=== PATIENT | female | born 1960 | race African-American/Black ===

== ENCOUNTER 2022-01-21 10:05 | Emergency (ER) | payer OTHER ==
[~2022-01-21] VITALS: Ht 167.6 cm; Wt 126.6 kg
[2022-01-21 10:23] VITALS: BP 102/49
--- NOTE | 2022-01-21 11:06 | NUR ---
MEDICAL STUDENT AT BEDSIDE.
--- NOTE | 2022-01-21 11:06 | NUR ---
61 Y/O FEMALE C/O R NECK/CYST/PIMPLE REDNESS PAIN 10/ X2WEEK. DENIES FEVER/CHILLS. DENIES N/V. PMH: DM, HTN, HLD, KIDNEY MASS ALLERGIES: NAPROXEN
--- NOTE | 2022-01-21 13:07 | NUR ---
61/F PRESENTS TO ED WITH C/O RIGHT NECK PAIN X2 WEEKS. PATIENT STATES SHE HAS HAD REDNESS AND TENDERNESS TO SITE, STATING SHE BELIEVES SHE HAS A CYST. DENIES N/V/D, FEVERS OR CHILLS.
[2022-01-21] MEDS ORDERED: LIDOCAINE MPF 1% 10 MG/ML VIAL INJ ONE (13:35)
[2022-01-21] MEDS ORDERED: CEPH500C16 PO (13:48)
--- NOTE | 2022-01-21 14:04 | NUR ---
MD LAUREANO AT BEDSIDE.
[2022-01-21] MEDS ORDERED: BACITRACIN OINT 500 UNITS/GM PKT TP ONE (14:05)
--- NOTE | 2022-01-21 14:53 | NUR ---
Patient discharged with v/s stable. Written and verbal after care instructions given and explained. Patient alert, oriented and verbalized understanding of instructions. Ambulatory with steady gait. All questions addressed prior to discharge. ID band removed. Patient advised to follow up with PMD. Rx of CEPHALEXIN given. Opportunity to ask questions provided and answered.
== END 2022-01-21 14:50 | disposition home or self-care (01) ==
LOC: MED 10:05
DX: S11.91XA Laceration without foreign body of unspecified part of neck, initial encounter (principal); I10 Essential (primary) hypertension; E11.9 Type 2 diabetes mellitus without complications; E78.5 Hyperlipidemia, unspecified; Z79.4 Long term (current) use of insulin; Z79.899 Other long term (current) drug therapy; Z79.1 Long term (current) use of non-steroidal anti-inflammatories (NSAID); X58.XXXA Exposure to other specified factors, initial encounter; Y93.89 Activity, other specified; Y92.89 Other specified places as the place of occurrence of the external cause; Y99.8 Other external cause status
CPT/HCPCS: 10060; 99284; J2001

== ENCOUNTER 2022-01-23 10:20 | Emergency (ER) | payer OTHER ==
[~2022-01-23] VITALS: Ht 167.6 cm; Wt 131.1 kg
[~2022-01-23 10:20] MED LIST: CEPH500C16 PO
[2022-01-23 10:36] VITALS: BP 115/74
--- NOTE | 2022-01-23 10:46 | NUR ---
PT W/C ASSISTED TO BED 4.
--- NOTE | 2022-01-23 11:20 | NUR ---
61 Y.O. F BIB FAMILY FOR WOUND CHECK. SEEN HERE 2 DAYS AGO FOR ACUTE INFECTED RIGHT LATERAL NECK CYST S/P I&D. PT SAYS THAT AFTER BATHING THIS MORNING THE SITE WAS BURNING AND PAINFUL. 9/10 PAIN RIGHT NOW. PT WAS GIVEN ANTIBIOTIC ON THURSDAY AND TAKES NORCOS AT HOME FOR ARTHRITIS. TOOK LAST DOSE OF NORCO AT 0730 THIS MORNING. A&OX4, WALKS WITH A WALKER, VITALS WNL FOR PT AND SKIN IS INTACT EXCEPT FOR NECK WOUND. PMH: DM, HLD, HTN
[2022-01-23 12:32] VITALS: BP 115/74
--- NOTE | 2022-01-23 12:33 | NUR ---
Patient discharged with v/s stable. Written and verbal after care instructions given and explained. Patient verbalized understanding. Ambulatory with steady gait. All questions addressed prior to discharge. Advised to follow up with PMD.
== END 2022-01-23 12:33 | disposition home or self-care (01) ==
LOC: MED 10:20
DX: L02.413 Cutaneous abscess of right upper limb (principal); E11.9 Type 2 diabetes mellitus without complications; I10 Essential (primary) hypertension; Z79.899 Other long term (current) drug therapy; Z88.8 Allergy status to other drugs, medicaments and biological substances
CPT/HCPCS: 99281

== ENCOUNTER 2022-08-12 13:20 | Inpatient (IN) | payer MEDICARE, OTHER ==
[~2022-08-12] VITALS: Ht 170.2 cm; Wt 124.9 kg
[2022-08-12] MEDS: DEXTROSE 5% 1,000 ML IV SCH (01:00)
[2022-08-12 13:26] VITALS: BP 86/47
--- NOTE | 2022-08-12 13:26 | NUR ---
BIBA TAKEN TO BED 6
[2022-08-12] MEDS ORDERED: NALOXONE 0.4 MG/ML VIAL ONE (13:38)
[2022-08-12] MEDS ORDERED: NALOXONE 0.4 MG/ML VIAL IVP ONE (13:40)
--- NOTE | 2022-08-12 14:08 | NUR ---
LAB AT BEDSIDE
--- NOTE | 2022-08-12 14:08 | NUR ---
pt swabbed for covid(ellie) and flu. handed to lab
[2022-08-12 14:37] LABS: BASOPHILS # (AUTO) 0.1 K/uL (0.00-0.22); EOSINOPHILS # (AUTO) 0.2 K/uL (0-0.4); EOSINOPHILS % (AUTO) 1.8 % (0.0-4.0); HEMATOCRIT 44.5 % (36-48); HEMOGLOBIN 13.5 g/dL (12.0-16.0); LYMPHOCYTES # (AUTO) 2.6 K/uL (2.5-16.5); LYMPHOCYTES % (AUTO) 27.3 % (20.5-51.1); MEAN CORPUSCULAR HEMOGLOBIN 28 pg (27-31); MEAN CORPUSCULAR HGB CONC 30 g/dL (33-37); MEAN CORPUSCULAR VOLUME 91.6 fL (80-94); MONOCYTES % (AUTO) 10.7 % (1.7-9.3); NEUTROPHILS # (AUTO) 5.6 K/uL (1.8-7.7); NEUTROPHILS % (AUTO) 59.2 % (42.2-75.2); PLATELET COUNT (AUTO) 272 K/uL (140-450); RED BLOOD CELL COUNT(AUTO) 4.86 MIL/uL (4.20-5.40); RED CELL DISTRIBUTION WIDTH 16.3 % (11.6-13.7); WHITE BLOOD COUNT (AUTO) 9.4 K/uL (4.8-10.8)
[2022-08-12 14:56] LABS: PROTHROMBIN TIME 14.6 secs (10.8-13.4)
[2022-08-12 15:02] LABS: ALBUMIN 2.7 g/dL (3.4-5.0); ANION GAP 10.6 (8-16); CARBON DIOXIDE 21.5 mmol/L (21-32); POTASSIUM 4.1 mmol/L (3.5-5.1); TOTAL BILIRUBIN 0.5 mg/dL (0.0-1.0)
[2022-08-12] MEDS ORDERED: SODIUM BICARBONATE 8.4% PFS 50 MEQ/50 ML SYR IVP ONE ×2 (15:40)
[2022-08-12] MEDS ORDERED: NACL 3% 100 ML IV ONE (15:40)
--- NOTE | 2022-08-12 16:10 | NUR ---
ABG RESULTS GIVEN TO , BIPAP SETTINGS ADJUSTED TO 16/6, R18 FIO2 REMAINS 100%. ALARMS ON AND FUNCTIONING.
--- NOTE | 2022-08-12 16:16 | NUR ---
pt went to ct
--- NOTE | 2022-08-12 16:50 | NUR ---
Dr Hogan at bedside, discussing intubation with patient. pt refused intubation at this time. dr Hogan explained risk of not intubating. pt on bipap at this time.
[2022-08-12] MEDS ORDERED: METF-713 PO (16:53)
[2022-08-12] MEDS ORDERED: SITA50TA3 PO (16:53)
[2022-08-12] MEDS ORDERED: AMLO-3 PO (16:53)
[2022-08-12] MEDS ORDERED: HYDR-4924 PO (16:53)
[2022-08-12] MEDS ORDERED: LISI20TA29 PO (16:53)
--- NOTE | 2022-08-12 17:00 | NUR ---
Pt arrived to ED from home. DNR in chart dated. Pt wishes DNR. Dr. Crocker confirmed with patient at bedside. per dr. crocker, pt is alert to make decision.
--- NOTE | 2022-08-12 17:24 | NUR ---
after careful discussion, pt wishes to be full code and verbally agreed for intubation.
[2022-08-12] MEDS ORDERED: NACL 0.9% 1,000 ML IV ONE (17:40)
[2022-08-12] MEDS ORDERED: MORPHINE SULFATE 2 MG/ML SYR IVP PRN (17:40)
[2022-08-12] MEDS ORDERED: ACETAMINOPHEN 325 MG TAB PO PRN (17:40)
[2022-08-12] MEDS ORDERED: POTASSIUM CHLORIDE 10 MEQ TABER PO PRN (17:40)
[2022-08-12] MEDS ORDERED: guaiFENesin DM 200/20 MG-10 ML 10 ML UDC PO PRN (17:40)
[2022-08-12] MEDS ORDERED: HYDROcodone/APAP 7.5/325 MG 1 TAB PO PRN (17:40)
[2022-08-12] MEDS ORDERED: ZOLPIDEM 5 MG TAB PO PRN (17:40)
[2022-08-12] MEDS ORDERED: DOCUSATE SODIUM 100 MG GELCAP PO PRN (17:40)
[2022-08-12] MEDS ORDERED: ONDANSETRON 4 MG/2 ML VIAL IM/IVP PRN (17:40)
[2022-08-12] MEDS ORDERED: INTUBATION KIT MC ONE (17:56)
[2022-08-12] MEDS ORDERED: EPINEPHrine PFS 0.1 MG/ML SYR IVP ONE (18:09)
[2022-08-12] MEDS ORDERED: EPINEPHrine 1 MG/ML AMP IV ONE (18:14)
--- NOTE | 2022-08-12 18:14 | NUR ---
PER DR JAMESON VERBAL ORDER, ADMINISTERED 0.1MG EPI IN 9ML NS IV PUSH. Addendum: 08/12/22 at [email or web address] JAMESON VERBAL ORDER, ADMINISTERED 0.01MG EPI IN 9ML NS IV PUSH.
--- NOTE | 2022-08-12 18:18 | NUR ---
intubation note: 1814: etomidate 30, frank 100 infused 1815: intubation initiated with 7.5 ettube 1817: intubation completed, 23 cm@ teeth
--- NOTE | 2022-08-12 18:25 | NUR ---
DATABASE ADMINISTRATION PROJECT MANAGER BEDSIDE FOR POST INTUBATION X RAY
[2022-08-12 18:28] LABS: MAGNESIUM 1.8 mg/dL (1.8-2.4); PHOSPHORUS 4.8 mg/dL (2.5-4.9)
[2022-08-12] MEDS ORDERED: MIDAZOLAM MDV 50 MG in NACL 0.9% 40 ML IV PRN (18:30)
--- NOTE | 2022-08-12 18:35 | NUR ---
Patient will be admitted to care of DR OSEGUERA. Admited to ICU. Will go to room1. Belongings list completed. Report to ANASTASIA SKAGGS.
--- NOTE | 2022-08-12 18:50 | NUR ---
RECEIVED PT FROM ER, INTUBATED, F/C INSERTED USING STERILE TECHNIQUE, OG INSERTED. IV VERSED STARTED PER PROTOCOL. STACH ON MONITOR. BILATERAL 20G TO ACS INTACT AND PATENT.
[2022-08-12] MEDS ORDERED: ETOMIDATE 20 MG/10 ML VIAL IVP ONE (18:55)
[2022-08-12] MEDS ORDERED: SUCCINYLCHOLINE CHLORIDE 200 MG/10 ML VIAL IVP ONE (18:55)
[2022-08-12] MEDS ORDERED: ROCURONIUM 50 MG/5 ML VIAL IV ONE (19:05)
[2022-08-12] MEDS: EPINEPHrine 1 MG/ML AMP IV ONE ×2 (19:08→19:21)
--- NOTE | 2022-08-12 19:08 | NUR ---
REPORT GIVEN TO JAMIE SKAGGS FOR CONTINUATION OF CARE
--- NOTE | 2022-08-12 19:15 | NUR ---
TRANSFER OF CARE FROM DAY SHIFT, REPORT RECEIVED FROM GILES OCONNOR. PATIENT RECEIVED INTUBATED, SEDATED, AND ON VENT. CURRENT VENT SETTINGS ARE FOLLOWS: AC/VC, FIO2 = 100%, VT = 500, R = 24, PEEP = OFF. PATIENT HAS 20G IN THE RIGHT AC AND HAS THE FOLLOWING MEDICATIONS RUNNING: VERSED 50MG AT 1MG/HR. NORMAL SALINE AT 30ML/HR, CURRENT VITALS AT START OF SHIFT: BP = 139/82, HR= 101, O2 SAT = 96%, R = 24, TEMP = 97.0F
[2022-08-12 20:00] VITALS: BP 132/69
[2022-08-12 20:26] LABS: ANION GAP 12.7 (8-16); CARBON DIOXIDE 29.2 mmol/L (21-32); CREATININE 1.4 mg/dL (0.6-1.3); POTASSIUM 5.9 mmol/L (3.5-5.1)
[2022-08-12] MEDS ORDERED: fentaNYL citrate 0.05 MG/ML VIAL ONE (20:49)
[2022-08-12 21:00] VITALS: BP 122/62
[2022-08-12] MEDS: fentaNYL citrate 1 MG in NACL 0.9% 80 ML IV PRN (21:10)
[2022-08-12] MEDS ORDERED: AZITHROMYCIN 500 MG INJ VIAL IV ONE (21:18)
[2022-08-12] MEDS ORDERED: cefTRIAXone 1,000 MG VIAL ONE (21:19)
[2022-08-12] MEDS: PROPOFOL 1000 MG/100 ML PREMIX 100 ML IV PRN (21:42)
[2022-08-12] MEDS ORDERED: PROPOFOL 1000 MG/100 ML PREMIX 100 ML IV ONE (21:42)
[2022-08-12 22:00] VITALS: BP 125/76
[2022-08-12] MEDS ORDERED: SODIUM ZIRCONIUM CYCLOSILICATE 10 GM POWD.PACK PO SCH (22:10)
[2022-08-12 23:00] VITALS: BP 124/61
[2022-08-13] VITALS (21 sets, daily range): BP systolic 78–131; BP diastolic 45–77
[2022-08-13] MEDS: AZITHROMYCIN 500 MG in DEXTROSE 5% 250 ML IV SCH ×2 (00:23→21:08)
[2022-08-13] MEDS: BLOOD GLUCOSE MONITORING 1 DEV DEV FS SCH ×4 (00:37→18:20)
[2022-08-13 00:42] LABS: ANION GAP 15.3 (8-16); CARBON DIOXIDE 26.8 mmol/L (21-32); CREATININE 1.2 mg/dL (0.6-1.3); POTASSIUM 5.1 mmol/L (3.5-5.1)
[2022-08-13] MEDS: DEXTROSE 5% 1,000 ML IV SCH ×4 (01:00→20:22)
[2022-08-13] MEDS: PROPOFOL 1000 MG/100 ML PREMIX 100 ML IV PRN ×4 (01:18→20:20)
[2022-08-13] MEDS ORDERED: NOREPINEPHRINE 4 MG/4 ML VIAL IV ONE (02:37)
[2022-08-13] MEDS: NOREPINEPHRINE 4 MG in DEXTROSE 5% 250 ML IV PRN ×2 (02:38→14:49)
[2022-08-13 05:11] LABS: BASOPHILS # (AUTO) 0.1 K/uL (0.00-0.22); BASOPHILS % (AUTO) 0.5 % (0.0-2.0); EOSINOPHILS # (AUTO) 0.2 K/uL (0-0.4); EOSINOPHILS % (AUTO) 1.8 % (0.0-4.0); HEMATOCRIT 41.3 % (36-48); HEMOGLOBIN 12.8 g/dL (12.0-16.0); LYMPHOCYTES # (AUTO) 2.1 K/uL (2.5-16.5); LYMPHOCYTES % (AUTO) 17.7 % (20.5-51.1); MEAN CORPUSCULAR HEMOGLOBIN 27 pg (27-31); MEAN CORPUSCULAR HGB CONC 31 g/dL (33-37); MEAN CORPUSCULAR VOLUME 88.4 fL (80-94); MONOCYTES # (AUTO) 1.5 K/uL (0.8-1.0); MONOCYTES % (AUTO) 12.3 % (1.7-9.3); NEUTROPHILS # (AUTO) 8.2 K/uL (1.8-7.7); NEUTROPHILS % (AUTO) 67.7 % (42.2-75.2); PLATELET COUNT (AUTO) 249 K/uL (140-450); RED BLOOD CELL COUNT(AUTO) 4.67 MIL/uL (4.20-5.40); RED CELL DISTRIBUTION WIDTH 16.3 % (11.6-13.7); WHITE BLOOD COUNT (AUTO) 12.1 K/uL (4.8-10.8)
[2022-08-13 05:19] LABS: ANION GAP 13.3 (8-16); CARBON DIOXIDE 27.7 mmol/L (21-32); CREATININE 1.1 mg/dL (0.6-1.3)
[2022-08-13] MEDS ORDERED: fentaNYL citrate 0.05 MG/ML VIAL ONE ×2 (05:52→05:53)
[2022-08-13] MEDS: fentaNYL citrate 1 MG in NACL 0.9% 80 ML IV PRN (06:04)
[2022-08-13 06:34] LABS: BARBITURATE, URINE NEGATIVE ng/ml (NEG <=200); BENZODIAZEPINE, URINE NEGATIVE ng/mL (NEG <=200); CANNABINOID, URINE NEGATIVE ng/mL (NEG <=50); COCAINE, URINE NEGATIVE ng/mL (NEG <=300); OPIATE, URINE POSITIVE ng/mL (NEG <=2000); PHENCYCLIDINE SCREEN,URINE NEGATIVE ng/mL (NEG <=25)
[2022-08-13] MEDS: INSULIN LISPRO SLIDING SCALE 100 UNITS/ML VIAL SUBQ PRN ×2 (06:40→18:22)
--- NOTE | 2022-08-13 07:30 | NUR ---
TRANSFER OF CARE ENDORSED TO [place] RN
[2022-08-13] MEDS ORDERED: PANTOPRAZOLE 40 MG INJ VIAL IVP SCH (09:00)
[2022-08-13] MEDS ORDERED: PANTOPRAZOLE 40 MG TABEC PO SCH (09:00)
--- NOTE | 2022-08-13 09:32 | NUR ---
PATIENT HAS BEEN SCREENED AND CATEGORIZED HIGH NUTRITION RISK. PATIENT WILL BE SEEN WITHIN 1-[address] RECEIVED FNS NUTRITION CONSULT FOR TUBE FEEDING ON 08/13/[address] KANU BEATTY RD
[2022-08-13 09:55] LABS: ANION GAP 12.1 (8-16); CREATININE 1.2 mg/dL (0.6-1.3); POTASSIUM 5.1 mmol/L (3.5-5.1)
--- NOTE | 2022-08-13 10:51 | NUR ---
PICC LINE NURSE AT BEDSIDE.
[2022-08-13] MEDS: PANTOPRAZOLE 40 MG INJ VIAL IVP SCH (13:23)
--- NOTE | 2022-08-13 13:40 | NUR ---
DC PLANNIN YRS OLD FEMALE PATIENT WAS ADMITTED FROM HOME WITH A DX OF HYPONATREMIA. PT HAS A HX OF DM, HTN, HLD AND ARTHRITIS. PT INTUBATED SEDATED FIO2 65% ON PROPOFOL , FENTANYL , PRECEDEX DRIP IV ABX ZOSYN CONSULTED WITH PULMO, CARDIO, NEPHRO. DC PLAN PER PT RESPOND TO THE TREATMENT. CM TO FOLLOW Addendum: 08/20/22 at 1751 by Kayla Cramer RN DC PLANNING PT STILL INTUBATED SEDATED FIO2 40%, FAILED CPAP TRIAL ON PRECEDEX DRIP CONTINUED IV ABX ZOSYN. PULMO, CARDIO, AND NEPHRO FOLLOWING. ZACH SPOKE WITH PT'S SON (DECISION MAKER) FOR UPDATES. CM TO FOLLOW Addendum: 08/22/22 at 1128 by Kayla Cramer RN DC PLANNING: PATIENT CONTINUOUS TO FAIL CPAP TRIALS, STILL INTUBATED SEDATED ON PRECEDEX DRIP OFF PROPOFOL. CONTINUED IV ABX WITH ZOSYN. PER CRITICAL CARE DR HASKINS MAY NEED TRACHEOSTOMY NEXT WEEK IF UNABLE TO BE EXTUBATED BY THIS WEEKEND. CM CONTACT [facility] [phone] STATED MEDICARE A& B WILL BE RESPONSIBLE FOR HOSPITAL STAY HOWEVER TO CONTACT THEM FOR ANY DC NEEDS. CM TO FOLLOW Addendum: 08/26/22 at 1104 by Kayla Cramer RN DC PLANNING: PATIENT STILL INTUBATED SEDATED ON DOPAMINE DRIP AND CONTINUED IV ABX ZOSYN. PROGNOSIS IS POOR . FAMILY STATED NO PLAN FOR TRACH WEAN TOLERATED. RECOMMENDED INPT HOSPICE. CM TO FOLLOW Addendum: 08/28/22 at 1227 by Kayla Cramer RN DC PLANNING: PATIENT STILL INTUBATED SEDATED FIO2 30%. CONTINUED IV ABX ZOSYN. ON DOPAMINE AND PRECEDEX DRIPS. PER PULMO PATIENT IS NOT TOLERATED CPAP DISCUSSED WITH FAMILY AND SON WILL DISCUSS WITH FAMILY IF NO BETTER BY THURSDAY NEEDS TO DECIDE. CM TO FOLLOW
--- NOTE | 2022-08-13 13:59 | NUR ---
Seen and examined by Dr. Mallory. New order received for echo.
[2022-08-13 14:29] LABS: ANION GAP 12.4 (8-16); CARBON DIOXIDE 27.1 mmol/L (21-32); CREATININE 1.2 mg/dL (0.6-1.3); POTASSIUM 4.5 mmol/L (3.5-5.1)
--- NOTE | 2022-08-13 15:17 | NUR ---
Seen and examined by Dr. Rdz. Reported BMP results. Pt to continue D5W IVF and BMP Q6hr.
--- NOTE | 2022-08-13 15:21 | NUR ---
08/13/22 INITIAL ASSESSMENT COMPLETED PLEASE REFER TO NUTRITION ASSESSMENT UNDER CARE ACTIVITY FOR ESTIMATED NUTRITIONAL NEEDS. 1. CONTINUE NPO, PER MD 2. WHEN MEDICALLY APPROPRIATE, AND IF PT STARTS TUBE FEEDING, RECOMMEND GLUCERNA 1.2 @65 ML/HR, FWF 100 ML Q6H - WITH PROPOFOL @15.296 ML/HR (PROVIDES (403 KCAL/DAY), WILL PROVIDE 1560 ML TOTAL VOLUME, 2275 KCAL, 93.6 G PROTEIN, 1655 ML FREE WATER, MEETING 100% ESTIMATED CALORIE NEEDS AND 80% ESTIMATED PROTEIN NEEDS 3. RD TO FOLLOW-UP 2-3 DAYS, HIGH RISK REVIEWED BY KANU BEATTY RD
--- NOTE | 2022-08-13 17:20 | NUR ---
Dr. Justin at bedside examining patient. No new orders.
--- NOTE | 2022-08-13 19:10 | NUR ---
RECEIVED REPORT FROM KODY SKAGGS FOR CONTINUITY OF CARE. PT IS LYING SUPINE WITH HER EYES CLOSED. SHE IS AT A RASS -2 ON THE VENTILATOR ETT. HER SETTINGS ARE AC/VC FIO2 75%, TV 500, RATE24 AND PEEP 5. SHE IS RECEIVING SEDATION FENTANYL 1.5MG AND PROPOFOL 20MCG/KG/MIN PT HAS AN OGT WITH GLUCERNA 1.2 AT 20CC/HR AND FREE WATER AT 100CC Q6HOUR. SHE IS TOLERATING THE TREATMENTS WELL. HER RESIDUAL IS 0. SHE HAS A ROBLES ATH IN PLACE DRAINING A SMALL AMT OF KIDD YELLOW URINE.. HER IV ACCESS IS THE EMELY PICC LINE.
--- NOTE | 2022-08-13 19:23 | NUR ---
Endorsed to mine shifter nurse Lazaro for continuation of care.
--- NOTE | 2022-08-13 19:55 | NUR ---
SUPERVISOR AIRCRAFT CLEANING AT THEBEDSIDE DRAWING A BMP FROM THE LEFT BRACHIAL SITE.
[2022-08-13 20:20] LABS: ANION GAP 11.4 (8-16); CARBON DIOXIDE 27.1 mmol/L (21-32); CREATININE 1.1 mg/dL (0.6-1.3); POTASSIUM 4.5 mmol/L (3.5-5.1)
--- NOTE | 2022-08-13 20:55 | NUR ---
SODIUM RESULT FROM DRAW IS 138
--- NOTE | 2022-08-13 23:15 | NUR ---
CALLED PLACE TO THE NEPHROLOGY GROUP TO OBTAIN THE COUPON AND BOND COLLECTION CLERK MD. THE SERVICE SAID DR ESPAÑA WAS COUPON AND BOND COLLECTION CLERK; SHE PLACED A CALL TO HIM,I'M WAITING FOR A CALL BACK.
--- NOTE | 2022-08-13 23:30 | NUR ---
DR. ESPAÑA CALLED BACK AND ORDERED THE D5W TO BE CONTINUED.
[2022-08-14] VITALS (30 sets, daily range): BP systolic 86–142; BP diastolic 51–94
[2022-08-14] MEDS: BLOOD GLUCOSE MONITORING 1 DEV DEV FS SCH ×4 (00:20→17:19)
[2022-08-14] MEDS: INSULIN LISPRO SLIDING SCALE 100 UNITS/ML VIAL SUBQ PRN ×4 (00:22→17:19)
[2022-08-14] MEDS: PROPOFOL 1000 MG/100 ML PREMIX 100 ML IV PRN ×6 (00:54→21:58)
[2022-08-14 02:14] LABS: ANION GAP 12.4 (8-16); CARBON DIOXIDE 24.9 mmol/L (21-32); POTASSIUM 4.3 mmol/L (3.5-5.1)
[2022-08-14] MEDS ORDERED: NOREPINEPHRINE 4 MG/4 ML VIAL IV ONE ×2 (03:13→09:39)
[2022-08-14] MEDS: fentaNYL citrate 1 MG in NACL 0.9% 80 ML IV PRN ×4 (06:21→22:15)
--- NOTE | 2022-08-14 07:10 | NUR ---
RPORT GIVEN TO ANA SKAGGS FOR CONTINUITY OF CARE.
[2022-08-14 08:18] LABS: BASOPHILS # (AUTO) 0.1 K/uL (0.00-0.22); BASOPHILS % (AUTO) 0.5 % (0.0-2.0); EOSINOPHILS # (AUTO) 0.2 K/uL (0-0.4); EOSINOPHILS % (AUTO) 1.3 % (0.0-4.0); HEMATOCRIT 40.2 % (36-48); HEMOGLOBIN 12.6 g/dL (12.0-16.0); LYMPHOCYTES # (AUTO) 2.2 K/uL (2.5-16.5); LYMPHOCYTES % (AUTO) 13.1 % (20.5-51.1); MEAN CORPUSCULAR HEMOGLOBIN 27 pg (27-31); MEAN CORPUSCULAR HGB CONC 31 g/dL (33-37); MONOCYTES % (AUTO) 11.9 % (1.7-9.3); NEUTROPHILS # (AUTO) 12.1 K/uL (1.8-7.7); NEUTROPHILS % (AUTO) 73.2 % (42.2-75.2); PLATELET COUNT (AUTO) 231 K/uL (140-450); RED BLOOD CELL COUNT(AUTO) 4.62 MIL/uL (4.20-5.40); WHITE BLOOD COUNT (AUTO) 16.6 K/uL (4.8-10.8)
[2022-08-14] MEDS: PANTOPRAZOLE 40 MG INJ VIAL IVP SCH (09:03)
[2022-08-14] MEDS: NOREPINEPHRINE 4 MG in DEXTROSE 5% 250 ML IV PRN ×2 (10:12→17:55)
[2022-08-14] MEDS: DEXTROSE 5% 1,000 ML IV SCH ×3 (10:15→21:40)
[2022-08-14 11:13] LABS: MAGNESIUM 1.2 mg/dL (1.8-2.4); PHOSPHORUS 2.1 mg/dL (2.5-4.9)
[2022-08-14] MEDS: PIPERACILLIN/TAZOBACTAM 3.375 GM in DEXTROSE 5% 50 ML IV SCH ×3 (11:48→23:31)
[2022-08-14] MEDS ORDERED: MAG SULF 2000 MG/WATER PREMIX 50 ML IV SCH (12:00)
[2022-08-14] MEDS ORDERED: FUROSEMIDE 20 MG/2 ML VIAL IVP SCH (13:35)
[2022-08-14 13:36] LABS: ANION GAP 13.9 (8-16); CHLORIDE 98 mmol/L (98-107); CREATININE 1.2 mg/dL (0.6-1.3); GFR ARICAN-AMERICAN 59 mL/min (>90); GLUCOSE 206 mg/dL (74-106); POTASSIUM 3.9 mmol/L (3.5-5.1); SODIUM SERUM 134 mmol/L (136-145); UREA NITROGEN, BLOOD 18 mg/dL (7-18)
--- NOTE | 2022-08-14 15:36 | NUR ---
NURSE RECEIVED ORDER TO TURN OFF SEDATION AND HAVE RT PLACE PT ON CPAP - PATIENT WOKE VERY COMBATIVE - TRYING TO SIT UP - PATIENT HAD A GOOD RESPIRATORY DRIVE ON CPAP - WEANING PARAMETERS WERE DOCUMENTED ON FLOW SHEET - PATIENT WOULD NOT HOLD STILL AND NURSE HAD TO PLACE PATIENTS SEDATION BACK ON BOARD - NURSE TOOK NOTE THAT PATIENT WAS ABLE TO BREATHE ON HER OWN AND STATED SHE WILL BE INFORMING MD OF RESULTS OF SEDATION VACATION AND CPAP.
--- NOTE | 2022-08-14 16:29 | NUR ---
DC PLANNING ASSESSMENT COMPLETE PLEASE REFER TO ASSESSMENT FOR DETAILS TENTATIVE DC PLAN IS FOR PT TO RETURN HOME, PENDING PHYSICIAN RECOMMENDATIONS. . Addendum: 08/14/22 at 1630 by Ken Zepeda SS Amended: Links added. Addendum: 08/21/22 at 1434 by Ken Zepeda SS SPOKE WITH PTS SON ANA, WHO REPORTS HE IS CURRENTLY IN TOWN FROM [place]. ANA REPORTS HE FLEW IN THURSDAY AND WILL BE IN TOWN FOR FOR THE NEXT FEW WEEKS. ANA REPORTS HES BEEN IN TO VISIT PT AND HAS BEEN PROVIDED WITH UPDATES NEEDED.
--- NOTE | 2022-08-14 18:40 | NUR ---
RECEIVED REPORT FROM AM SHIFT. PATIENT WAS SEEN AND ASSESSED. PATIENT IS INTUBATED WITH ETT SIZE 7.5 AND SECURED WITH A BITING BLOCK ANCHOR-FAST 24cm @ TEETH. PATIENT IS ON VENTILATOR SUPPORT. VENTILATOR PLUGGED IN RED OUTLET. VENTILATOR ALARMS SET APPROPRIATELY AND AUDIBLE TO ENVIRONMENT. AMBU BAG AT BEDSIDE. HEAD OF BED GREATER THAN 30 DEGREES. NOTICED ADEQUATE BILATERAL CHEST RISE AND FALL. PATIENT IS IN NO RESPIRATORY DISTRESS AT THIS TIME. VENT SETTINGS: AC/PRVC RR 24, TARGETED Vt 500, PEEP 5, FiO2 65% WITH SPO2 OF 92%. BILATERAL BREATH SOUNDS ON AUSCULTATION; UPPER LOBES: COARSE LOWER LOBES: COARSE. SUCTION: SCANT TO SMALL AMOUNT OF WHITE THICK SECRETIONS FROM ETT AND SMALL WHITE THIN ORALLY.
--- NOTE | 2022-08-14 19:30 | NUR ---
ASSUMED CARE OF THIS PATIENT AND ASSESSMENT DONE AND.COMPLETED.SEDATED ON FROPOFOL AT 30MCG AND FENTANYL AT 1.5MCG.RESTRAINTS IN PLACE .ON VENT SETTINGS AC/PRVC 16 FIO2 65% TV 500 PEEP 5,WITH NOTED MINIMUM SECRETIONS.GLUCERNA TUBE FEEDING INFUSING WELL AT 65ML/HOUR WITH WATER FLUSHES OF 100 ML EVERY 6 HOURS.PICC LINE PATENT ,BENIGN AND INTACT ON RIGHT UPPER ARM WITH D5W AT 125ML/HR.ROBLES DRAINING INCREASE URINE OUTPUT SECONDARY TO LASX.WILL CONTINUE TO MONITOR
[2022-08-15] VITALS (31 sets, daily range): BP systolic 86–131; BP diastolic 47–73
[2022-08-15] MEDS: BLOOD GLUCOSE MONITORING 1 DEV DEV FS SCH ×5 (00:14→23:19)
[2022-08-15] MEDS: INSULIN LISPRO SLIDING SCALE 100 UNITS/ML VIAL SUBQ PRN ×5 (00:17→23:18)
[2022-08-15] MEDS: PROPOFOL 1000 MG/100 ML PREMIX 100 ML IV PRN ×5 (01:50→23:28)
[2022-08-15] MEDS: fentaNYL citrate 1 MG in NACL 0.9% 80 ML IV PRN (03:08)
--- NOTE | 2022-08-15 04:38 | NUR ---
AT BEDSIDE, SPO2 95%. TITRATED FiO2 FROM 65% TO 60%. SPO2 93%. PT TOLERATING WELL AT THIS TIME. RN NOTIFIED. WILL CONTINUE TO MONITOR PT.
[2022-08-15 05:31] LABS: BASOPHILS # (AUTO) 0.1 K/uL (0.00-0.22); BASOPHILS % (AUTO) 0.4 % (0.0-2.0); EOSINOPHILS # (AUTO) 0.3 K/uL (0-0.4); EOSINOPHILS % (AUTO) 2.1 % (0.0-4.0); HEMATOCRIT 37.3 % (36-48); HEMOGLOBIN 12.1 g/dL (12.0-16.0); LYMPHOCYTES # (AUTO) 2.4 K/uL (2.5-16.5); LYMPHOCYTES % (AUTO) 14.4 % (20.5-51.1); MEAN CORPUSCULAR HEMOGLOBIN 28 pg (27-31); MEAN CORPUSCULAR HGB CONC 33 g/dL (33-37); MEAN CORPUSCULAR VOLUME 86.5 fL (80-94); MONOCYTES # (AUTO) 2.1 K/uL (0.8-1.0); MONOCYTES % (AUTO) 12.4 % (1.7-9.3); NEUTROPHILS # (AUTO) 11.8 K/uL (1.8-7.7); NEUTROPHILS % (AUTO) 70.7 % (42.2-75.2); PLATELET COUNT (AUTO) 195 K/uL (140-450); RED BLOOD CELL COUNT(AUTO) 4.31 MIL/uL (4.20-5.40); RED CELL DISTRIBUTION WIDTH 15.9 % (11.6-13.7); WHITE BLOOD COUNT (AUTO) 16.7 K/uL (4.8-10.8)
[2022-08-15] MEDS: DEXTROSE 5% 1,000 ML IV SCH (06:17)
[2022-08-15] MEDS: PIPERACILLIN/TAZOBACTAM 3.375 GM in DEXTROSE 5% 50 ML IV SCH ×4 (06:27→23:21)
--- NOTE | 2022-08-15 07:00 | NUR ---
ENDORSED [facility] DAY SHIFT RN TO CONTINUE CARE PLAN.
--- NOTE | 2022-08-15 07:32 | NUR ---
SBAR REPORT REPORT RECEIVED FROM ODILIA RN, ALL CARES ASSUMED. PT INTUBATED AND SEDATED. VENT SETTINGS AC/PRVC 24, 500, 60%, 5. LEVOPHED, PROPOFOL, FENTANYL AND IVF INFUSING TO EMELY PICC. ROBLES CATHETER DRAINING CLEAR YELLOW URINE. BED IN LOW AND LOCKED POSITION.
--- NOTE | 2022-08-15 07:50 | NUR ---
CPAP TRIAL 05/27. PT ANXIETY AND SATURATION DROPPED TO BELOW 86%. RETURNED TO CURRENT VENT SETTING ACVC 500,24, +6,60%. WILL TRY AGAIN.
--- NOTE | 2022-08-15 08:15 | NUR ---
DAILY SEDATION VACATION FOR CPAP TRIAL AT 0750. PROPOFOL TITRATED DOWN TO 15 MCG/MIN. PT STARTED TO ROUSE AND BECAME VERY AGITATED AND RESTLESS. CPAP LASTED APPROXIMATELY 5 MINUTES. RT AI AT BEDSIDE WELL. PROPOFOL INCREASED. VSS. PT CALM AND RELAXED AFTER PROPOFOL DRIP INCREASED.
[2022-08-15] MEDS: PANTOPRAZOLE 40 MG INJ VIAL IVP SCH (08:51)
[2022-08-15] MEDS ORDERED: LORazepam 2 MG/ML VIAL IVP PRN (09:05)
[2022-08-15 09:50] LABS: ANION GAP 12.9 (8-16); CARBON DIOXIDE 23.8 mmol/L (21-32); CREATININE 1.1 mg/dL (0.6-1.3); POTASSIUM 3.7 mmol/L (3.5-5.1)
--- NOTE | 2022-08-15 10:30 | NUR ---
DR YENIFER RAMÍREZ AT BEDSIDE, DISCUSSED PLAN OF CARE. NO NEW ORDERS AT THIS TIME. CONTINUE DAILY SEDATION VACATION FOR CPAP TRIAL .
[2022-08-15] MEDS: NACL 0.9% 1,000 ML IV SCH (15:12)
[2022-08-15] MEDS: fentaNYL citrate - 50mL vial 2.5 MG in NACL 0.9% 200 ML IV PRN (15:16)
--- NOTE | 2022-08-15 15:28 | NUR ---
08/15/22 RD FOLLOW UP COMPLETED PLEASE REFER TO NUTRITION ASSESSMENT UNDER CARE ACTIVITY FOR ESTIMATED NUTRITIONAL NEEDS. 1. GLUCERNA 1.2 @65 ML/HR, FWF 100 ML Q6H - WITH D5 @125 ML/HR (PROVIDES 510 KCAL/DAY), WILL PROVIDE 1560 ML TOTAL VOLUME, 2382 KCAL, 94 G PROTEIN, 1656 ML FREE WATER, MEETING 100% ESTIMATED CALORIE NEEDS AND 82% ESTIMATED PROTEIN NEEDS 2. MONITOR GI SYMPTOMS, GASTRIC RESIDUALS, AND NUTRITION RELATED LAB VALUES 3. CONSULT RD PRN 4. RD TO FOLLOW-UP 2-3 DAYS, HIGH RISK REVIEWED BY KANU BEATTY RD
[2022-08-15] MEDS ORDERED: MAG SULF 2000 MG/WATER PREMIX 100 ML IV SCH (19:00)
--- NOTE | 2022-08-15 19:32 | NUR ---
SBAR REPORT GIVEN TO ODILIA RN, ALL CARES ENDORSED.
--- NOTE | 2022-08-15 20:00 | NUR ---
RECEIVED PATIENT SEDATED ON PROPOFOL 30MCG AND FENTANYL 1.5MCG,OPEN EYES.AFEBRILE.ASYMPTOMATIC OF PAIN AND DISCOMFORT.RESTRAINTS STILL MAINTAINED TO PREVENT FROM PULLING OUT VITAL LINES.STILL ON VENTILATOR WITH SETTINGS AC/PRVC 24 TV 500 FIO2 60% PEEP 5 WITH MINIMUM SECRETIONS.ORAL CARE RENDERED .ABDOMEN OBESE WITH + BS X4 QUADS .GLUCERNA AT 65ML /HR INFUSING WELL AND WATER FLUSH OF 100 EVERY 6 /HR ONGOING.ROBLES CATHETER DRAINING ADEQUATE AMOUNT OF URINE.SKIN STILL INTACT .POSITIONING DONE EVERY 2 HOURS.WILL CONTINUE TO PROCEED WITH CARE PLAN.
[2022-08-16] VITALS (29 sets, daily range): BP systolic 94–144; BP diastolic 52–81
[2022-08-16] MEDS ORDERED: fentaNYL citrate 0.05 MG/ML VIAL ONE ×2 (01:11→01:14)
[2022-08-16] MEDS: NOREPINEPHRINE 16 MG in DEXTROSE 5% 250 ML IV PRN (01:37)
[2022-08-16] MEDS: NACL 0.9% 1,000 ML IV SCH ×2 (01:50→15:43)
[2022-08-16] MEDS: fentaNYL citrate - 50mL vial 2.5 MG in NACL 0.9% 200 ML IV PRN ×3 (02:05→19:10)
[2022-08-16] MEDS: PROPOFOL 1000 MG/100 ML PREMIX 100 ML IV PRN ×4 (03:25→23:36)
[2022-08-16] MEDS: INSULIN LISPRO SLIDING SCALE 100 UNITS/ML VIAL SUBQ PRN ×3 (05:50→23:25)
[2022-08-16] MEDS: BLOOD GLUCOSE MONITORING 1 DEV DEV FS SCH ×4 (05:53→23:22)
[2022-08-16] MEDS: PIPERACILLIN/TAZOBACTAM 3.375 GM in DEXTROSE 5% 50 ML IV SCH ×4 (05:54→23:23)
[2022-08-16 06:11] LABS: BASOPHILS # (AUTO) 0.1 K/uL (0.00-0.22); BASOPHILS % (AUTO) 0.6 % (0.0-2.0); EOSINOPHILS # (AUTO) 0.5 K/uL (0-0.4); EOSINOPHILS % (AUTO) 3.4 % (0.0-4.0); HEMATOCRIT 37.5 % (36-48); HEMOGLOBIN 12.5 g/dL (12.0-16.0); LYMPHOCYTES % (AUTO) 12.4 % (20.5-51.1); MEAN CORPUSCULAR HEMOGLOBIN 29 pg (27-31); MEAN CORPUSCULAR HGB CONC 33 g/dL (33-37); MEAN CORPUSCULAR VOLUME 86.3 fL (80-94); MONOCYTES # (AUTO) 2.1 K/uL (0.8-1.0); MONOCYTES % (AUTO) 13.1 % (1.7-9.3); NEUTROPHILS # (AUTO) 11.2 K/uL (1.8-7.7); NEUTROPHILS % (AUTO) 70.5 % (42.2-75.2); PLATELET COUNT (AUTO) 216 K/uL (140-450); RED BLOOD CELL COUNT(AUTO) 4.34 MIL/uL (4.20-5.40); RED CELL DISTRIBUTION WIDTH 15.9 % (11.6-13.7); WHITE BLOOD COUNT (AUTO) 15.9 K/uL (4.8-10.8)
--- NOTE | 2022-08-16 07:00 | NUR ---
ENDORSED TO [facility] SHIFT RN TO CONTINUE CARE.
--- NOTE | 2022-08-16 07:36 | NUR ---
RECEIVED REPORT FROM ODILIA SKAGGS. PT CURRENTLY RESTING IN BED. OPENS EYES WHEN SPOKEN TO. GCS 13. PERRLA 3MM. ABLE TO MOVE EXTREMITIES. ATTEMPTING TO SIT UP IN BED WHEN ASSESSED BY RESPIRATORY. A/C VC 60%, 500vt, RR24, PEEP 6, ETT SECURED IN PLACE. LUNG SOUNDS CLEAR TO BILATERAL UPPER LOBES, DIMINISHED TO BILAT LOWER LOBES. CARDIAC WITHIN BASELINE. NO INJURY R/T RESTRAINTS OBSERVED. BOWEL SOUNDS ACTIVE UPPER QUADRANTS, HYPOACTIVE IN LOWER QUADRANTS. OG TUBE SECURED IN PLACE, 0 ML RESIDUAL. 20G TO THE RIGHT LOWER FOREARM FLUSHES WELL WITH NO S/S OF INFILTRATION OR PHLEBITIS. PICC TO RIGHT UPPER ARM INFUSING MEDICATIONS WITHOUT ISSUE. DRESSING IS CDI WITH NO SIGNS OF INFECTION OR SWELLING AT SITE/ARM. PULSES +2 BUE, +1 bLE. CAP REFILL <2. CLEAR YELLOW YELLOW URINE DRAINING FROM F/C. ORAL CARE PERFORMED PER PPX VAP PROTOCOL. BED IN LOWEST POSITION. WILL CONTINUE TO MONITOR.
[2022-08-16] MEDS: PANTOPRAZOLE 40 MG INJ VIAL IVP SCH (08:59)
[2022-08-16 09:35] LABS: CARBON DIOXIDE 23.1 mmol/L (21-32); CREATININE 0.9 mg/dL (0.6-1.3); POTASSIUM 4.1 mmol/L (3.5-5.1)
--- NOTE | 2022-08-16 10:40 | NUR ---
DR. CLEANING HERE TO SEE PT. NO NEW ORDERS AT THIS TIME.
--- NOTE | 2022-08-16 11:00 | NUR ---
Dr. Sarkar at bedside examining patient. No new orders.
--- NOTE | 2022-08-16 13:20 | NUR ---
PT DAUGHTER HERE AT BEDSIDE. ALL QUESTIONS ANSWERED.
[2022-08-16] MEDS ORDERED: DOCUSATE 100 MG/10 ML UDC GT PRN (13:40)
--- NOTE | 2022-08-16 13:41 | NUR ---
Seen and examined by Dr. Justin. No new orders.
[2022-08-16] MEDS ORDERED: bisacodyL 10 MG SUPP RC SCH (14:50)
--- NOTE | 2022-08-16 14:50 | NUR ---
HERE TO SEE PATIENT, PER OKAY TO CONTINUE NS @75ML/HR. NO NEW ORDERS GIVEN.
--- NOTE | 2022-08-16 19:20 | NUR ---
Endorsed to shift supervisor rn nurse Berenice for continuity of care.
--- NOTE | 2022-08-16 19:30 | NUR ---
ASSUMED CARE OF THIS PATIENT AND ASSESSMENT DONE AND COMPLETED .AFEBRILE.ASYMPTOMATIC OF PAIN AND DISCOMFORT.ON VENTILATOR WITH SETTINGS AC/PRVC 24 TV500 FIO2 65% peep 6.suctioning of secretions noted every 2 hours and prn.abdomen obese with =bs [id number].glucerna infusing at 65 ml/hour and tolerating fairly well.no vomiting and diarrhea noted.pulses present and palpable.with edema noted on extremities.starkey intact and in place draining adequate amount of urine.will continue to proceed with care..
[2022-08-17] VITALS (31 sets, daily range): BP systolic 95–129; BP diastolic 59–78
[2022-08-17] MEDS: PROPOFOL 1000 MG/100 ML PREMIX 100 ML IV PRN ×5 (03:32→20:11)
[2022-08-17] MEDS: BLOOD GLUCOSE MONITORING 1 DEV DEV FS SCH ×3 (05:48→18:18)
[2022-08-17] MEDS: INSULIN LISPRO SLIDING SCALE 100 UNITS/ML VIAL SUBQ PRN ×3 (05:49→18:14)
[2022-08-17 06:24] LABS: HEMATOCRIT 35.7 % (36-48); HEMOGLOBIN 11.9 g/dL (12.0-16.0); MEAN CORPUSCULAR HEMOGLOBIN 29 pg (27-31); MEAN CORPUSCULAR HGB CONC 33 g/dL (33-37); MEAN CORPUSCULAR VOLUME 86.8 fL (80-94); PLATELET COUNT (AUTO) 203 K/uL (140-450); RED BLOOD CELL COUNT(AUTO) 4.11 MIL/uL (4.20-5.40); RED CELL DISTRIBUTION WIDTH 15.9 % (11.6-13.7); WHITE BLOOD COUNT (AUTO) 13.7 K/uL (4.8-10.8)
[2022-08-17] MEDS: PIPERACILLIN/TAZOBACTAM 3.375 GM in DEXTROSE 5% 50 ML IV SCH ×3 (06:26→17:47)
[2022-08-17 06:32] LABS: ANION GAP 9.9 (8-16); CARBON DIOXIDE 27.1 mmol/L (21-32)
[2022-08-17 06:33] LABS: MAGNESIUM 1.7 mg/dL (1.8-2.4); PHOSPHORUS 3.2 mg/dL (2.5-4.9)
--- NOTE | 2022-08-17 07:00 | NUR ---
ENDORSED TO DAY SHIFT GILES GATES FOR CONTINUITY OF CARE.
[2022-08-17 07:34] LABS: BASOPHILS % (MANUAL) 0 % (0-2); EOSINOPHILS % (MANUAL) 4 % (0-4); LYMPHOCYTES % (MANUAL) 11 % (20-46); MONOCYTES % (MANUAL) 5 % (5-12)
--- NOTE | 2022-08-17 07:37 | NUR ---
Received pt sedated. ETT to vent settings AC VC TV 500 rate 24 PEEP 6 FiO2@65%. Sinus rhythm on monitor. OG-tube intact and tolerating well. Bowel sounds active. Renee catheter intact and draining to gravity. PICC line on right upper arm intact and patent infusing Propofol@ 30mcg/kg/min, Levophed @6mcg/min, Fentanyl @1mcg/kg/hr, and NS@TKO. Bilat soft wrist restraints in place with no signs of injury or poor circulation. Safety precautions in place.
--- NOTE | 2022-08-17 07:56 | NUR ---
CXR at bedside.
[2022-08-17] MEDS: PANTOPRAZOLE 40 MG INJ VIAL IVP SCH (08:09)
[2022-08-17] MEDS ORDERED: MAG SULF 2000 MG/WATER PREMIX 50 ML IV ONE (08:40)
--- NOTE | 2022-08-17 10:43 | NUR ---
HERE TO SEE PT. NO NEW ORDERS GIVEN AT THIS TIME.
--- NOTE | 2022-08-17 11:15 | NUR ---
HERE TO SEE PT. NO NEW ORDERS AT THIS TIME.
--- NOTE | 2022-08-17 14:50 | NUR ---
Family drivability technician came by to say prayer for pt.
--- NOTE | 2022-08-17 15:22 | NUR ---
08/17/22 RD FOLLOW UP COMPLETED. PLEASE REFER TO NUTRITION ASSESSMENT UNDER CARE ACTIVITY FOR ESTIMATED NUTRITIONAL NEEDS. 1. CONTINUE WITH GLUCERNA 1.2 @65 ML/HR, FWF 100 ML Q6H -WITH PROPOFOL @ 12.388 ML/HR (PROVIDES 327 KCAL/DAY), WILL PROVIDE 1560 ML VOLUME, 2199 KCAL, AND 94 GRAMS OF PROTEIN, MEETING 100% OF ESTIMATED KCAL AND 78% OF ESTIMATED PROTEIN NEEDS; ADEQUATE. -IF GLUCERNA NO LONGER AVAILABLE DUE TO BACKORDERED GLUCERNA, RECOMMEND VITAL AF 1.2 SCOTT WITH A GOAL RATE OF 55 ML/HR, STARTING AT 20 ML/HR AND INCREASING BY 20 ML Q4H UNTIL GOAL RATE IS REACHED; FWF 200 ML Q6H OR PER MD. WITH PROPOFOL @ 12.388ML/HR, THIS WILL PROVIDE 1910 KCAL AND 99 GRAMS PROTEIN, MEETING 96% OF ESTIMATED KCAL AND 82% OF PROTEIN NEEDS; ADEQUATE. 2. MONITOR GI SYMPTOMS, GASTRIC RESIDUALS, AND NUTRITION RELATED LAB VALUES 3. CONSULT RD PRN 4. RD TO FOLLOW-UP IN 2-3 DAYS PATIENT IS HIGH RISK. ANN DELGADO RD
[2022-08-17] MEDS: fentaNYL citrate - 50mL vial 2.5 MG in NACL 0.9% 200 ML IV PRN (16:28)
--- NOTE | 2022-08-17 17:00 | NUR ---
Patient had large loose brown BM. Pericare rendered. Renee catheter care provided. Suctioned as needed. Pt tolerated well.
[2022-08-17] MEDS ORDERED: BUMETANIDE 1 MG/4 ML VIAL IV ONE ×2 (17:05→18:25)
--- NOTE | 2022-08-17 17:15 | NUR ---
Dr. Justin at bedside examining patient. No new orders.
--- NOTE | 2022-08-17 19:06 | NUR ---
RECEIVED REPORT FROM KODY SKAGGS FOR CONTINUITY OF CARE FROM . PT IS LYING SUPINE WITH HER EYES CLOSE; PUPIL CHECK REVEALS PIN POINT PUPILS, SLUGGISH TO LIGHT PERRL. PT IS INTUBATED WITH A TUBE SIZED 7.5;24AT THE LIP LINE.. HER LUNGS SOUNDS ARE CLEAR AND DIMINISHED THROUGH OUT. HER VENT SETTINGS ARE AC/VC NOW 70% INCREASED FROM 65%. TV 500, RATE 24 AND PEEP 6 . SHE IS SUCTIONED FOR A SM AMT OF WHITE SECRETION . ORAL SUCTIONING CAUSED HER TO SQUIRM AND MOVE A LITTLE. SHE HAS AN OGT TUBE IN PLACE RECEIVING GLUCERNA AT 65CC/HOUR AND FREE WATER 100CC [id number]. SHE'S TOLERATING THE FEEDING WELL. HER RESIDUAL IS 0. HER PROPOFOL AND LEVOPHED IS RUNNING DRY. HAD TO MIX THE LEVOPHED AND THE TUBING WAS CHANGED ON THE PROPOFOL. THE SEDATION IS SUFFICIENT TO MAINTAIN THE PT AT A RASS-2. HER IV ACCESS IS A RFA 20GUAGE AND A EMELY PICC LINE ALL LUMENS AE PATENT AND FLUSH WELL. HER RIGHT HAND IS SWOLLEN COMPARED TO THE LEFT. ABD IS VERY DISTENDED AND BOWEL SOUNDS ARE HYPOACTIVE. SHE HAS A ROBLES CATH IN PLACE DRAINING A SMALL AMT OF KIDD YELLOW URINE. PT WAS REPORTED TO HAVE A BM TODAY; IT WAS LIQUID. PT IS WARM TO TOUCH ND HER SKIN IS DRY.
[2022-08-17] MEDS ORDERED: NOREPINEPHRINE 4 MG/4 ML VIAL IV ONE ×2 (19:40→19:42)
[2022-08-17] MEDS: NOREPINEPHRINE 16 MG in DEXTROSE 5% 250 ML IV PRN (20:16)
[2022-08-18] VITALS (25 sets, daily range): BP systolic 83–135; BP diastolic 56–85
[2022-08-18] MEDS: INSULIN LISPRO SLIDING SCALE 100 UNITS/ML VIAL SUBQ PRN ×5 (01:53→23:39)
[2022-08-18] MEDS: PIPERACILLIN/TAZOBACTAM 3.375 GM in DEXTROSE 5% 50 ML IV SCH ×6 (05:39→23:37)
[2022-08-18] MEDS: BLOOD GLUCOSE MONITORING 1 DEV DEV FS SCH ×5 (05:40→23:36)
[2022-08-18 05:54] LABS: BASOPHILS # (AUTO) 0.1 K/uL (0.00-0.22); BASOPHILS % (AUTO) 0.6 % (0.0-2.0); EOSINOPHILS # (AUTO) 0.5 K/uL (0-0.4); EOSINOPHILS % (AUTO) 3.7 % (0.0-4.0); HEMATOCRIT 36.9 % (36-48); HEMOGLOBIN 11.7 g/dL (12.0-16.0); LYMPHOCYTES # (AUTO) 2.4 K/uL (2.5-16.5); LYMPHOCYTES % (AUTO) 16.6 % (20.5-51.1); MEAN CORPUSCULAR HEMOGLOBIN 27 pg (27-31); MEAN CORPUSCULAR HGB CONC 32 g/dL (33-37); MEAN CORPUSCULAR VOLUME 86.7 fL (80-94); MONOCYTES # (AUTO) 2.4 K/uL (0.8-1.0); MONOCYTES % (AUTO) 16.7 % (1.7-9.3); NEUTROPHILS # (AUTO) 9.1 K/uL (1.8-7.7); NEUTROPHILS % (AUTO) 62.4 % (42.2-75.2); PLATELET COUNT (AUTO) 229 K/uL (140-450); RED BLOOD CELL COUNT(AUTO) 4.25 MIL/uL (4.20-5.40); RED CELL DISTRIBUTION WIDTH 15.6 % (11.6-13.7); WHITE BLOOD COUNT (AUTO) 14.6 K/uL (4.8-10.8)
[2022-08-18] MEDS: PROPOFOL 1000 MG/100 ML PREMIX 100 ML IV PRN ×3 (07:56→17:32)
[2022-08-18] MEDS: PANTOPRAZOLE 40 MG INJ VIAL IVP SCH (08:10)
--- NOTE | 2022-08-18 08:22 | NUR ---
DR. RONQUILLO HERE TO SEE PATIENT. NEW ORDERS GIVEN. SEE ORDERS FOR DETAIL. ORDERS NOTED AND CARRIED OUT.
--- NOTE | 2022-08-18 09:15 | NUR ---
LAB HERE FOR BLOOD DRAW. BLOOD DRAWN FROM CENTRAL LINE USING ASEPTIC TECHNIQUE. AND GIVEN TO LAB FOR PROCESSING.
[2022-08-18 09:30] LABS: ANION GAP 10.9 (8-16); CARBON DIOXIDE 28.1 mmol/L (21-32); CREATININE 1.1 mg/dL (0.6-1.3)
--- NOTE | 2022-08-18 09:47 | NUR ---
HERE TO SEE PATIENT. ORDERS GIVEN SEE ORDERS FOR DETAIL. ORDERS NOTED AND CARRIED OUT.
--- NOTE | 2022-08-18 10:32 | NUR ---
WOUND CARE NURSE HERE TO SEE BLISTERS TO RFA. NEW TX ORDERS TO BE INPUT BY WOUND CARE NURSE. INITAL DRESSING APPLIED BY WOUND CARE NURSE.
--- NOTE | 2022-08-18 10:33 | NUR ---
UNABLE TO DECLOG OG TUBE. [facility] OG TUBE INSERTED PER PROTOCOL. RADIOLOGY CONTACTED TO CONFIRM PLACEMENT.
--- NOTE | 2022-08-18 10:42 | NUR ---
SKIN ASSESSMENT DONE WITH PRIMARY NURSE TATE. PT. ADMITTED WITH MULTIPLE INTACT CLEAR FLUID BLISTERING SKIN. PT. WITH LOW FIDENCIO SCALE AT MODERATE TO HIGH RISK, CONTINUE TO FOLLOW PRESSURE INJURY PREVENTION INTERVENTIONS. POC DISCUSSED WITH PRIMARY NURSE. -APPLY VERSATEL DRESSING TO RIGHT FOREARM MULTIPLE BLISTERING SKIN Q5 DAYS AND PRN IF SOILING. -PRESSURE REDISTRIBUTION SURFACE THERAPY HILL ROM TOTAL CARE BARIATRIC BED/MATTRESS -POSITIONING: TURN AND REPOSITION PATIENT Q 2H OR SOONER USE PILLOWS TO KEEP BONY PROMINENCES FROM DIRECT CONTACT WITH SURFACES USE REPOSITIONING WEDGES TO PROVIDE 30-DEGREE ANGLE FOR SIDE LYING POSITIONS OFFLOADING OR FOAM DRESSING TO ALL TUBING TO PREVENT MEDICAL DEVICES RELATED PRESSURE INJURY -RE-EVALUATING AND MANAGING INCONTINENCE MONITOR SKIN CONDITION DURING POSITION CHANGE DO NOT MASSAGE REDNESS, BONY PROMINENCES FREQUENT AYAD-CARE AND PROVIDE BARRIER CREAMS PRN IF SOILING MOISTURE CONTROL BY OFFER BED GAMEZ/URINAL /ABSORBENT PAD TO WICK AND HOLD MOISTURE KEEP SKIN DRY AND PROTECT FROM FRICTION -MANAGE FRICTION/SHEAR/MOBILITY KEEP HOB AT THE LOWEST LEVEL OF ELEVATION NO MORE THAN 30 DEGREE UNLESS OTHERWISE CONTRAINDICATED USE LIFT SHEET OR TRANSFER DEVICE TO MOVE PATIENT AND PREVENT LATERAL SHEER. PROTECT HEELS, ELBOWS BONY PROMINENCES WITH SKIN BERRIES OR FOAM DRESSING IF EXPOSED TO FRICTION OFFLOAD BILATERAL HEELS BY PLACING PILLOWS UNDER CALVES AT ALL TIMES, UNLESS OTHERWISE CONTRAINDICATED -NUTRITION: PLEASE FOLLOW RD RECOMMENDATIONS AND OFFER NUTRITION SUPPLEMENTS IF ORDERED. PLEASE CONTACT WOUND CARE NURSE FOR ANY QUESTION AND CHANGE OF WOUND CONDITION.
[2022-08-18] MEDS: FUROSEMIDE 40 MG/4 ML VIAL IVP SCH ×2 (11:15→18:11)
--- NOTE | 2022-08-18 11:16 | NUR ---
ABG RESULTS GIVEN TO NO NEW VENT CHANGES AT THIS TIME. WILL CONTINUE TO MONITOR.
--- NOTE | 2022-08-18 11:44 | NUR ---
RADIOLOGY HERE FOR CXR.
--- NOTE | 2022-08-18 11:50 | NUR ---
Placement of OG tube verified via CXR and air bolus. Feeding resumed at prescribed rate. will continue to monitor.
--- NOTE | 2022-08-18 12:04 | NUR ---
NOTIFIED OF MAGNESIUM LVL OF 1.7. NEW ORDERS GIVEN. SEE ORDERS FOR DETAIL. ORDERS NOTED AND CARRIED OUT.
[2022-08-18] MEDS ORDERED: MAG SULF 2000 MG/WATER PREMIX 50 ML IV SCH (13:37)
--- NOTE | 2022-08-18 14:57 | NUR ---
here to see pt. No new orders at this time.
--- NOTE | 2022-08-18 15:05 | NUR ---
Pt moved to bariatric bed with assistance of x5 nurses and x2 RT. Currently resting in bed. Vital signs stable.
[2022-08-18] MEDS: fentaNYL citrate - 50mL vial 2.5 MG in NACL 0.9% 200 ML IV PRN (17:35)
--- NOTE | 2022-08-18 20:34 | NUR ---
RECEIVED REPORT FROM DAY SHIFT RN. PATIENT IS YAMILETH WITH VENT AND VASOPROSSORS. HIS PRIOPFOR RATE AT 30MCG, fENTANYL 1,5MCG, PRECEDEX 0.2MCG, LEVOPHED 10MCG/MIN, OG TUBE FEEDING AT 60ML/HR, FWF 150 Q 6 HOURS. PATIENT APEARS CONFORTABAL WITH CURRENT SETTING, VENT SETTING PER RT. Addendum: 08/18/22 at 2046 by [facility] RN CHAT ON WRONG PATIENT
--- NOTE | 2022-08-18 20:48 | NUR ---
RECEIVED REPORT. THE PATIENT ON VENT AND SEDATION SETING : PROP: 15MCG, LEVOPHED, 4 MCG, FENTANYL 0.5, RABIA FAILL CPAP TODAY. OG TUBE FEEDING. GLUCERNA AT 65ML/HR, DIARRHEA,BLAISE SAMPLE SENT FOR R/O C-DIFF; FLEXL IN PLACE, CONTINUE ANTIBIOTIC, VENT, AND VASOPRESORS TREATMENT., BIATRIC BED IN PLACE TO PREVENT PRESURE ULCERS.
[2022-08-19] VITALS (27 sets, daily range): BP systolic 86–149; BP diastolic 60–105
[2022-08-19] MEDS: PROPOFOL 1000 MG/100 ML PREMIX 100 ML IV PRN ×4 (02:04→21:45)
[2022-08-19 05:32] LABS: BASOPHILS # (AUTO) 0.2 K/uL (0.00-0.22); EOSINOPHILS # (AUTO) 0.4 K/uL (0-0.4); EOSINOPHILS % (AUTO) 2.7 % (0.0-4.0); HEMATOCRIT 39.2 % (36-48); HEMOGLOBIN 12.6 g/dL (12.0-16.0); LYMPHOCYTES # (AUTO) 2.5 K/uL (2.5-16.5); LYMPHOCYTES % (AUTO) 15.7 % (20.5-51.1); MEAN CORPUSCULAR HEMOGLOBIN 28 pg (27-31); MEAN CORPUSCULAR HGB CONC 32 g/dL (33-37); MEAN CORPUSCULAR VOLUME 85.8 fL (80-94); MONOCYTES # (AUTO) 2.4 K/uL (0.8-1.0); MONOCYTES % (AUTO) 14.9 % (1.7-9.3); NEUTROPHILS # (AUTO) 10.6 K/uL (1.8-7.7); NEUTROPHILS % (AUTO) 65.7 % (42.2-75.2); PLATELET COUNT (AUTO) 230 K/uL (140-450); RED BLOOD CELL COUNT(AUTO) 4.57 MIL/uL (4.20-5.40); RED CELL DISTRIBUTION WIDTH 15.8 % (11.6-13.7); WHITE BLOOD COUNT (AUTO) 16.1 K/uL (4.8-10.8)
[2022-08-19] MEDS: BLOOD GLUCOSE MONITORING 1 DEV DEV FS SCH ×3 (05:47→18:00)
[2022-08-19] MEDS: PIPERACILLIN/TAZOBACTAM 3.375 GM in DEXTROSE 5% 50 ML IV SCH ×3 (05:49→17:59)
[2022-08-19] MEDS: INSULIN LISPRO SLIDING SCALE 100 UNITS/ML VIAL SUBQ PRN ×3 (05:50→18:01)
[2022-08-19 06:50] LABS: ALBUMIN 2.9 g/dL (3.4-5.0); ANION GAP 14.9 (8-16); CARBON DIOXIDE 27.9 mmol/L (21-32); CREATININE 1.1 mg/dL (0.6-1.3); MAGNESIUM 1.7 mg/dL (1.8-2.4); POTASSIUM 3.8 mmol/L (3.5-5.1); TOTAL BILIRUBIN 0.9 mg/dL (0.0-1.0)
--- NOTE | 2022-08-19 07:29 | NUR ---
VSS, PATIENT WAS AGITATED AT BEGINING OF THE SHIFT, INCREASED PROPOFOL TO 20MCG, SHE STARTS TO CALM DOWN AND QUIET SLEEPING AFTERWARDS.
--- NOTE | 2022-08-19 08:22 | NUR ---
Report received from night RN, patient laying in bed on ventilator. Patient vital signs stable. Fentanyl drip titrated from 0.5 mcg/kg/hr to 1 mcg/kg/hr (120mcg/hr) per order due to increased pain. Ok to titrate up to Max of 200 mcg/hr per Joe, Pharmacist.
[2022-08-19] MEDS: FUROSEMIDE 40 MG/4 ML VIAL IVP SCH ×2 (09:01→17:59)
[2022-08-19] MEDS: PANTOPRAZOLE 40 MG INJ VIAL IVP SCH (09:01)
[2022-08-19] MEDS ORDERED: KCL 20 MEQ IN 100 mL PREMIX 100 ML IV ONE (12:55)
[2022-08-19] MEDS ORDERED: MAG SULF 2000 MG/WATER PREMIX 50 ML IV SCH (13:30)
[2022-08-19] MEDS ORDERED: POTASSIUM CHLORIDE 20% 40 MEQ/15 ML UDC GT SCH (13:30)
--- NOTE | 2022-08-19 16:00 | NUR ---
08/19/22 RD FOLLOW UP COMPLETED PLEASE REFER TO NUTRITION ASSESSMENT UNDER CARE ACTIVITY FOR ESTIMATED NUTRITIONAL NEEDS. 1. CONTINUE WITH GLUCERNA 1.2 @65 ML/HR, FWF 100 ML Q6H -WITH PROPOFOL @ 15.2 ML/HR (PROVIDES 401 KCAL/DAY), WILL PROVIDE 1560 ML VOLUME, 2273 KCAL, AND 94 GRAMS OF PROTEIN, 1656 ML FREE WATER, MEETING 100% OF ESTIMATED KCAL AND 78% OF ESTIMATED PROTEIN NEEDS; ADEQUATE. 2. RECOMMEND BANATROL TID FOR DIARRHEA UNTIL SYMPTOMS RESOLVED 3. MONITOR GI SYMPTOMS, GASTRIC RESIDUALS, AND NUTRITION RELATED LAB VALUES 4. CONSULT RD PRN 5. RD TO FOLLOW-UP 2-3 DAYS, HIGH RISK REVIEWED BY KANU BEATTY RD
--- NOTE | 2022-08-19 16:53 | NUR ---
Per Case Management, patient information and status updates to be disclosed only to Son, Niki Martinez and his partner Cindy . Decision making and bedside visitors to be decided by patient's son, Niki Martinez. All other family members seeking information are to contact Niki Martinez.
[2022-08-19] MEDS: QUEtiapine FUMARATE 25 MG TAB NG SCH (21:34)
[2022-08-20] VITALS (27 sets, daily range): BP systolic 85–107; BP diastolic 52–72
--- NOTE | 2022-08-20 | NUR ---
REPORT RECEIVED FROM OFF-GOING RN FOR CONTINUITY OF CARE FOR THIS PATIENT. PT IS ORALLY INTUBATED ON THE VENTILATOR. HER VENT SETTINGS ARE AC/VC FIO2 40%, TV 500, RATE 24 AND PEEP 5SHE IS TOLERATING TH VENT WETTING WELL. SHE ALSO HAVE A ORAL GASTRIC TUBE IN PLACE WITH 120 CC OF RESIDUAL. FOOD WAS TURNED OFF FOR 2 HOURS AFTER RECHECKING THE RESIDUAL IF LOW TO NO RESIDUAL. PT HAS GLUCERNA 1.2 @ 65CC'S PER HOUR AND FREE H20 100 Q 6HOUR.HER IV ACCESS IS EMELY PICC LINE INFUSING FENTANYL, PROPOFOL, AND LEVOPHED. SHE HAS A TKO FOR IVPB INFUSION.. PT HAS A ROBLES CATH AND A RECTAL BAG IN PLACE BOTH HAVE A SMALL AMOUNT OF SECRETIONS SHE HAS UNBROKEN BLISRTERS ON THE RIGHT ARM WITH DRSG IN PLACE. PT AWAKEN AND BEGAN THRASHING ABOUT THE BED AND HER BLOOD PRESSURE IS MARGINAL.
[2022-08-20] MEDS: BLOOD GLUCOSE MONITORING 1 DEV DEV FS SCH ×4 (00:11→18:02)
[2022-08-20] MEDS: INSULIN LISPRO SLIDING SCALE 100 UNITS/ML VIAL SUBQ PRN ×4 (00:15→18:03)
[2022-08-20] MEDS: PIPERACILLIN/TAZOBACTAM 3.375 GM in DEXTROSE 5% 50 ML IV SCH ×4 (00:17→17:14)
[2022-08-20] MEDS: fentaNYL citrate - 50mL vial 2.5 MG in NACL 0.9% 200 ML IV PRN (00:22)
[2022-08-20] MEDS: PROPOFOL 1000 MG/100 ML PREMIX 100 ML IV PRN ×4 (01:33→21:06)
--- NOTE | 2022-08-20 07:00 | NUR ---
RECEIVED PT ON ACVC F24,500,+5,45%. VENT WHEELS ARE LOCKED, PLUGGED INTO RED OUTLET, AMBUBAG AT BEDSIDE, ALARMS ARE SET AND AUDIBLE. ETT 7.5@24. SATURATION 96%. CLEAR/DIMINISHED BREATH SOUNDS. DAILY CPAP SCHEDULED FOR THIS MORNING. WILL CONTINUE TO MONITOR.
--- NOTE | 2022-08-20 07:10 | NUR ---
RECEIVED BEDSIDE REPORT FORM SUPERVISOR ELECTRIC RN FOR CONTINUITY OF CARE. PT OPENS EYES TO VOICE, SEDATED ON PROPOFOL AND FENTANYL. ETT TO VENT AC/VC 45%/VT 500/RR 24/PEEP 5. SR ON MONITOR. PICC TO EMELY INFUSING FENTANYL AT 1 MCG/KG/HR, PROPOFOL AT 25 MCG/KG/MIN, LEVOPHED AT 4 MCG/MIN, AND NS TKO. OGT IN PLACE WITH GLUCERNA TUBE FEEDING AT 65 ML/HR FWF 100 Q6H. F/C TO GRAVITY PATENT INTACT. FLEXI-SEAL IN PLACE DRAINING LIQUID BROWN STOOL. BILATERAL WRIST RESTRAINTS IN PLACE FOR SAFETY, NO S/SX OF INJURY. BLEACH CONTACT PRECAUTIONS IN PLACE FOR POSSIBLE CDIFF INFECTION, CULTURE PENDING. BED LOCKED AND IN LOWEST POSITION.
[2022-08-20] MEDS: FUROSEMIDE 40 MG/4 ML VIAL IVP SCH ×2 (08:03→17:14)
[2022-08-20] MEDS: QUEtiapine FUMARATE 25 MG TAB NG SCH ×2 (08:03→17:13)
[2022-08-20] MEDS: PANTOPRAZOLE 40 MG INJ VIAL IVP SCH (08:03)
[2022-08-20 08:35] LABS: BASOPHILS # (AUTO) 0.1 K/uL (0.00-0.22); BASOPHILS % (AUTO) 0.6 % (0.0-2.0); EOSINOPHILS # (AUTO) 0.9 K/uL (0-0.4); EOSINOPHILS % (AUTO) 4.5 % (0.0-4.0); HEMATOCRIT 40.4 % (36-48); HEMOGLOBIN 12.6 g/dL (12.0-16.0); LYMPHOCYTES # (AUTO) 3.6 K/uL (2.5-16.5); LYMPHOCYTES % (AUTO) 18.1 % (20.5-51.1); MEAN CORPUSCULAR HEMOGLOBIN 27 pg (27-31); MEAN CORPUSCULAR HGB CONC 31 g/dL (33-37); MEAN CORPUSCULAR VOLUME 86.9 fL (80-94); MONOCYTES # (AUTO) 3.1 K/uL (0.8-1.0); MONOCYTES % (AUTO) 15.6 % (1.7-9.3); NEUTROPHILS # (AUTO) 12.1 K/uL (1.8-7.7); NEUTROPHILS % (AUTO) 61.2 % (42.2-75.2); PLATELET COUNT (AUTO) 245 K/uL (140-450); RED BLOOD CELL COUNT(AUTO) 4.65 MIL/uL (4.20-5.40)
[2022-08-20 08:56] LABS: WHITE BLOOD COUNT (AUTO) 19.8 K/uL (4.8-10.8)
[2022-08-20 08:57] LABS: ALBUMIN 2.7 g/dL (3.4-5.0); ANION GAP 16.2 (8-16); CREATININE 1.1 mg/dL (0.6-1.3); POTASSIUM 4.2 mmol/L (3.5-5.1); TOTAL BILIRUBIN 0.7 mg/dL (0.0-1.0)
--- NOTE | 2022-08-20 10:50 | NUR ---
STARTED CPAP TRAIL AT 12/5 BUT HER ANXIETY WAS ELEVATED. ADDED 3 TO THE PRESSURE SUPPORT (15/5) AT 1030. PT LASTED FOR 20MIN BEFORE RESPIRATORY RATE ELEVATED TO ABOVE 40BPM. FOR PT SAFETY, AND COMFORT, SHE WAS PUT BACK ON FULL VENT SUPPORT OF ACVC 24,TV500,+5, 45%. WILL CONTINUE TO MONITOR.
[2022-08-20] MEDS: DEXMEDETOMIDINE HCL 400 MCG in NACL 0.9% 96 ML IV PRN ×2 (13:48→20:56)
--- NOTE | 2022-08-20 17:00 | NUR ---
SON VISITING AT BEDSIDE. ALL QUESTIONS ANSWERED.
--- NOTE | 2022-08-20 18:58 | NUR ---
RECEIVED REPORT FROM AM SHIFT. PATIENT WAS SEEN AND ASSESSED. PATIENT IS INTUBATED WITH ETT SIZE 7.5 AND SECURED WITH A BITING BLOCK ANCHOR-FAST 24cm @ TEETH. PATIENT IS ON VENTILATOR SUPPORT. VENTILATOR PLUGGED IN RED OUTLET. VENTILATOR ALARMS SET APPROPRIATELY AND AUDIBLE TO ENVIRONMENT. AMBU BAG AT BEDSIDE. HEAD OF BED GREATER THAN 30 DEGREES. NOTICED ADEQUATE BILATERAL CHEST RISE AND FALL. PATIENT IS IN NO RESPIRATORY DISTRESS AT THIS TIME. VENT SETTINGS: AC/PRVC RR 24, TARGETED Vt 500, PEEP 5, FiO2 40% WITH SPO2 OF 88%. TITRATED FiO2 TO 45%. SPO2 IMPROVED TO 92%. BILATERAL BREATH SOUNDS ON AUSCULTATION; UPPER LOBES: COARSE LOWER LOBES: COARSE
--- NOTE | 2022-08-20 19:02 | NUR ---
ENDORSED BEDSIDE REPORT TO NANY MERCHANDISE COLLECTOR RIFFLER TENDER, FOR CONTINUITY OF CARE.
[2022-08-21] VITALS (30 sets, daily range): BP systolic 93–126; BP diastolic 53–94
[2022-08-21] MEDS: BLOOD GLUCOSE MONITORING 1 DEV DEV FS SCH ×4 (00:23→17:46)
[2022-08-21] MEDS: PIPERACILLIN/TAZOBACTAM 3.375 GM in DEXTROSE 5% 50 ML IV SCH ×2 (00:24→05:40)
[2022-08-21] MEDS: INSULIN LISPRO SLIDING SCALE 100 UNITS/ML VIAL SUBQ PRN ×4 (00:26→17:52)
[2022-08-21] MEDS: fentaNYL citrate - 50mL vial 2.5 MG in NACL 0.9% 200 ML IV PRN ×2 (01:02→07:28)
[2022-08-21] MEDS: DEXMEDETOMIDINE HCL 400 MCG in NACL 0.9% 96 ML IV PRN ×4 (02:05→20:44)
[2022-08-21] MEDS ORDERED: fentaNYL citrate 0.05 MG/ML VIAL ONE (04:47)
[2022-08-21] MEDS: PROPOFOL 1000 MG/100 ML PREMIX 100 ML IV PRN ×3 (04:57→23:16)
--- NOTE | 2022-08-21 07:15 | NUR ---
RECEIVED BEDSIDE REPORT FROM MAINTENANCE CRAFTSMAN NANY SKAGGS FOR CONTINUITY OF CARE. PT OPENS EYES TO VOICE, SEDATED ON PROPOFOL AND FENTANYL. ETT TO VENT AC/VC 45%/VT 500/RR 24/PEEP 5. SR ON MONITOR. PICC TO EMELY INFUSING FENTANYL AT 0.5 MCG/KG/HR, PROPOFOL AT 21 MCG/KG/MIN, LEVOPHED AT 2 MCG/MIN, PRECEDEX @0.5 MCG/KG/H, AND NS TKO. OGT IN PLACE WITH GLUCERNA TUBE FEEDING AT 65 ML/HR FWF 100 Q6H. F/C TO GRAVITY PATENT INTACT. FLEXI-SEAL IN PLACE DRAINING LIQUID BROWN STOOL. BILATERAL WRIST RESTRAINTS IN PLACE FOR SAFETY, NO S/SX OF INJURY. BLEACH CONTACT PRECAUTIONS IN PLACE FOR POSSIBLE CDIFF INFECTION, CULTURE PENDING. BED LOCKED AND IN LOWEST POSITION.
[2022-08-21] MEDS: QUEtiapine FUMARATE 25 MG TAB NG SCH ×2 (08:35→17:29)
[2022-08-21] MEDS: PANTOPRAZOLE 40 MG INJ VIAL IVP SCH (08:35)
[2022-08-21] MEDS: FUROSEMIDE 40 MG/4 ML VIAL IVP SCH ×2 (08:36→17:29)
[2022-08-21 08:51] LABS: BASOPHILS # (AUTO) 0.1 K/uL (0.00-0.22); BASOPHILS % (AUTO) 0.8 % (0.0-2.0); EOSINOPHILS # (AUTO) 0.8 K/uL (0-0.4); EOSINOPHILS % (AUTO) 5.9 % (0.0-4.0); HEMATOCRIT 39.3 % (36-48); HEMOGLOBIN 12.6 g/dL (12.0-16.0); LYMPHOCYTES % (AUTO) 15.1 % (20.5-51.1); MEAN CORPUSCULAR HEMOGLOBIN 28 pg (27-31); MEAN CORPUSCULAR HGB CONC 32 g/dL (33-37); MEAN CORPUSCULAR VOLUME 85.4 fL (80-94); MONOCYTES # (AUTO) 1.5 K/uL (0.8-1.0); MONOCYTES % (AUTO) 11.2 % (1.7-9.3); NEUTROPHILS # (AUTO) 8.7 K/uL (1.8-7.7); PLATELET COUNT (AUTO) 278 K/uL (140-450); RED CELL DISTRIBUTION WIDTH 15.5 % (11.6-13.7)
[2022-08-21 09:10] LABS: MAGNESIUM 1.6 mg/dL (1.8-2.4); PHOSPHORUS 3.9 mg/dL (2.5-4.9)
--- NOTE | 2022-08-21 09:10 | NUR ---
DR FIGUEROA ROUNDING AT BEDSIDE. UPDATED PT INFORMATION.
[2022-08-21 09:24] LABS: CARBON DIOXIDE 26.2 mmol/L (21-32); CREATININE 1.2 mg/dL (0.6-1.3); POTASSIUM 3.2 mmol/L (3.5-5.1)
[2022-08-21] MEDS: NOREPINEPHRINE 16 MG in DEXTROSE 5% 250 ML IV PRN (09:25)
--- NOTE | 2022-08-21 10:20 | NUR ---
DR TACO RAMÍREZ AT BEDSIDE. UPDATED PT INFORMATION.
--- NOTE | 2022-08-21 10:20 | NUR ---
REPORTED TO DR FIGUEROA REGARDING PT K 3.2, MAG 1.6. ORDERED MAGOX 400MG DAILY G TUBE.
[2022-08-21] MEDS ORDERED: MAG SULF 2000 MG/WATER PREMIX 50 ML IV SCH (10:30)
[2022-08-21] MEDS ORDERED: POTASSIUM CHLORIDE 20% 40 MEQ/15 ML UDC GT SCH (10:45)
[2022-08-21] MEDS ORDERED: NOREPINEPHRINE IV PRN (11:09)
[2022-08-21] MEDS ORDERED: NACL 0.9% IV PRN (11:09)
--- NOTE | 2022-08-21 11:33 | NUR ---
PT PLACED ON SBT TRIAL AT 1110, ALARMS SET AND AUDIBLE TO NURSE STATION. PT AIRWAY IS PATENT AND SECURE BY TUBE HERNDON. VENT WHEELS LOCKED AND IS PLUGGED INTO RED OUTLET WITH AMBU BAG AT BEDSIDE. WILL CONTINUE TO MONITOR AND CONTINUE WEANING TRIALS PER MD HASKINS.
--- NOTE | 2022-08-21 11:55 | NUR ---
PT BACK ON VENT SETTINGS AC24 500 +5 40%.
--- NOTE | 2022-08-21 12:09 | NUR ---
DR HASKINS ROUNDMASON AT BEDSIDE. UPDATED PT INFORMATION. ORDER TO CONTINUE THE CPAP DAILY.
[2022-08-21] MEDS: PIPERACILLIN/TAZOBACTAM 3.375 GM in NACL 0.9% 50 ML IV SCH ×2 (12:18→17:29)
--- NOTE | 2022-08-21 14:58 | NUR ---
08/21/22 RD FOLLOW UP COMPLETED PLEASE REFER TO NUTRITION ASSESSMENT UNDER CARE ACTIVITY FOR ESTIMATED NUTRITIONAL NEEDS. 1. CONTINUE WITH GLUCERNA 1.2 @65 ML/HR, FWF 100 ML Q6H, BANATROL TID FOR DIARRHEA UNTIL SYMPTOMS RESOLVED -WITH PROPOFOL @ 11.4 ML/HR (PROVIDES 300 KCAL/DAY), WILL PROVIDE 1560 ML VOLUME, 2172 KCAL, AND 94 GRAMS OF PROTEIN, 1656 ML FREE WATER, MEETING 100% OF ESTIMATED KCAL AND 80% OF ESTIMATED PROTEIN NEEDS; ADEQUATE. 2. CONSIDER SWITCHING TUBE FEEDING FORMULA TO VITAL AF 1.2 @ 65 ML/HR GOAL RATE IF DIARRHEA PERSISTS -START @ 20 ML, INCREASE BY 20 ML Q4H UNTIL GOAL IS REACHED TOLERATED 3. MONITOR GI SYMPTOMS, GASTRIC RESIDUALS, AND NUTRITION RELATED LAB VALUES 4. CONSULT RD PRN 5. RD TO FOLLOW-UP 2-3 DAYS, HIGH RISK REVIEWED BY KANU BEATTY RD
--- NOTE | 2022-08-21 19:13 | NUR ---
ENDORSED TO BARREL LOADER AND CLEANER ARIE RN FOR CONTINUITY OF CARE. ALL QUESTION ANSWERED.
[2022-08-22] VITALS (30 sets, daily range): BP systolic 82–142; BP diastolic 55–95
[2022-08-22] MEDS: PIPERACILLIN/TAZOBACTAM 3.375 GM in NACL 0.9% 50 ML IV SCH ×5 (00:26→23:03)
[2022-08-22] MEDS: INSULIN LISPRO SLIDING SCALE 100 UNITS/ML VIAL SUBQ PRN ×5 (00:35→23:17)
[2022-08-22] MEDS: BLOOD GLUCOSE MONITORING 1 DEV DEV FS SCH ×5 (00:42→23:14)
[2022-08-22] MEDS: DEXMEDETOMIDINE HCL 400 MCG in NACL 0.9% 96 ML IV PRN ×6 (02:38→21:59)
[2022-08-22] MEDS: PROPOFOL 1000 MG/100 ML PREMIX 100 ML IV PRN ×2 (06:40→20:10)
--- NOTE | 2022-08-22 07:00 | NUR ---
SBT TRAIL ON PT (03/11). SHE LASTED ABOUT 20 MIN BEFORE VENT TRIGGERED TO PREVIOUS VENT SETTING ON ACVC 500,F24, +5, 45%. VOLUMES AT THAT TIME WERE 450- 550. PT WAS AGITATED AND BECAME TACHYPNEIC. WILL TRY AGAIN LATER.
--- NOTE | 2022-08-22 07:00 | NUR ---
RECEIVED PT ON ACVC 500,F24,+5,45%. VENT WHEELS ARE LOCKED, PLUGGED INTO RED OUTLET, AMBUBAG AT BEDSIDE, ALARMS ARE SET AND AUDIBLE TO THE NURSES STATION. BREATH SOUNDS WERE CLEAR WITH CRACKLES AT THE BASES. SATURATION 92%. SBT TRAIL NOW. WILL CONTINUE TO MONITOR.
--- NOTE | 2022-08-22 07:15 | NUR ---
RECEIVED BEDSIDE REPORT FROM SPARERIBS TRIMMER ARIE RN FOR CONTINUITY OF CARE. PT OPENS EYES TO VOICE, SEDATED. ETT TO VENT AC/VC 30%/VT 500/RR 24/PEEP 5. SB ON MONITOR. PICC TO EMELY INFUSING PROPOFOL AT 8 MCG/KG/MIN, LEVOPHED AT 1 MCG/MIN, PRECEDEX @ 1 MCG/KG/H, AND NS TKO. OGT IN PLACE WITH GLUCERNA TUBE FEEDING AT 65 ML/HR FWF 100 Q6H. F/C TO GRAVITY PATENT INTACT. FLEXI-SEAL IN PLACE DRAINING LIQUID BROWN STOOL. BILATERAL WRIST RESTRAINTS IN PLACE FOR SAFETY, NO S/SX OF INJURY. BLEACH CONTACT PRECAUTIONS IN PLACE FOR POSSIBLE C DIFF INFECTION, CULTURE PENDING. BED LOCKED AND IN LOWEST POSITION.
[2022-08-22 07:42] LABS: BASOPHILS # (AUTO) 0.1 K/uL (0.00-0.22); EOSINOPHILS # (AUTO) 0.8 K/uL (0-0.4); EOSINOPHILS % (AUTO) 5.9 % (0.0-4.0); HEMOGLOBIN 12.8 g/dL (12.0-16.0); LYMPHOCYTES # (AUTO) 1.9 K/uL (2.5-16.5); LYMPHOCYTES % (AUTO) 14.1 % (20.5-51.1); MEAN CORPUSCULAR HEMOGLOBIN 27 pg (27-31); MEAN CORPUSCULAR HGB CONC 32 g/dL (33-37); MEAN CORPUSCULAR VOLUME 85.3 fL (80-94); MONOCYTES # (AUTO) 1.3 K/uL (0.8-1.0); MONOCYTES % (AUTO) 9.4 % (1.7-9.3); NEUTROPHILS # (AUTO) 9.3 K/uL (1.8-7.7); NEUTROPHILS % (AUTO) 69.6 % (42.2-75.2); PLATELET COUNT (AUTO) 269 K/uL (140-450); RED BLOOD CELL COUNT(AUTO) 4.68 MIL/uL (4.20-5.40); RED CELL DISTRIBUTION WIDTH 15.7 % (11.6-13.7); WHITE BLOOD COUNT (AUTO) 13.3 K/uL (4.8-10.8)
[2022-08-22 07:55] LABS: ANION GAP 14.3 (8-16); CARBON DIOXIDE 26.3 mmol/L (21-32); CREATININE 1.2 mg/dL (0.6-1.3); POTASSIUM 3.6 mmol/L (3.5-5.1)
[2022-08-22 08:00] LABS: MAGNESIUM 1.8 mg/dL (1.8-2.4); PHOSPHORUS 3.8 mg/dL (2.5-4.9)
[2022-08-22] MEDS: QUEtiapine FUMARATE 25 MG TAB NG SCH ×2 (08:26→16:36)
[2022-08-22] MEDS: PANTOPRAZOLE 40 MG INJ VIAL IVP SCH (08:26)
[2022-08-22] MEDS: FUROSEMIDE 40 MG/4 ML VIAL IVP SCH ×2 (08:27→16:36)
[2022-08-22] MEDS: MAGNESIUM OXIDE 400 MG TAB GT SCH (08:28)
[2022-08-22] MEDS: COMMUNICATION ORDER MC SCH (09:07)
--- NOTE | 2022-08-22 09:10 | NUR ---
DR FIGUEROA ROUNDING AT BEDSIDE. UPDATED PT INFORMATION.
--- NOTE | 2022-08-22 09:35 | NUR ---
DR HASKINS ROUNDMASON AT BEDSIDE. UPDATED PT INFORMATION.
--- NOTE | 2022-08-22 12:54 | NUR ---
MC/АЛЕКСАНДР AT BEDSIDE. UPDATED PT INFORMATION.
--- NOTE | 2022-08-22 13:00 | NUR ---
DR STRANGE ROUNDMASON AT BEDSIDE. UPDATED PT INFORMATION.
--- NOTE | 2022-08-22 13:56 | NUR ---
RECEIVED PT ON AC 24 500 +5 45%, 7.5 @ 24cm @TEETH. PT ROUTINE VENTILATOR CHECK PERFORMED. PT AIRWAY IS PATENT AND SECURE WITH TUBE HERNDON. VENTILATOR WHEELS ARE LOCKED AND VENTILATOR IS PLUGGED INTO RED OUTLET. ALARMS ARE SET AND AUDIBLE TO NURSE STATION. NO COMPLICATIONS NOTED AT THIS TIME. WILL CONTINUE TO MONITOR PT.
--- NOTE | 2022-08-22 14:10 | NUR ---
FAMILY/DAUGHTER IN LAW/RASHEL AT BEDSIDE. UPDATED PT INFORMATION.
--- NOTE | 2022-08-22 16:10 | NUR ---
WOUND CARE RE-EVALUATION NOTE: NO NEW SKIN BREAKS/BLISTERING SKIN NOTICE, MOIST SKIN MULTIPLE BRUISES. POC DISCUSSED WITH CHARGE NURSE AMARILIS PT. AT HI RISK FOR PRESSURE INJURY , CONTINUE TO FOLLOW PREVENTION INTERVENTIONS.
--- NOTE | 2022-08-22 19:22 | NUR ---
ENDORSED TO ALCOHOL AND DRUG COUNSELOR ODILIA RN FOR CONTIGUITY OF CARE, ALL QUESTIONS ANSWERED.
--- NOTE | 2022-08-22 20:00 | NUR ---
ASSUMED CARE OF THIS PATIENT AND ASSESSMENT DONE AND COMPLETED.AFEBRILE.SB ON THE MONITOR HR 53.SEDATED ON PROPOFOL 10MCG AND PRECEDEX AT 1MCG.ON VENTILATOR WITH SETTINGS AC/PRVC 18,TV 500,FIO2 35% PEEP 5.O2 SAT AT 93%.LUNG SOUNDS WITH RHONCHI THROUGHOUT.ABDOMEN OBESE WITH +BSX4 QUADS .GLUCERNA TUBE FEEDING INFUSING WELL VIA PUMP AND TOLERATING WELL .ROBLES DRAINING ADEQUATE AMOUNT OF URINE.PULSES PRESENT AND PALPABLE REMAINS ON RESTRAINTS TO PREVENT FROM ANY INJURY.STILL ASYMPTOMATIC OF PAIN AND DISCOMFORT.WILL CONTINUE WITH CARE.
[2022-08-23] VITALS (28 sets, daily range): BP systolic 84–162; BP diastolic 53–97
[2022-08-23 00:28] LABS: ANION GAP 14.1 (8-16); CARBON DIOXIDE 27.4 mmol/L (21-32); CREATININE 1.3 mg/dL (0.6-1.3); POTASSIUM 3.5 mmol/L (3.5-5.1)
[2022-08-23] MEDS: DEXMEDETOMIDINE HCL 400 MCG in NACL 0.9% 96 ML IV PRN ×8 (01:15→22:08)
[2022-08-23] MEDS: BLOOD GLUCOSE MONITORING 1 DEV DEV FS SCH ×4 (05:13→23:14)
[2022-08-23] MEDS: PIPERACILLIN/TAZOBACTAM 3.375 GM in NACL 0.9% 50 ML IV SCH ×4 (05:14→23:15)
[2022-08-23] MEDS: INSULIN LISPRO SLIDING SCALE 100 UNITS/ML VIAL SUBQ PRN ×4 (05:15→23:17)
[2022-08-23] MEDS: PROPOFOL 1000 MG/100 ML PREMIX 100 ML IV PRN (05:45)
--- NOTE | 2022-08-23 07:00 | NUR ---
RECEIVED PT ON ACVC 500, F18,+5,28%. VENT WHEELS ARE LOCKED, PLUGGED INTO RED OUTLET, ALARMS ARE SET AND AUDIBLE, AMBUBAG AT BEDSIDE. BREATHING TRIAL TO START SOON. WILL CONTINUE TO MONITOR.
--- NOTE | 2022-08-23 07:00 | NUR ---
ENDORSED TO DAY SHIFT RN,[place] FOR CONTINUITY OF CARE.
--- NOTE | 2022-08-23 07:25 | NUR ---
SBAR REPORT RECEIVED FROM ODILIA RN, ALL CARES ASSUMED. PT INTUBATED SEDATED, VENT SETTINGS: AC PRVC 18, 500, 28%, 5. ROBLES CATHETER DRAINING TO GRAVITY. TUBE FEEDING INFUSING TO OGT.
--- NOTE | 2022-08-23 08:36 | NUR ---
30 MINUTES SBT WENT WELL. VOLUMES WERE 500-700.SATURATION 94%. BLOOD PRESSURE WAS STABLE. HEART RATE IN THE 60S. CONTINUED SBT FOR ANOTHER 45 MINUTES. WILL CONTINUE TO MONITOR.
[2022-08-23] MEDS: QUEtiapine FUMARATE 25 MG TAB NG SCH ×2 (09:41→17:47)
[2022-08-23] MEDS: PANTOPRAZOLE 40 MG INJ VIAL IVP SCH (09:42)
[2022-08-23] MEDS: FUROSEMIDE 40 MG/4 ML VIAL IVP SCH ×2 (09:42→17:47)
[2022-08-23] MEDS: MAGNESIUM OXIDE 400 MG TAB GT SCH (09:42)
[2022-08-23 09:44] LABS: BASOPHILS # (AUTO) 0.2 K/uL (0.00-0.22); BASOPHILS % (AUTO) 1.2 % (0.0-2.0); EOSINOPHILS # (AUTO) 0.8 K/uL (0-0.4); EOSINOPHILS % (AUTO) 6.1 % (0.0-4.0); HEMOGLOBIN 13.8 g/dL (12.0-16.0); LYMPHOCYTES # (AUTO) 2.8 K/uL (2.5-16.5); LYMPHOCYTES % (AUTO) 20.6 % (20.5-51.1); MEAN CORPUSCULAR HEMOGLOBIN 27 pg (27-31); MEAN CORPUSCULAR HGB CONC 31 g/dL (33-37); MEAN CORPUSCULAR VOLUME 87.1 fL (80-94); MONOCYTES # (AUTO) 1.4 K/uL (0.8-1.0); MONOCYTES % (AUTO) 10.6 % (1.7-9.3); NEUTROPHILS # (AUTO) 8.2 K/uL (1.8-7.7); NEUTROPHILS % (AUTO) 61.5 % (42.2-75.2); PLATELET COUNT (AUTO) 277 K/uL (140-450); RED BLOOD CELL COUNT(AUTO) 5.05 MIL/uL (4.20-5.40); RED CELL DISTRIBUTION WIDTH 15.7 % (11.6-13.7); WHITE BLOOD COUNT (AUTO) 13.4 K/uL (4.8-10.8)
[2022-08-23] MEDS: COMMUNICATION ORDER MC SCH (09:48)
[2022-08-23 10:03] LABS: ANION GAP 12.9 (8-16); CREATININE 1.2 mg/dL (0.6-1.3); POTASSIUM 3.9 mmol/L (3.5-5.1)
[2022-08-23 10:07] LABS: MAGNESIUM 1.7 mg/dL (1.8-2.4); PHOSPHORUS 4.8 mg/dL (2.5-4.9)
--- NOTE | 2022-08-23 11:09 | NUR ---
SBT WENT WELL FOR PT. STARTED AT 15/5 THEN LOWERED TO 12/5. RSBI IN THE 60S. LASTED 90 TOTAL MINUTES. VOLUME RANGE 400-650. BLOOD PRESSURE WAS STABLE, HEART RATE IN THE 60S. SATURATION 92%. PER DR. HASKINS REPEAT SBT TOMORROW MORNING.
--- NOTE | 2022-08-23 13:05 | NUR ---
08/23/22 RD FOLLOW UP COMPLETED PLEASE REFER TO NUTRITION ASSESSMENT UNDER CARE ACTIVITY FOR ESTIMATED NUTRITIONAL NEEDS. 1. CONTINUE WITH GLUCERNA 1.2 @65 ML/HR, FWF 100 ML Q6H, BANATROL TID FOR DIARRHEA UNTIL SYMPTOMS RESOLVED -WILL PROVIDE 1560 ML VOLUME, 1872 KCAL, AND 94 GRAMS OF PROTEIN, 1656 ML FREE WATER, MEETING 90% OF ESTIMATED KCAL AND 80% OF ESTIMATED PROTEIN NEEDS; ADEQUATE. -MONITOR CALORIES IN PROPOFOL 2. MONITOR GI SYMPTOMS, GASTRIC RESIDUALS, AND NUTRITION RELATED LAB VALUES 3. CONSULT RD PRN 4. RD TO FOLLOW-UP 2-3 DAYS, HIGH RISK KANU BEATTY RD
--- NOTE | 2022-08-23 18:10 | NUR ---
PT CONTINUES TO HAVE LOW HEART RATE 40's-50's. TELEPHONE ORDERS FROM DR RIVERA TO SWITCH LEVOPHED TO DOPAMINE AND TITRATE TO HR> 60bpm.
[2022-08-23] MEDS: DOPamine 400 MG/D5W PREMIX 250 ML IV PRN (19:20)
--- NOTE | 2022-08-23 20:00 | NUR ---
RECEIVED PATIENT SEDATED ON PRECEDEX 1.1MCG.OPEN EYES BUT DOES NOT FOLLOW ANY COMMANDS.AFEBRILE.ASYMPTOMATIC OF ANY PAIN AND DISCOMFORT.SB AND SR ON THE MONITOR WITH DOPAMINE INFUSING ON 5MCG.ON VENT SETTINGS AC/VC 18 TV 500 FIO2 32% PEEP 5,WITH O2 SAT AT 91%.SUCTIONING RENDERED EVERY 2 HOURS AND PRN WITH MINIMUM SECRETIONS NOTED.ABDOMEN OBESE WITH + BSX4 QUADS.GLUCERNA INFUSINF AT 65ML/HOUR AND TOLERATING FAIRLY WELL NO VONMITING AND DIARRHEA OBSERVE AND NO INCREASE GASTRIC RESIDUAL.ROBLES DRAINING ADEQUATE AMOUNT OF URINE.RECTAL TUBE PATENT AND INTACT WITH STOOL DRINING.ALL PULSES PRESENT AND PALPABLE.WILL CONTINUE TO MONITOR.
[2022-08-23] MEDS: LORazepam 2 MG/ML VIAL IVP PRN (22:12)
[2022-08-24] VITALS (29 sets, daily range): BP systolic 86–157; BP diastolic 30–76
[2022-08-24] MEDS: DEXMEDETOMIDINE HCL 400 MCG in NACL 0.9% 96 ML IV PRN ×8 (00:34→23:00)
[2022-08-24] MEDS: PIPERACILLIN/TAZOBACTAM 3.375 GM in NACL 0.9% 50 ML IV SCH ×3 (05:57→17:22)
[2022-08-24] MEDS: BLOOD GLUCOSE MONITORING 1 DEV DEV FS SCH ×3 (06:41→17:53)
[2022-08-24] MEDS: INSULIN LISPRO SLIDING SCALE 100 UNITS/ML VIAL SUBQ PRN ×3 (06:44→17:55)
--- NOTE | 2022-08-24 07:00 | NUR ---
Received report from GILES Ng. Pt resting in bed with eyes closed. Pt responds to name, opens eyes spontaneously, able to move all extremities without issue. PERRLA 3mm. Pt on Precedex 1cg/kg/hr, RASS -2. Bilateral wrist restraints in place, neurovascular status of bilateral wrists intact, no injury noted. Patient is on dopamine 1 mcg/kg/min drip at this time, SR on monitor; S1&S2 auscultated. Pulses +2 BUE/BLE, cap refill < 3seconds. EMELY PICC line in place, running without issue, arm and site appear WNL, dressing is CDI. Blisters to R FA covered with dressing per order. Lung sounds clear bilaterally; ETT to vent saturating at 94%. Bowel sounds active, 100ml residual, tolerating tube feeding. Rectal tube in place draining brown liquid stool. F/c in place draining clear yellow urine to gravity. Patient stable at this time, will continue to monitor.
--- NOTE | 2022-08-24 07:00 | NUR ---
ENDORSED TO JV GRAFF SHIFT RN FOR CONTINUITY OF CARE.
[2022-08-24] MEDS: COMMUNICATION ORDER MC SCH (09:00)
[2022-08-24 09:25] LABS: BASOPHILS # (AUTO) 0.1 K/uL (0.00-0.22); BASOPHILS % (AUTO) 0.6 % (0.0-2.0); EOSINOPHILS # (AUTO) 0.1 K/uL (0-0.4); EOSINOPHILS % (AUTO) 0.9 % (0.0-4.0); HEMATOCRIT 42.2 % (36-48); HEMOGLOBIN 13.5 g/dL (12.0-16.0); LYMPHOCYTES # (AUTO) 3.4 K/uL (2.5-16.5); LYMPHOCYTES % (AUTO) 22.6 % (20.5-51.1); MEAN CORPUSCULAR HEMOGLOBIN 27 pg (27-31); MEAN CORPUSCULAR HGB CONC 32 g/dL (33-37); MEAN CORPUSCULAR VOLUME 85.4 fL (80-94); NEUTROPHILS # (AUTO) 10.3 K/uL (1.8-7.7); NEUTROPHILS % (AUTO) 68.9 % (42.2-75.2); PLATELET COUNT (AUTO) 271 K/uL (140-450); RED BLOOD CELL COUNT(AUTO) 4.95 MIL/uL (4.20-5.40); RED CELL DISTRIBUTION WIDTH 15.8 % (11.6-13.7)
[2022-08-24 09:28] LABS: ANION GAP 15.8 (8-16); CARBON DIOXIDE 26.3 mmol/L (21-32); CREATININE 1.4 mg/dL (0.6-1.3); POTASSIUM 4.1 mmol/L (3.5-5.1)
[2022-08-24 09:33] LABS: MAGNESIUM 1.7 mg/dL (1.8-2.4); PHOSPHORUS 4.5 mg/dL (2.5-4.9)
[2022-08-24] MEDS: PANTOPRAZOLE 40 MG INJ VIAL IVP SCH (09:55)
[2022-08-24] MEDS: FUROSEMIDE 40 MG/4 ML VIAL IVP SCH ×2 (09:56→17:21)
[2022-08-24] MEDS: QUEtiapine FUMARATE 25 MG TAB NG SCH ×2 (09:58→17:21)
[2022-08-24] MEDS: MAGNESIUM OXIDE 400 MG TAB GT SCH (09:59)
--- NOTE | 2022-08-24 11:38 | NUR ---
PT AWAKE AND IRRITABLE, NON- COOPERATIVE AND EASILY AGITATED, -25 NIF, SBT WEANING TRIAL WITH CPAP 10/31 35%, RSBI 131 RR 39-45, 8 MINUTES TOTAL. SBT REPEATED @ 1331 RR41, SBT ENDED DUE TO INCREASED RR. RN AWARE. WILL CONTINUE TO MONITOR.
[2022-08-24] MEDS: LORazepam 2 MG/ML VIAL IVP PRN ×2 (11:49→18:22)
--- NOTE | 2022-08-24 11:49 | NUR ---
Ativan administered to patient per MD order for increased agitation mb combativeness and attempting to extubate. Pt becomes combative with care and assessments, attempted to reorient and explain procedure; pt continued with combative behavior. Will continue to monitor.
[2022-08-24] MEDS: DOPamine 400 MG/D5W PREMIX 250 ML IV PRN (12:40)
--- NOTE | 2022-08-24 17:15 | NUR ---
Dr. Romero notified of expiring Zosyn order. Medication renewed with out changes per MD order.
--- NOTE | 2022-08-24 19:20 | NUR ---
Report endorsed to GILES Montano.
--- NOTE | 2022-08-24 19:30 | NUR ---
RECEIVED PT. FROM DAY SHIFT GILES CARIAS.PT. CONT. ON ETT TO VENT A/C VC RATE 18, FIO2 32%, TV 500, PEEP 5 AND O2 SAT 94%. PER JV PT. HR 52 SINUS BRADYCARDIA IN THE MONITOR. HAD A CPAP TRIAL AND DIDN'T TOLERATE ONLY <30 MINS. PICC LINE TO RIGHT UPPER ARM INFUSING PRECEDEX 1.2 MCG/KG/HR, DOPAMINE 1 MCG/KG/MIN AND NS TKO. PT. PICC LINE PATENT AND INTACT. NO S/S OF INFECTION. OGT IN PLACED RUNNING GLUCERNA AT 65 ML/HR AND WITH MINIMAL GASTRIC RESIDUAL 5 ML. SKIN INTACT.ROBLES CATHETER TO GRAVITY WITH CLEAR YELLOW COLOR URINE. RECTAL TUBE IN PLACED. ON BILATERAL SOFT WRIST RESTRAINT AND SITE NO S/S OF POOR CIRCULATION. NO S/S OF INJURY. CALL LIGHT WITHIN REACH. REPOSITIONED AND PLACED COMFORTABLY IN BED. PROVIDED SAFE AND QUIET ENVIRONMENT. NO S/S OF PAIN AND WILL CONTINUE TO MONITOR.
[2022-08-25] VITALS (31 sets, daily range): BP systolic 80–140; BP diastolic 36–74
[2022-08-25] MEDS: PIPERACILLIN/TAZOBACTAM 3.375 GM in NACL 0.9% 50 ML IV SCH ×4 (00:17→17:25)
[2022-08-25] MEDS: INSULIN LISPRO SLIDING SCALE 100 UNITS/ML VIAL SUBQ PRN ×4 (00:23→17:39)
[2022-08-25] MEDS: BLOOD GLUCOSE MONITORING 1 DEV DEV FS SCH ×4 (00:23→17:37)
[2022-08-25] MEDS: DEXMEDETOMIDINE HCL 400 MCG in NACL 0.9% 96 ML IV PRN ×7 (03:42→21:02)
--- NOTE | 2022-08-25 07:15 | NUR ---
RECEIVED PT. FROM ELECTRICAL DESIGNER, KINDRA SKAGGS. PT SEDATED. ETT TO VENT A/C VC RATE 18, FIO2 30%, TV 500, PEEP 5 AND O2 SAT 94%. SINUS BRADYCARDIA ON THE MONITOR. PICC LINE TO RIGHT UPPER ARM INFUSING PRECEDEX 1.2 MCG/KG/HR, DOPAMINE 1 MCG/KG/MIN AND NS TKO. OGT IN PLACED RUNNING GLUCERNA AT 65 ML/HR, FWF 100 MLS Q6H. SKIN INTACT, BLISTER ON RT ARM, COVERED WITH DRESSING, SEE WOUND ASSESSMENT. ROBLES CATHETER TO GRAVITY WITH CLEAR YELLOW COLOR URINE. RECTAL TUBE IN PLACED. ON BILATERAL SOFT WRIST RESTRAINT AND SITE NO S/S OF POOR CIRCULATION. NO S/S OF INJURY. CALL LIGHT WITHIN REACH. REPOSITIONED AND PLACED COMFORTABLY IN BED. PROVIDED SAFE AND QUIET ENVIRONMENT. NO S/S OF PAIN AND WILL CONTINUE TO MONITOR.
[2022-08-25 07:45] LABS: BASOPHILS # (AUTO) 0.2 K/uL (0.00-0.22); EOSINOPHILS # (AUTO) 0.7 K/uL (0-0.4); EOSINOPHILS % (AUTO) 3.8 % (0.0-4.0); HEMATOCRIT 41.7 % (36-48); HEMOGLOBIN 13.2 g/dL (12.0-16.0); LYMPHOCYTES # (AUTO) 2.4 K/uL (2.5-16.5); LYMPHOCYTES % (AUTO) 13.5 % (20.5-51.1); MEAN CORPUSCULAR HEMOGLOBIN 27 pg (27-31); MEAN CORPUSCULAR HGB CONC 32 g/dL (33-37); MEAN CORPUSCULAR VOLUME 86.2 fL (80-94); MONOCYTES # (AUTO) 1.6 K/uL (0.8-1.0); MONOCYTES % (AUTO) 8.9 % (1.7-9.3); NEUTROPHILS # (AUTO) 12.7 K/uL (1.8-7.7); NEUTROPHILS % (AUTO) 72.8 % (42.2-75.2); PLATELET COUNT (AUTO) 284 K/uL (140-450); RED BLOOD CELL COUNT(AUTO) 4.84 MIL/uL (4.20-5.40); RED CELL DISTRIBUTION WIDTH 15.5 % (11.6-13.7); WHITE BLOOD COUNT (AUTO) 17.4 K/uL (4.8-10.8)
--- NOTE | 2022-08-25 07:52 | NUR ---
REPORT GIVEN TO DAY SHIFT PHILL SKAGGS FOR CONTINUITY OF CARE.
[2022-08-25 07:59] LABS: ANION GAP 14.5 (8-16); CARBON DIOXIDE 24.3 mmol/L (21-32); CREATININE 1.5 mg/dL (0.6-1.3); POTASSIUM 3.8 mmol/L (3.5-5.1)
[2022-08-25 08:03] LABS: MAGNESIUM 1.5 mg/dL (1.8-2.4); PHOSPHORUS 4.4 mg/dL (2.5-4.9)
[2022-08-25] MEDS: FUROSEMIDE 40 MG/4 ML VIAL IVP SCH ×2 (08:09→17:25)
[2022-08-25] MEDS: PANTOPRAZOLE 40 MG INJ VIAL IVP SCH (08:10)
[2022-08-25] MEDS: QUEtiapine FUMARATE 25 MG TAB NG SCH ×2 (08:10→17:25)
[2022-08-25] MEDS: COMMUNICATION ORDER MC SCH (08:10)
[2022-08-25] MEDS: MAGNESIUM OXIDE 400 MG TAB GT SCH (08:11)
[2022-08-25] MEDS: LORazepam 2 MG/ML VIAL IVP PRN ×3 (09:52→22:08)
--- NOTE | 2022-08-25 09:55 | NUR ---
DR RIVERA ROUNDING AT BEDSIDE. UPDATED PT INFORMATION REGARDING SB OVER THE NIGHT PER WIRE COINER NURSE.
--- NOTE | 2022-08-25 10:00 | NUR ---
PT HAS BEEN AGITATED, NOT COOPERATED. ATIVAN 2 MG PRN GIVEN AT THIS TIME.
--- NOTE | 2022-08-25 10:35 | NUR ---
DR JENA RAMÍREZ AT BEDSIDE. UPDATED PT INFORMATION.
--- NOTE | 2022-08-25 11:36 | NUR ---
DR SILVER ROUNDMSAON AT BEDSIDE. UPDATED INFORMATION. ORDERED ATIVAN 2MG CAN BE Q2H PRN. MAG RIDER 2G, IV, ONCE.
[2022-08-25] MEDS ORDERED: MAG SULF 2000 MG/WATER PREMIX 50 ML IV SCH (12:15)
--- NOTE | 2022-08-25 19:27 | NUR ---
ENDORSED TO PLAYGROUND WORKER BRIANDA RN FOR CONTINUITY OF CARE. ALL QUESTIONS ANSWERED.
--- NOTE | 2022-08-25 19:30 | NUR ---
RECEIVED PATIENT ON BED WITH HOB ELEVATED TO 30 DEGREE; ORALLY INTUBATED AND VENTILATED AT 30% FIO2, S02 98%. CARDIACSCOPE SHOWS ON SINUS RHYTHM HR 68/MIN NO ARRHYTHMIAS SEEN.ON CONTINUOUS SEDATION OF PRECEDEX 1.2 MCG/KG/HR VIA PICC LINE TO RIGHT UPPER ARM; INTACT AND DOPAMINE DRIP FOR BP MAINTENANCE. ABDOMEN IS SOFT, ACTIVE BOWEL SOUNDS; ON CONTINUOUS TUBE FEEDING GLUCERNA 1.2 AT 65 ML/HR VIA OGT; TOLERATED. WITH RECTAL TUBE IN PLACE TO GRAVITY DRAINAGE BAG DRAINING TO LARGE AMOUNT OF WATERY BROWN STOOL; INTACT. WITH ROBLES CATH IN PLACE DRAINING TO CLEAR YELLOW URINE OUTPUT; PATENT AND INTACT.
--- NOTE | 2022-08-25 20:30 | NUR ---
ORAL CARE DONE, NOTICED OGT NOT IN PLACE; INSERTED A NEW ONE THEN TUBE FEEDING CONTINUED.
--- NOTE | 2022-08-25 20:45 | NUR ---
TRIED TO PUT OFF DOPAMINE DRIP BUT BP DROPPED; SO PUT IT BACK TO 2 MCG/KG/MIN ASP ER PROTOCOL.
[2022-08-26] VITALS (27 sets, daily range): BP systolic 94–149; BP diastolic 51–105
[2022-08-26] MEDS: DEXMEDETOMIDINE HCL 400 MCG in NACL 0.9% 96 ML IV PRN ×8 (00:24→22:43)
[2022-08-26] MEDS: BLOOD GLUCOSE MONITORING 1 DEV DEV FS SCH ×4 (00:30→18:10)
[2022-08-26] MEDS: INSULIN LISPRO SLIDING SCALE 100 UNITS/ML VIAL SUBQ PRN ×4 (00:32→18:15)
[2022-08-26] MEDS: PIPERACILLIN/TAZOBACTAM 3.375 GM in NACL 0.9% 50 ML IV SCH ×4 (00:33→18:10)
[2022-08-26] MEDS: DOPamine 400 MG/D5W PREMIX 250 ML IV PRN ×2 (00:44→22:57)
--- NOTE | 2022-08-26 04:00 | NUR ---
WOUND CARE DONE; MORNING BED BATH DONE, KEPT CLEAN DRY AND COMFORTABLE.
[2022-08-26 08:55] LABS: ANION GAP 12.9 (8-16); CARBON DIOXIDE 28.6 mmol/L (21-32); CREATININE 1.3 mg/dL (0.6-1.3); POTASSIUM 3.5 mmol/L (3.5-5.1)
[2022-08-26] MEDS: COMMUNICATION ORDER MC SCH (09:00)
[2022-08-26] MEDS: MAGNESIUM OXIDE 400 MG TAB GT SCH (09:49)
[2022-08-26] MEDS: FUROSEMIDE 40 MG/4 ML VIAL IVP SCH ×2 (09:49→17:45)
[2022-08-26] MEDS: QUEtiapine FUMARATE 25 MG TAB NG SCH ×2 (09:50→17:45)
[2022-08-26] MEDS: PANTOPRAZOLE 40 MG INJ VIAL IVP SCH (09:50)
[2022-08-26] MEDS: LORazepam 2 MG/ML VIAL IVP PRN ×2 (12:33→23:35)
--- NOTE | 2022-08-26 12:33 | NUR ---
PT COMPLETED 2 HOURS OF SBT. CPAP 5 PS 12 AND FIO2 30%. NURSE AWARE OF TRIAL.
--- NOTE | 2022-08-26 15:16 | NUR ---
08/26/22 RD FOLLOW UP COMPLETED PLEASE REFER TO NUTRITION ASSESSMENT UNDER CARE ACTIVITY FOR ESTIMATED NUTRITIONAL NEEDS. 1. CONTINUE WITH GLUCERNA 1.2 @65 ML/HR, FWF 100 ML Q6H, BANATROL TID FOR DIARRHEA UNTIL SYMPTOMS RESOLVED -WILL PROVIDE 1560 ML VOLUME, 1872 KCAL, AND 94 GRAMS OF PROTEIN, 1656 ML FREE WATER, MEETING 90% OF ESTIMATED KCAL AND 80% OF ESTIMATED PROTEIN NEEDS; ADEQUATE. 2. MONITOR GI SYMPTOMS, GASTRIC RESIDUALS, AND NUTRITION RELATED LAB VALUES 3. CONSULT RD PRN 4. RD TO FOLLOW-UP 2-3 DAYS, HIGH RISK REVIEWED BY KANU BEATTY RD
--- NOTE | 2022-08-26 19:10 | NUR ---
TRANSFER OF CARE FROM DAY SHIFT, REPORT RECEIVED FROM JOSE. PATIENT RECEIVED SEMI-AROUSABLE TO NAME AND TOUCH. PATIENT IS INTUBATED, (ETT TO VENT) WITH THE FOLLOWING SETTINGS: AC/VC, FIO2 = 30%, VT = 500, R = 18, PEEP = 5. PATIENT HAS OG TUBE AND IS RECEIVING GLUCERNA 1.2 @ 65ML/HR. PATIENT HAS EMELY PICC WITH THE FOLLOWING MEDICATIONS INFUSING: DOPAMINE 400MCG @2.994 MCG/KG/MIN, PRECEDEX 400MCG @1.2 MCG/KG/HR, NS @ 3ML/HR. PATIENT HAS ROBLES IN PLACE, FLEXI-SEAL IN PLACE. CURRENT VITALS AT START OF SHIFT: TEMP = 97.1F, HR = 73, O2 SAT = 95%, R = 19, BP = 98/61. WILL CONTINUE TO MONITOR PATIENT FOR ANY CHANGE OF CONDITION.
--- NOTE | 2022-08-26 23:27 | NUR ---
RT AT BEDSIDE
[2022-08-27] VITALS (30 sets, daily range): BP systolic 84–128; BP diastolic 41–79
[2022-08-27] MEDS: BLOOD GLUCOSE MONITORING 1 DEV DEV FS SCH ×5 (00:07→23:53)
[2022-08-27] MEDS: PIPERACILLIN/TAZOBACTAM 3.375 GM in NACL 0.9% 50 ML IV SCH ×5 (00:07→23:54)
[2022-08-27] MEDS: INSULIN LISPRO SLIDING SCALE 100 UNITS/ML VIAL SUBQ PRN ×5 (00:12→23:52)
[2022-08-27] MEDS: DEXMEDETOMIDINE HCL 400 MCG in NACL 0.9% 96 ML IV PRN ×7 (01:37→23:18)
[2022-08-27] MEDS: LORazepam 2 MG/ML VIAL IVP PRN ×2 (06:39→22:49)
--- NOTE | 2022-08-27 07:23 | NUR ---
TRANSFER OF CARE TO DAYSAZFT, REPORT ENDORSED TO ROSALBA
--- NOTE | 2022-08-27 07:30 | NUR ---
RECEIVED REPORT FROM [employer] INTERNSH[employer]. PT SEDATED. ETT TO VENT A/C VC RATE 18, FIO2 30%, TV 500, PEEP 5 AND O2 SAT 98%. SINUS RHYTHM ON THE MONITOR. PICC LINE TO RIGHT UPPER ARM INFUSING PRECEDEX 1.2 MCG/KG/HR, DOPAMINE 3 MCG/KG/MIN AND NS TKO. OGT IN PLACE RUNNING GLUCERNA AT 65 ML/HR, FWF 100 MLS Q6H. SKIN INTACT, BLISTER ON RT ARM, COVERED WITH DRESSING, SEE WOUND ASSESSMENT. ROBLES CATHETER TO GRAVITY WITH CLEAR YELLOW COLOR URINE. RECTAL TUBE IN PLACED. ON BILATERAL SOFT WRIST RESTRAINT AND SITE NO S/S OF POOR CIRCULATION. NO S/S OF INJURY. CALL LIGHT WITHIN REACH. NO S/S OF PAIN. WILL CONTINUE TO MONITOR.
[2022-08-27] MEDS: PANTOPRAZOLE 40 MG INJ VIAL IVP SCH (08:48)
[2022-08-27] MEDS: FUROSEMIDE 40 MG/4 ML VIAL IVP SCH (08:48)
[2022-08-27] MEDS: COMMUNICATION ORDER MC SCH (08:48)
[2022-08-27] MEDS: QUEtiapine FUMARATE 25 MG TAB NG SCH ×2 (08:48→17:00)
--- NOTE | 2022-08-27 08:50 | NUR ---
due meds given via OGT, tolerated well. Oral care done, turned and repositioned
[2022-08-27] MEDS: MAGNESIUM OXIDE 400 MG TAB GT SCH (09:15)
--- NOTE | 2022-08-27 13:45 | NUR ---
SON AT BEDSIDE, UPDATE GIVEN
--- NOTE | 2022-08-27 14:05 | NUR ---
SBT ENDED, TOLERATED 2HRS
--- NOTE | 2022-08-27 19:13 | NUR ---
RECEIVED REPORT FROM AM SHIFT. PATIENT WAS SEEN AND ASSESSED. PATIENT IS INTUBATED AND SEDATED WITH ETT SIZE 7.5 AND SECURED WITH A BITING BLOCK ANCHOR-FAST 24cm @ TEETH. PATIENT IS ON VENTILATOR SUPPORT. VENT SETTINGS: AC/VC RR 18, VT 500, PEEP 5, FiO2 30% WITH SPO2 OF 98%. VENTILATOR PLUGGED IN RED OUTLET. VENTILATOR ALARMS SET APPROPRIATELY AND AUDIBLE TO ENVIRONMENT. AMBU BAG AT BEDSIDE. HEAD OF BED GREATER THAN 30 DEGREES. NOTICED ADEQUATE BILATERAL CHEST RISE AND FALL. PATIENT IS IN NO RESPIRATORY DISTRESS AT THIS TIME. SUCTIONED SMALL CLEAR/WHITE THIN SECRETIONS FROM ETT AND SMALL WHITE THIN ORALLY. ORAL CARE WAS DONE AND PT TOLERATED WELL. BILATERAL BREATH SOUNDS ON AUSCULTATION; UPPER LOBES: COARSE CRACKLES LOWER LOBES: COARSE CRACKLES PEAK PRESSURE: 26 cmH20 PLATEAU PRESSURE: 18 cmH20 DRIVING PRESSURE: 13 cmH20 WILL CONTINUE TO MONITOR PATIENT.
--- NOTE | 2022-08-27 21:00 | NUR ---
INCREASED AGITATION AND RESTLESSNESS NOTED, PRECEDEX DRIP TITRATED UP. REPOSITIONED COMFORTABLY, SUPPORTED WITH PILLOWS. KEPT CLEAN AND DRY. HOB UP, TOLERATING OGT FEEDING, NO RESIDUAL AT THIS TIME. ASPIRATION PRECAUTION MAINTAINED. SR. CONT TO MONITOR.
[2022-08-28] VITALS (28 sets, daily range): BP systolic 90–129; BP diastolic 53–103
[2022-08-28] MEDS: DOPamine 400 MG/D5W PREMIX 250 ML IV PRN (00:45)
[2022-08-28] MEDS: DEXMEDETOMIDINE HCL 400 MCG in NACL 0.9% 96 ML IV PRN ×4 (04:09→14:32)
--- NOTE | 2022-08-28 05:00 | NUR ---
AM CARE RENDERED, ERAN PROCEDURE WELL. PRECEDEX DRIP STOPPED, HR LOW 50'S. nOT IN ANY FORM OF DISTRESS. CONT TO MONITOR.
[2022-08-28] MEDS: INSULIN LISPRO SLIDING SCALE 100 UNITS/ML VIAL SUBQ PRN ×2 (06:26→18:38)
[2022-08-28] MEDS: BLOOD GLUCOSE MONITORING 1 DEV DEV FS SCH ×3 (06:29→18:31)
[2022-08-28] MEDS: PIPERACILLIN/TAZOBACTAM 3.375 GM in NACL 0.9% 50 ML IV SCH ×3 (06:30→18:35)
--- NOTE | 2022-08-28 07:00 | NUR ---
Received report from GILES Klein NOC shift nurse. Pt resting in bed with eyes close. Pt appears more alert today and calm but refuses care and assessment at times; indicates refusal by shaking head and attempting to move away. Pupils 3mm PERRLA. Moves all extremities. Bilateral wrist restraints in place; no s/s of injury, neurovascular intact. Pulses +2 BUE, Pt refused pulse check to BLE. Feet appear WNL. Cap refill <3. S1 and S2 auscultated and SR on monitor. PICC line to right upper extremity running without issue; running Precedex at 0.9mcg/kg/hr and NS at TKO. Crackles noted to upper lobes, diminished lower lobes. Pt suctioned per standard. Following suction upper lobes clear with auscultation. Vent settings as follows, AC VC 30%, 500, 18, 5. saturating at 99%. Bowel sounds hypo active upper quadrants, active lower quadrants. OGtube in place, Residual 5ml. Receiving Glucerna at 65ml hr. Rectal tube in place draining liquid brown stool. F/c in place draining clear yellow urine to gravity. Will continue to monitor.
--- NOTE | 2022-08-28 07:18 | NUR ---
PT REMAINS SEDATED WITH PRECEDEX, TOLERATING CURRENT VENT AND OGT FEEDING. EDITH SOFT WRIST RESTRAINTS IN PLACE. rEPORT GIVEN TO INCOMING AM RN [place], GEN CONDITION CRIOTICAL.
--- NOTE | 2022-08-28 08:00 | NUR ---
Pt refused oral care. Educated pt regarding oral care. Pt continues to refuse.
[2022-08-28] MEDS: MAGNESIUM OXIDE 400 MG TAB GT SCH (08:09)
[2022-08-28] MEDS: PANTOPRAZOLE 40 MG INJ VIAL IVP SCH (08:12)
[2022-08-28] MEDS: FUROSEMIDE 40 MG/4 ML VIAL IVP SCH (08:12)
[2022-08-28] MEDS: QUEtiapine FUMARATE 25 MG TAB NG SCH ×2 (08:13→17:00)
[2022-08-28 09:00] LABS: BASOPHILS # (AUTO) 0.1 K/uL (0.00-0.22); BASOPHILS % (AUTO) 1.2 % (0.0-2.0); EOSINOPHILS # (AUTO) 0.7 K/uL (0-0.4); HEMATOCRIT 39.6 % (36-48); HEMOGLOBIN 12.5 g/dL (12.0-16.0); LYMPHOCYTES # (AUTO) 2.8 K/uL (2.5-16.5); LYMPHOCYTES % (AUTO) 22.8 % (20.5-51.1); MEAN CORPUSCULAR HEMOGLOBIN 27 pg (27-31); MEAN CORPUSCULAR HGB CONC 32 g/dL (33-37); MEAN CORPUSCULAR VOLUME 86.1 fL (80-94); MONOCYTES # (AUTO) 1.5 K/uL (0.8-1.0); MONOCYTES % (AUTO) 12.2 % (1.7-9.3); NEUTROPHILS % (AUTO) 57.8 % (42.2-75.2); PLATELET COUNT (AUTO) 271 K/uL (140-450); RED CELL DISTRIBUTION WIDTH 15.8 % (11.6-13.7); WHITE BLOOD COUNT (AUTO) 12.1 K/uL (4.8-10.8)
[2022-08-28] MEDS: COMMUNICATION ORDER MC SCH (09:00)
[2022-08-28 09:05] LABS: ANION GAP 15.3 (8-16); CARBON DIOXIDE 26.2 mmol/L (21-32); CREATININE 1.3 mg/dL (0.6-1.3); POTASSIUM 3.5 mmol/L (3.5-5.1)
--- NOTE | 2022-08-28 09:48 | NUR ---
Dr. Magana here to see pt. No new orders at this time.
--- NOTE | 2022-08-28 10:26 | NUR ---
PT PLACED ON SBT AT APPROXIMATELY 0935.PT IS ALERT AND FOLLOW PT IS AGITATED, RR 28-36. DR ST GAVE VERBAL ORDER FOR MORPHINE SULPHATE 4MG Q4HR PRN AND ABG AFTER 2 HOURS OF SBT.
--- NOTE | 2022-08-28 12:26 | NUR ---
PT EXTUBATED WITH RT AT BEDSIDE PLACED ON BIPAP AT 10/5, BACK UP RATE 16. SATURATING AT 100%. WILL CONTINUE TO MONITOR.
--- NOTE | 2022-08-28 19:04 | NUR ---
RECEIVED REPORT FROM AM SHIFT. PATIENT WAS SEEN AND ASSESSED. PATIENT IS ON PVC MODE ON BiPAP. PATIENT IS AWAKE AND ALERT AT THIS TIME. PATIENT IS ON BiPAP SETTINGS: IPAP 12, EPAP 5, BACK UP RR 16, FiO2 25%. SPO2 98%. NOTICED ADEQUATE BILATERAL CHEST RISE AND FALL. MACHINE PLUGGED IN RED OUTLET. BiPAP ALARMS SET APPROPRIATELY AND AUDIBLE TO ENVIRONMENT. AMBU BAG AT BEDSIDE. PATIENT IS IN NO RESPIRATORY DISTRESS AT THIS TIME. BILATERAL BREATH SOUNDS ON AUSCULTATION; UPPER LOBES: CLEAR/DIMINISHED LOWER LOBES: DIMINISHED WILL CONTINUE TO MONITOR PATIENT.
--- NOTE | 2022-08-28 19:23 | NUR ---
SBAR REPORT GIVEN TO CHATA RN, ALL CARES ENDORSED.
--- NOTE | 2022-08-28 20:00 | NUR ---
RECEIVED PT ON BED EXTUBATED, DROWSY, EASILY AROUSABLE, LUIS MIGUEL PAIN AT THIS TIME, ON BIPAP 12/5, BRB 16, FIO2 25%, SAT 98-100%. AFEBRILE. ASSESSMENT DONE. SLIGHLY RESTLESS BUT COOPERATIVE AND FOLLOWS COMMANDS. ON PRECEDEX DRIP AT 0.5 MCG/KG/HR VIA PICC RIGHT UPPER ARM. REPOSITIONED TO SIDE, SUPPORTED WITH PILLOWS. SAFETY MEASURES MAINTAINED. NEEDS ATTENDED. CALL LIGHT WITHIN REACG. NPO. SR. CONT TO MONITOR./
[2022-08-29] VITALS (30 sets, daily range): BP systolic 94–137; BP diastolic 48–92
--- NOTE | 2022-08-29 | NUR ---
ASLEEP, AWAKE AT INTERVALS. REMAINS ON BIPAP, RR REMAINS INCREASED,27-30. NOT IN ANY FORM OF DISTRESS. CONT TO MONITOR.
[2022-08-29] MEDS: PIPERACILLIN/TAZOBACTAM 3.375 GM in NACL 0.9% 50 ML IV SCH (00:21)
--- NOTE | 2022-08-29 01:08 | NUR ---
2300 LOWERED FIO2 TO 25% ON HIFLOW AND LOWERED LITER FLOW TO 20L. TEMPERATURE IS 33 ON HIFLOW. PT IS SATTING 97%. NO SOB NOTED
[2022-08-29] MEDS: BLOOD GLUCOSE MONITORING 1 DEV DEV FS SCH ×4 (05:43→17:17)
--- NOTE | 2022-08-29 06:00 | NUR ---
AM CARE RENDERED, ERAN WELL. KEPT CLEAN AND DRY. COOPERATIVE WITH CARE. NO SIGNIFICANT CHANGE NOTED DURING SHIFT.
[2022-08-29 06:03] LABS: BASOPHILS # (AUTO) 0.2 K/uL (0.00-0.22); BASOPHILS % (AUTO) 1.2 % (0.0-2.0); EOSINOPHILS # (AUTO) 0.6 K/uL (0-0.4); EOSINOPHILS % (AUTO) 4.8 % (0.0-4.0); HEMATOCRIT 41.2 % (36-48); HEMOGLOBIN 13.3 g/dL (12.0-16.0); LYMPHOCYTES # (AUTO) 3.2 K/uL (2.5-16.5); LYMPHOCYTES % (AUTO) 24.9 % (20.5-51.1); MEAN CORPUSCULAR HEMOGLOBIN 28 pg (27-31); MEAN CORPUSCULAR HGB CONC 32 g/dL (33-37); MEAN CORPUSCULAR VOLUME 84.9 fL (80-94); MONOCYTES # (AUTO) 1.3 K/uL (0.8-1.0); MONOCYTES % (AUTO) 10.3 % (1.7-9.3); NEUTROPHILS # (AUTO) 7.5 K/uL (1.8-7.7); NEUTROPHILS % (AUTO) 58.8 % (42.2-75.2); PLATELET COUNT (AUTO) 309 K/uL (140-450); RED BLOOD CELL COUNT(AUTO) 4.86 MIL/uL (4.20-5.40); RED CELL DISTRIBUTION WIDTH 15.5 % (11.6-13.7); WHITE BLOOD COUNT (AUTO) 12.8 K/uL (4.8-10.8)
[2022-08-29 06:47] LABS: ANION GAP 15.8 (8-16); CARBON DIOXIDE 27.4 mmol/L (21-32); CREATININE 1.2 mg/dL (0.6-1.3); POTASSIUM 4.2 mmol/L (3.5-5.1)
--- NOTE | 2022-08-29 07:10 | NUR ---
RECEIVED BEDSIDE REPORT FROM BEHAVIORAL HEALTH CONSULTANT RN FOR CONTINUITY OF CARE. PT AWAKE AND ALERT, ABLE TO MAKE NEEDS KNOWN AND FOLLOW COMMANDS. ABLE TO MOVE EXTREMITIES SLIGHTLY. BIPAP IN PLACE 12/5 FIO2 21% RATE 16. PICC TO EMELY INFUSING PRECDEX AT 0.6 MCG/KG/HR. RECTAL TUBE IN PLACE DRAINING LIQUID GREENISH BROWN STOOL. F/C TO GRAVITY. BED LOCKED AND IN LOWEST POSITION. HOB 30 DEGREES.
--- NOTE | 2022-08-29 07:29 | NUR ---
ENDORSED TO INCOMING AM RN. NPO. FOR SWALLOW EVAL TODAY. GEN CONDITION GUARDED.
[2022-08-29] MEDS: COMMUNICATION ORDER MC SCH (08:25)
[2022-08-29] MEDS: MAGNESIUM OXIDE 400 MG TAB GT SCH (08:28)
[2022-08-29] MEDS: FUROSEMIDE 40 MG/4 ML VIAL IVP SCH ×2 (08:29→21:14)
[2022-08-29] MEDS: PANTOPRAZOLE 40 MG INJ VIAL IVP SCH (08:29)
[2022-08-29] MEDS: QUEtiapine FUMARATE 25 MG TAB NG SCH ×3 (08:29→17:16)
--- NOTE | 2022-08-29 09:14 | NUR ---
SEEN AND EXAMINED BY DR. ST. ORDERS FOR ADDITIONAL 2G MAG RIDER AND TRY TO SWITCH FROM BIPAP TO HIFLOW TODAY. RT MADE AWARE.
[2022-08-29] MEDS: MORPHINE SULFATE 4 MG/ML SYR IVP PRN ×2 (09:21→15:01)
[2022-08-29] MEDS: MAG SULF 2000 MG/WATER PREMIX 50 ML IV PRN (09:22)
--- NOTE | 2022-08-29 10:10 | NUR ---
SWITCHED PT FROM BIPAP TO HIGH FLOW NASAL CANNULA. CURRENT SETTING ARE 30L, 28%, 37 DEGREES. BLOOD PRESSURE WAS STABLE, HEART RATE IN THE 80S, RESPIRATORY RATE 16-20BPM. NO DISTRESS NOTED. BIPAP ON STANDBY. WILL CONTINUE TO MONITOR.
[2022-08-29] MEDS: DEXMEDETOMIDINE HCL 400 MCG in NACL 0.9% 96 ML IV PRN ×2 (10:45→21:18)
[2022-08-29] MEDS ORDERED: MAG SULF 2000 MG/WATER PREMIX 50 ML IV SCH (11:00)
--- NOTE | 2022-08-29 11:25 | NUR ---
SEEN AND EXAMINED BY DR. RIVERA AT BEDSIDE.
[2022-08-29] MEDS: INSULIN LISPRO SLIDING SCALE 100 UNITS/ML VIAL SUBQ PRN ×2 (11:51→17:25)
[2022-08-29] MEDS: PIPERACILLIN/TAZOBACTAM 3.375 GM in DEXTROSE 5% 50 ML IV SCH ×2 (11:51→17:16)
--- NOTE | 2022-08-29 15:46 | NUR ---
NOTIFIED DR. ST OF PT TACHYCARDIA. ORDERS TO RESTART PRECEDEX AND STAT CXR.
--- NOTE | 2022-08-29 16:45 | NUR ---
08/29/22 RD FOLLOW UP COMPLETED PLEASE REFER TO NUTRITION ASSESSMENT UNDER CARE ACTIVITY FOR ESTIMATED NUTRITIONAL NEEDS. 1. CONTINUE MECHANICAL SOFT GROUND DIET, TOLERATED 2. CONTINUE BANATROL TID FOR DIARRHEA UNTIL SYMPTOMS RESOLVED 3. MONITOR GI SYMPTOMS AND NUTRITION RELATED LAB VALUES 4. RD TO FOLLOW-UP 2-3 DAYS, HIGH RISK REVIEWED BY KANU BEATTY RD
--- NOTE | 2022-08-29 17:30 | NUR ---
ATTEMPTED TO GIVE PT TYLENOL FOR ELEVATED TEMP AND SCHEDULED PO SEROQUEL BUT PT REFUSED.
--- NOTE | 2022-08-29 19:47 | NUR ---
ENDORSED BEDSIDE REPORT TO SEPTEMBER, SQUIRREL WORKER SANDING LINE OPERATOR, FOR CONTINUITY OF CARE.
[2022-08-30] VITALS (28 sets, daily range): BP systolic 86–161; BP diastolic 50–115
[2022-08-30] MEDS: PIPERACILLIN/TAZOBACTAM 3.375 GM in DEXTROSE 5% 50 ML IV SCH ×2 (00:33→06:43)
[2022-08-30] MEDS: BLOOD GLUCOSE MONITORING 1 DEV DEV FS SCH ×4 (00:37→17:36)
[2022-08-30] MEDS: INSULIN LISPRO SLIDING SCALE 100 UNITS/ML VIAL SUBQ PRN ×4 (00:40→17:37)
[2022-08-30] MEDS: LORazepam 2 MG/ML VIAL IVP PRN ×2 (02:18→08:48)
[2022-08-30] MEDS: DEXMEDETOMIDINE HCL 400 MCG in NACL 0.9% 96 ML IV PRN ×3 (03:39→15:16)
--- NOTE | 2022-08-30 05:57 | NUR ---
0550 lowered fio2 to 21% and liter flow to 15l at 33 temperature
--- NOTE | 2022-08-30 06:00 | NUR ---
Pt. remains sedated on Precedex Drip. SR to ST on the scope. No ectopi. On Hiflow 25% with O2Sat @ 91 to 99%. Resting on bed in NAD. Will cont. to monitor.
[2022-08-30 07:10] LABS: BASOPHILS # (AUTO) 0.1 K/uL (0.00-0.22); BASOPHILS % (AUTO) 0.6 % (0.0-2.0); EOSINOPHILS # (AUTO) 0.2 K/uL (0-0.4); EOSINOPHILS % (AUTO) 1.6 % (0.0-4.0); HEMATOCRIT 41.5 % (36-48); HEMOGLOBIN 13.2 g/dL (12.0-16.0); LYMPHOCYTES # (AUTO) 3.3 K/uL (2.5-16.5); LYMPHOCYTES % (AUTO) 26.6 % (20.5-51.1); MEAN CORPUSCULAR HEMOGLOBIN 28 pg (27-31); MEAN CORPUSCULAR HGB CONC 32 g/dL (33-37); MEAN CORPUSCULAR VOLUME 87.1 fL (80-94); MONOCYTES # (AUTO) 1.4 K/uL (0.8-1.0); MONOCYTES % (AUTO) 11.4 % (1.7-9.3); NEUTROPHILS # (AUTO) 7.3 K/uL (1.8-7.7); NEUTROPHILS % (AUTO) 59.8 % (42.2-75.2); PLATELET COUNT (AUTO) 325 K/uL (140-450); RED BLOOD CELL COUNT(AUTO) 4.77 MIL/uL (4.20-5.40); RED CELL DISTRIBUTION WIDTH 15.6 % (11.6-13.7); WHITE BLOOD COUNT (AUTO) 12.3 K/uL (4.8-10.8)
--- NOTE | 2022-08-30 07:15 | NUR ---
RECEIVED BEDSIDE REPORT FROM ADVERTISING CLERK SEPTEMBER RN FOR CONTINUITY OF CARE. PT AWAKE, FOLLOW SIMPLE COMMAND. ABLE TO MAKE NEEDS KNOWN. SR ON MONITOR. ABLE TO MOVE EXTREMITIES SLIGHTLY. HIGH FLOW NC, FIO2 30%, 20L. PICC TO EMELY INFUSING PRECEDEX AT 0.6 MCG/KG/HR. MECHANICAL SOFT DIET. RECTAL TUBE IN PLACE DRAINING LIQUID GREENISH BROWN STOOL. F/C IN PLACE TO GRAVITY. BED LOCKED AND IN LOWEST POSITION. HOB 30 DEGREES.
[2022-08-30 07:59] LABS: ANION GAP 15.4 (8-16); CARBON DIOXIDE 27.6 mmol/L (21-32); CREATININE 1.4 mg/dL (0.6-1.3)
--- NOTE | 2022-08-30 08:02 | NUR ---
PT IS AWAKE, ABLE TO FOLLOW SIMPLE COMMAND. ALOC, REORIENTED PT.
[2022-08-30] MEDS: MAGNESIUM OXIDE 400 MG TAB GT SCH (08:05)
[2022-08-30] MEDS: FUROSEMIDE 40 MG/4 ML VIAL IVP SCH ×2 (08:05→20:04)
[2022-08-30] MEDS: QUEtiapine FUMARATE 25 MG TAB NG SCH ×2 (08:06→17:23)
[2022-08-30] MEDS: PANTOPRAZOLE 40 MG INJ VIAL IVP SCH (08:06)
[2022-08-30] MEDS: COMMUNICATION ORDER MC SCH (08:07)
--- NOTE | 2022-08-30 09:23 | NUR ---
DR ANDERSON ROUNDING AT BEDSIDE. UPDATED PT INFORMATION.
[2022-08-30] MEDS ORDERED: NACL 0.9% 500 ML IV ONE (09:25)
--- NOTE | 2022-08-30 09:35 | NUR ---
DR MACIEL RAMÍREZ AT BEDSIDE. UPDATED PT INFORMATION.
[2022-08-30] MEDS ORDERED: NACL 0.45% 1,000 ML IV SCH (09:40)
--- NOTE | 2022-08-30 09:48 | NUR ---
DR CLEANING ROUNDING AT BESIDE. UPDATED PT INFORMATION.
[2022-08-30] MEDS ORDERED: NACL 0.45% 500 ML IV ONE (09:50)
--- NOTE | 2022-08-30 10:50 | NUR ---
DR ST ORDERED ABGS DUE TO PT ALOC. BREANNA WNL.
--- NOTE | 2022-08-30 11:15 | NUR ---
WOUND CARE RE-EVALUATION NOTE: NO NEW SKIN BREAKS/BLISTERING SKIN NOTICE, MOIST SKIN MULTIPLE BRUISES. POC DISCUSSED WITH PRIMARY RN. AT HI RISK FOR PRESSURE INJURY , CONTINUE WITH CURRENT PREVENTION INTERVENTIONS.
--- NOTE | 2022-08-30 12:26 | NUR ---
MC/JAVON AT BEDSIDE. UPDATED PT INFORMATION. PT WAS A/O X4, INDEPENDENT PRIOR TO THIS ADMISSION.
--- NOTE | 2022-08-30 19:20 | NUR ---
RECEIVED REPORT FROM AM SHIFT. PT WAS SEEN AND ASSESSED. PT WAS FOUND ON ROOM WITH HFNC PRONGS OFF. NO WOB NOTED AT THIS TIME. SPO2 ON ROOM AIR 90%. PLACED PT ON [employer] CANNULA 2L. SPO2 94%. PT TOLERATING WELL. RN NOTIFIED. WILL CONTINUE TO MONITOR.
--- NOTE | 2022-08-30 19:38 | NUR ---
ENDORSED TO BODY FORMER SEPTEMBER RN FOR CONTINUITY OF CARE. ALL QUESTIONS ANSWERED.
[2022-08-30] MEDS: MORPHINE SULFATE 4 MG/ML SYR IVP PRN (20:04)
[2022-08-31] VITALS (24 sets, daily range): BP systolic 90–148; BP diastolic 43–81
[2022-08-31] MEDS: MORPHINE SULFATE 4 MG/ML SYR IVP PRN (00:27)
[2022-08-31] MEDS: LORazepam 2 MG/ML VIAL IVP PRN (01:33)
[2022-08-31] MEDS: DEXMEDETOMIDINE HCL 400 MCG in NACL 0.9% 96 ML IV PRN ×3 (04:32→18:13)
[2022-08-31] MEDS: BLOOD GLUCOSE MONITORING 1 DEV DEV FS SCH ×5 (06:00→18:01)
--- NOTE | 2022-08-31 06:00 | NUR ---
Pt. agitated and uncooperative with care when Precedex Drip titrated down. Dr. Justin contacted for HR>[address] with frequent PVCs with no response. Dr. Magana made aware with orders to keep pt. sedated on Precedex Drip @ this time; Precedex titrated up until HR<110 bpm (0.5) @ this time. Pt. .on O2 2lpm via NC with T0Qtz=78 to 97% @ this time. CHG bath done. Assisted with needs prn. Frequent rounds done and safety monitored closely. No falls or injuries noted this shift. Will cont. to monitor.
[2022-08-31 06:03] LABS: BASOPHILS # (AUTO) 0.2 K/uL (0.00-0.22); BASOPHILS % (AUTO) 1.4 % (0.0-2.0); EOSINOPHILS # (AUTO) 0.2 K/uL (0-0.4); HEMATOCRIT 43.7 % (36-48); HEMOGLOBIN 13.5 g/dL (12.0-16.0); LYMPHOCYTES % (AUTO) 22.8 % (20.5-51.1); MEAN CORPUSCULAR HEMOGLOBIN 27 pg (27-31); MEAN CORPUSCULAR HGB CONC 31 g/dL (33-37); MEAN CORPUSCULAR VOLUME 87.7 fL (80-94); MONOCYTES # (AUTO) 1.7 K/uL (0.8-1.0); NEUTROPHILS # (AUTO) 11.4 K/uL (1.8-7.7); NEUTROPHILS % (AUTO) 64.9 % (42.2-75.2); PLATELET COUNT (AUTO) 328 K/uL (140-450); RED BLOOD CELL COUNT(AUTO) 4.98 MIL/uL (4.20-5.40); RED CELL DISTRIBUTION WIDTH 15.7 % (11.6-13.7); WHITE BLOOD COUNT (AUTO) 17.6 K/uL (4.8-10.8)
[2022-08-31 06:19] LABS: CARBON DIOXIDE 26.6 mmol/L (21-32); CREATININE 1.2 mg/dL (0.6-1.3); POTASSIUM 3.6 mmol/L (3.5-5.1)
[2022-08-31 07:12] LABS: MONOCYTES % (AUTO) 9.9 % (1.7-9.3)
--- NOTE | 2022-08-31 07:15 | NUR ---
RECEIVED BEDSIDE REPORT FROM SILVICULTURE FORESTER SEPTEMBER RN FOR CONTINUITY OF CARE. PT AWAKE, ALOC, FOLLOW SIMPLE COMMAND. ABLE TO MAKE NEEDS KNOWN. ST ON MONITOR. ABLE TO MOVE EXTREMITIES SLIGHTLY. NC, 2L, NO S/S OF ACUTE RESPIRATORY DISTRESS. PICC TO EMELY INFUSING PRECEDEX AT 0.5 MCG/KG/HR. MECHANICAL SOFT DIET. RECTAL TUBE IN PLACE DRAINING LIQUID GREENISH BROWN STOOL. F/C IN PLACE TO GRAVITY. BED LOCKED AND IN LOWEST POSITION. WILL CONTINUE TO MONITOR.
[2022-08-31] MEDS: INSULIN LISPRO SLIDING SCALE 100 UNITS/ML VIAL SUBQ PRN ×2 (07:32→12:22)
[2022-08-31] MEDS: MAG SULF 2000 MG/WATER PREMIX 50 ML IV PRN (07:59)
[2022-08-31] MEDS: FUROSEMIDE 40 MG/4 ML VIAL IVP SCH ×2 (08:10→21:54)
[2022-08-31] MEDS: PANTOPRAZOLE 40 MG INJ VIAL IVP SCH (08:10)
[2022-08-31] MEDS: MAGNESIUM OXIDE 400 MG TAB GT SCH (08:11)
[2022-08-31] MEDS: QUEtiapine FUMARATE 25 MG TAB NG SCH (08:11)
[2022-08-31] MEDS: COMMUNICATION ORDER MC SCH (08:11)
--- NOTE | 2022-08-31 10:45 | NUR ---
DR MACIEL RAMÍREZ AT BEDSIDE. UPDATED PT INFORMATION. ORDER TO D/C ATIVAN AND SEROQUEL.
--- NOTE | 2022-08-31 11:50 | NUR ---
DR CLEANING ROUNDMASON AT BEDSIDE. UPDATED PT INFORMATION.
--- NOTE | 2022-08-31 17:12 | NUR ---
08/31/22 RD FOLLOW UP COMPLETED.PLEASE REFER TO NUTRITION ASSESSMENT UNDER CARE ACTIVITY FOR ESTIMATED NUTRITIONAL NEEDS. 1. RECOMMEND ADDING CCHO TO MECHANICAL SOFT DIET. WHEN/IF MEDICALLY APPROPRIATE, GRADUALLY ADVANCE TO CCHO DIET (REGULAR TEXTURE). 2. RECOMMEND GLUCERNA 1X/DAY TO OPTIMIZE NUTRITIONAL NEEDS. 3. MONITOR GI SYMPTOMS & PO INTAKE 4. RD TO FOLLOW-UP IN 3-5 DAYS PATIENT IS MODERATE RISK. ANN DELGADO RD
--- NOTE | 2022-08-31 19:30 | NUR ---
ENDORSED TO CUFF STITCHER SEPTEMBER RN FOR CONTINUITY OF CARE. ALL QUESTION ANSWERED.
[2022-09-01] VITALS (12 sets, daily range): BP systolic 94–118; BP diastolic 51–79
[2022-09-01] MEDS: INSULIN LISPRO SLIDING SCALE 100 UNITS/ML VIAL SUBQ PRN ×3 (00:57→18:33)
[2022-09-01] MEDS: DEXMEDETOMIDINE HCL 400 MCG in NACL 0.9% 96 ML IV PRN (03:17)
[2022-09-01 05:47] LABS: BASOPHILS # (AUTO) 0.1 K/uL (0.00-0.22); BASOPHILS % (AUTO) 1.2 % (0.0-2.0); EOSINOPHILS # (AUTO) 0.5 K/uL (0-0.4); EOSINOPHILS % (AUTO) 4.1 % (0.0-4.0); HEMOGLOBIN 13.1 g/dL (12.0-16.0); LYMPHOCYTES # (AUTO) 2.7 K/uL (2.5-16.5); LYMPHOCYTES % (AUTO) 23.9 % (20.5-51.1); MEAN CORPUSCULAR HEMOGLOBIN 27 pg (27-31); MEAN CORPUSCULAR HGB CONC 31 g/dL (33-37); MEAN CORPUSCULAR VOLUME 87.6 fL (80-94); MONOCYTES # (AUTO) 1.5 K/uL (0.8-1.0); NEUTROPHILS # (AUTO) 6.5 K/uL (1.8-7.7); NEUTROPHILS % (AUTO) 57.8 % (42.2-75.2); PLATELET COUNT (AUTO) 315 K/uL (140-450); RED CELL DISTRIBUTION WIDTH 15.2 % (11.6-13.7); WHITE BLOOD COUNT (AUTO) 11.3 K/uL (4.8-10.8)
[2022-09-01] MEDS: BLOOD GLUCOSE MONITORING 1 DEV DEV FS SCH ×3 (06:00→18:27)
--- NOTE | 2022-09-01 06:00 | NUR ---
Pt. is calm and cooperative with care on Precedex Drip titrated down to 0.3 mcg. SR on the scope. VSS. No c/o pain or SOB on O2 4lpm via NC. Will cont. to monitor.
[2022-09-01 06:09] LABS: ANION GAP 12.2 (8-16); CARBON DIOXIDE 30.7 mmol/L (21-32); CREATININE 1.1 mg/dL (0.6-1.3); POTASSIUM 3.9 mmol/L (3.5-5.1)
--- NOTE | 2022-09-01 07:34 | NUR ---
got report from the night nurse discussed poc with rui
--- NOTE | 2022-09-01 07:43 | NUR ---
PT IS UP, ALERT AND EATING HER BREAKFAST WITH RN YADI. . NO DISTRESS NOTED. FOUND PT ON 4L NC WITH SPO2 99%. RT TITRATED TO 3L NC. HR 68 SPO2 97% WILL CONTINUE TO MONITOR. A BUBBLE HUMIDIFIER IS ATTACHED INCASE RN NEEDS TO INCREASE O2.
[2022-09-01] MEDS: MAGNESIUM OXIDE 400 MG TAB GT SCH (08:13)
[2022-09-01] MEDS: FUROSEMIDE 40 MG/4 ML VIAL IVP SCH ×2 (08:13→20:54)
[2022-09-01] MEDS: PANTOPRAZOLE 40 MG INJ VIAL IVP SCH (08:15)
[2022-09-01] MEDS: COMMUNICATION ORDER MC SCH (08:18)
[2022-09-01] MEDS ORDERED: ALTEPLASE 2 MG VIAL MC SCH (09:30)
--- NOTE | 2022-09-01 10:08 | NUR ---
AM CARE IS DONE, BRUSHED TEETH , PT ATE 50% OF THE BREAKFAST. MED GIVEN ORDERED .[id number]
--- NOTE | 2022-09-01 19:26 | NUR ---
PT RESTING IN BED, NO SIGNS OF DISTRESS. GAVE REPORT TO NIGHTSHIFT NURSE.
--- NOTE | 2022-09-01 20:50 | NUR ---
ADMINISTERED SCHEDULED MEDICATIONS ORDERED.
--- NOTE | 2022-09-01 22:25 | NUR ---
PATIENT RESTING IN BED IN NO ACUTE DISTRESS NOTED. BREATHING REGULAR NON LABORED. ROBLES CATHETER DRAINING CLEAR YELLOW URINE. RECTAL TUBE LEAKING, FIXED. NO COMPLAINTS OF PAIN OR ANY DISCOMFORT AT THIS TIME. NEEDS ATTENDED TO. SAFETY MEASURES IN PLACE. CALL LIGHT WITHIN REACH.
[2022-09-02] VITALS: BP 98/64
[2022-09-02] MEDS: BLOOD GLUCOSE MONITORING 1 DEV DEV FS SCH ×5 (00:15→23:54)
[2022-09-02] MEDS: INSULIN LISPRO SLIDING SCALE 100 UNITS/ML VIAL SUBQ PRN ×2 (00:16→23:54)
[2022-09-02] MEDS ORDERED: ONDANSETRON 4 MG/2 ML VIAL IVP PRN (00:35)
[2022-09-02 04:00] VITALS: BP 104/73
[2022-09-02 05:48] LABS: BASOPHILS # (AUTO) 0.2 K/uL (0.00-0.22); BASOPHILS % (AUTO) 1.2 % (0.0-2.0); EOSINOPHILS # (AUTO) 0.2 K/uL (0-0.4); EOSINOPHILS % (AUTO) 1.4 % (0.0-4.0); HEMATOCRIT 42.4 % (36-48); HEMOGLOBIN 13.4 g/dL (12.0-16.0); LYMPHOCYTES # (AUTO) 3.8 K/uL (2.5-16.5); LYMPHOCYTES % (AUTO) 25.1 % (20.5-51.1); MEAN CORPUSCULAR HEMOGLOBIN 27 pg (27-31); MEAN CORPUSCULAR HGB CONC 32 g/dL (33-37); MEAN CORPUSCULAR VOLUME 86.6 fL (80-94); MONOCYTES # (AUTO) 1.3 K/uL (0.8-1.0); MONOCYTES % (AUTO) 8.9 % (1.7-9.3); NEUTROPHILS # (AUTO) 9.5 K/uL (1.8-7.7); NEUTROPHILS % (AUTO) 63.4 % (42.2-75.2); PLATELET COUNT (AUTO) 340 K/uL (140-450); RED CELL DISTRIBUTION WIDTH 15.7 % (11.6-13.7)
[2022-09-02 06:09] LABS: ANION GAP 14.9 (8-16); CARBON DIOXIDE 27.6 mmol/L (21-32); CREATININE 1.2 mg/dL (0.6-1.3); POTASSIUM 3.5 mmol/L (3.5-5.1)
--- NOTE | 2022-09-02 07:29 | NUR ---
ENDORSED PATIENT TO DAY SHIFT NURSE FOR CONTINUITY OF CARE.
--- NOTE | 2022-09-02 07:30 | NUR ---
RECEIVED REPORT FROM NIGHTSHIFT NURSE. PT RESTING IN BED, NO SIGNS OF DISTRESS. ON 3L NC. BED IN LOWEST POSITION, CALL LIGHT WITHIN REACH.
[2022-09-02 08:00] VITALS: BP 143/86
[2022-09-02] MEDS: PANTOPRAZOLE 40 MG INJ VIAL IVP SCH (08:43)
[2022-09-02] MEDS: FUROSEMIDE 40 MG/4 ML VIAL IVP SCH (08:44)
[2022-09-02] MEDS: MAGNESIUM OXIDE 400 MG TAB GT SCH (08:44)
[2022-09-02] MEDS: COMMUNICATION ORDER MC SCH (09:00)
[2022-09-02 12:00] VITALS: BP 123/77
--- NOTE | 2022-09-02 12:00 | NUR ---
PT WBC AT 15, MD INFORMED. NO NEW ORDERS AT THIS TIME. PT IS ASLEEP IN BED, NO SIGNS OF DISTRESS. TEMP: 97.7, P: 105, BP: 123/77, RR: 16, O2: 97%
[2022-09-02 16:00] VITALS: BP 118/64
[2022-09-02 20:00] VITALS: BP 110/67
--- NOTE | 2022-09-02 20:30 | NUR ---
PATIENT AWAKE ON O2 3L NC TOLERATING WELL SATING 96%. NO SOB NOTED. DENIES PAIN. CALL LIGHT WITHIN REACH. ALL SAFETY PRECAUTIONS ARE IN PLACE. ROBLES CATHETER DRAINING WELL. RECTAL TUBE IN PLACE. PATIENT NEEDS ATTENDED TO.
--- NOTE | 2022-09-02 21:01 | NUR ---
PATIENT REFUSED HEPARIN. EXPLAINED THE RISKS AND BENEFITS WITH UNDERSTANDING BUT STILL REFUSED.
[2022-09-03] VITALS: BP 110/60
[2022-09-03 04:00] VITALS: BP 121/78
[2022-09-03] MEDS: BLOOD GLUCOSE MONITORING 1 DEV DEV FS SCH ×3 (05:55→16:51)
--- NOTE | 2022-09-03 05:56 | NUR ---
CHECKED BLOOD SUGAR WAS 164, PATIENT REFUSED INSULIN COVERAGE.
--- NOTE | 2022-09-03 07:25 | NUR ---
GAVE REPORT TO DAY SHIFT NURSE FOR CONTINUITY OF CARE.
--- NOTE | 2022-09-03 07:39 | NUR ---
GOT REPORT FROM THE NIGHT NURSE, PT AWAKE DISCUSSED POC [id number]
[2022-09-03 08:00] VITALS: BP 133/67
[2022-09-03] MEDS: FUROSEMIDE 40 MG/4 ML VIAL IVP SCH (08:46)
[2022-09-03] MEDS: MAGNESIUM OXIDE 400 MG TAB GT SCH (08:47)
[2022-09-03] MEDS: PANTOPRAZOLE 40 MG INJ VIAL IVP SCH (08:49)
[2022-09-03] MEDS: COMMUNICATION ORDER MC SCH (08:52)
[2022-09-03 12:00] VITALS: BP 98/64
[2022-09-03] MEDS: INSULIN LISPRO SLIDING SCALE 100 UNITS/ML VIAL SUBQ PRN ×2 (12:12→16:56)
--- NOTE | 2022-09-03 15:28 | NUR ---
NOTICED AT THE MID BACK OF PATIENT THERE WAS A BLESTER BUT NOW IT OPENED UP CONTINUE TO MONITOR.[id number]
[2022-09-03 16:00] VITALS: BP 125/65
--- NOTE | 2022-09-03 16:00 | NUR ---
PT SEEMS AT A TIME CONFUSED. AWAKE NO PAIN RECTAL TUBE AND ROBLES CATH. DRAINING.[id number]
--- NOTE | 2022-09-03 16:32 | NUR ---
LOGAN WHALEN RECEIVED OPDER FOR PT TO GO TO SNF FOR PHYSICAL THERAPY. FAXED TO THE FOLLOWING FACILITIES:[facility], [facility], [facility], [facility], [facility] , AND [facility]. PT WAS DECLINED BY THE FOLLOWING FACILITIES: [facility], [facility], [facility], [facility], [facility]. RECEIVED A CALL FROM HEATHER AT [facility] LOCATED AT [address] [phone], PT WAS ACCEPTED BUT THEY DON'T HAVE A BED TONIGHT BUT THEY WILL BE ABLE TO TAKE PT TOMORROW 09/04/2022. HEATHER IS WORKING ON GETTING AUTH FOR PT. WILL FOLLOW UP TOMORROW FOR ROOM #, ACCEPTING DOCTOR AND WITH TRANSPORT.
--- NOTE | 2022-09-03 19:28 | NUR ---
given report to the night nurse [email or web address]
--- NOTE | 2022-09-03 19:30 | NUR ---
RECEIVED PT FROM AM NURSE FOR CONTINUITY OF CARE. PT IS STABLE
[2022-09-03 19:59] LABS: ALBUMIN 3.1 g/dL (3.4-5.0); ANION GAP 13.5 (8-16); CARBON DIOXIDE 26.7 mmol/L (21-32); CREATININE 1.2 mg/dL (0.6-1.3); POTASSIUM 4.2 mmol/L (3.5-5.1); TOTAL BILIRUBIN 0.8 mg/dL (0.0-1.0)
[2022-09-03 20:00] VITALS: BP 130/66
[2022-09-03 20:03] LABS: BASOPHILS # (AUTO) 0.1 K/uL (0.00-0.22); EOSINOPHILS # (AUTO) 0.5 K/uL (0-0.4); EOSINOPHILS % (AUTO) 4.1 % (0.0-4.0); HEMATOCRIT 46.5 % (36-48); HEMOGLOBIN 14.8 g/dL (12.0-16.0); LYMPHOCYTES # (AUTO) 3.5 K/uL (2.5-16.5); LYMPHOCYTES % (AUTO) 27.6 % (20.5-51.1); MEAN CORPUSCULAR HEMOGLOBIN 28 pg (27-31); MEAN CORPUSCULAR HGB CONC 32 g/dL (33-37); MEAN CORPUSCULAR VOLUME 87.3 fL (80-94); MONOCYTES # (AUTO) 1.5 K/uL (0.8-1.0); MONOCYTES % (AUTO) 11.7 % (1.7-9.3); NEUTROPHILS % (AUTO) 55.6 % (42.2-75.2); PLATELET COUNT (AUTO) 226 K/uL (140-450); RED BLOOD CELL COUNT(AUTO) 5.33 MIL/uL (4.20-5.40); RED CELL DISTRIBUTION WIDTH 15.9 % (11.6-13.7); WHITE BLOOD COUNT (AUTO) 12.5 K/uL (4.8-10.8)
[2022-09-04] VITALS: BP 128/70
[2022-09-04] MEDS: INSULIN LISPRO SLIDING SCALE 100 UNITS/ML VIAL SUBQ PRN ×3 (00:18→17:49)
[2022-09-04] MEDS: BLOOD GLUCOSE MONITORING 1 DEV DEV FS SCH ×4 (00:20→17:17)
[2022-09-04 04:00] VITALS: BP 134/69
--- NOTE | 2022-09-04 06:45 | NUR ---
PATIENT REFUSED 2 UNITS OF INSULIN FOR BLD GLUCOSE 190
[2022-09-04 08:00] VITALS: BP 123/66
[2022-09-04] MEDS: COMMUNICATION ORDER MC SCH (09:00)
[2022-09-04] MEDS: FUROSEMIDE 40 MG/4 ML VIAL IVP SCH (09:49)
[2022-09-04] MEDS: PANTOPRAZOLE 40 MG INJ VIAL IVP SCH (09:50)
[2022-09-04] MEDS: MAGNESIUM OXIDE 400 MG TAB GT SCH (09:52)
[2022-09-04 16:00] VITALS: BP 122/76
--- NOTE | 2022-09-04 16:23 | NUR ---
LOGAN WHALEN RECEIVED ORDER FOR PT TO GO TO SNF FOR PT. FAXED TO THE FOLLOWING FACILITY: [place], [facility], [facility], [facility] , [facility], [facility], [facility], AND [facility]. RECEIVED A CALL FROM HEATHER AT [facility] LOCATED AT [address] [phone]. PT WAS ACCEPTED OF BUT THEY WOULDN'T BE ABLE TO TAKE HER UNTIL THE FOLLOWING DAY 09/04/2022. FAXED TO [facility] 09/03/2022, AND TRIED TO GET A HOLD OF THE PADMA ALL DAY.WAS FINALLY ABLE TO GET A HOLD OF PADMA STANLEY AT SHE REQUESTED WE FAX AGAIN 09/04/2022 INFORMED HE OF THE ACCEPTING FACILITY AND SHE SAID SHE WOULD GET BACK TO ME WITH THE AUTH THAT SHE WAS JUST WAITING FOR APPROVAL. CALLED BACK ABOUT 6 TIME WITH NO ANSWER AND A MESSAGE WAS LEFT. 1641 GOT A HOLD OF LIZETH WHO SAID THAT THE DR STILL HASN'T REPLIED THAT SHE WAS ROSA CALL HIM TO GET AN ANSWER AND WITH INFORM ME OF WHAT HE SAYS. Addendum: 09/04/22 at 1655 by GUTIERREZ HILL CM LOGAN WHALEN RECEIVED CALL FROM JAYNA ROUSE AT [facility] SHE SAID THAT MOST LIKELY IF PT DOESN'T PARTICIPATE IN PT THEN WILL PROBABLY BE DENIED.SO WE SENT NIR TO SEE IF SHE CAN WORK WITH HER.
--- NOTE | 2022-09-04 17:48 | NUR ---
PHYSICAL THERAPY CO-SIGN The Physical Therapy Progress Notes documented by Mechanical Operator have been reviewed. Reviewed/Co-Signed by: Gin Hutson PT Documentation Done by:CODEY FLETCHER TRANSPORT TECHNICIAN Addendum: 09/04/22 at 1748 by Gin Hutson PT Amended: Links added.
--- NOTE | 2022-09-04 19:30 | NUR ---
RECEIVED PATIENT FROM AM NURSE FOR CONTINUITY OF CARE. PT IS STABLE
[2022-09-04 20:00] VITALS: BP 115/65
[2022-09-05] VITALS (7 sets, daily range): BP systolic 101–131; BP diastolic 63–69
[2022-09-05] MEDS: BLOOD GLUCOSE MONITORING 1 DEV DEV FS SCH ×4 (00:16→17:11)
--- NOTE | 2022-09-05 07:08 | NUR ---
receive the patinet from the night guard rn in rm [id number] with admitiing diagnosis of hyponatremia . will continue to monitor
[2022-09-05] MEDS: FUROSEMIDE 40 MG/4 ML VIAL IVP SCH (08:54)
[2022-09-05] MEDS: MAGNESIUM OXIDE 400 MG TAB GT SCH (08:54)
[2022-09-05] MEDS: PANTOPRAZOLE 40 MG INJ VIAL IVP SCH (08:56)
[2022-09-05] MEDS: COMMUNICATION ORDER MC SCH (08:57)
[2022-09-05] MEDS: INSULIN LISPRO SLIDING SCALE 100 UNITS/ML VIAL SUBQ PRN (13:36)
--- NOTE | 2022-09-05 15:03 | NUR ---
LOGAN CASPER RECEIVED SNF AUTH#[id number] [facility] AUTH#[id number] FROM [facility] [place] . SPOKE WITH HEATHER PT WAS ACCEPTED AT [facility] LOCATED AT [address] [phone]. PT WILL BE GOING TO ROOM 22A UNDER DR. ROBBINS TRANSPORTATION WITH O2 WAS SET UP WITH [facility] WITH A [address] [place] MAINTENANCE TIME. NURSE CARD AND SISTER KIYA AWARE OF THE ABOVE INFORMATION.
--- NOTE | 2022-09-05 15:23 | NUR ---
09/05/22 RD FOLLOW UP COMPLETED PLEASE REFER TO NUTRITION ASSESSMENT UNDER CARE ACTIVITY FOR ESTIMATED NUTRITIONAL NEEDS. 1. CONTINUE CCHO 60 G MECHANICAL SOFT DIET, TOLERATED 2. RECOMMEND GLUCERNA BID 3. RECOMMEND BANATROL TID FOR DIARRHEA UNTIL SYMPTOMS RESOLVED 4. MONITOR GI SYMPTOMS AND NUTRITION RELATED LAB VALUES 5. RD TO FOLLOW-UP 3-5 DAYS, MODERATE RISK REVIEWED BY KANU BEATTY RD
--- NOTE | 2022-09-05 18:10 | NUR ---
talked with the ralatives re the transfer of the patinet to [facility] as the choice of retirement facility . it depends on the qualified insurance , plan of care of he patient. the director of casework department also spoke with florentin rivera for approval
--- NOTE | 2022-09-05 18:50 | NUR ---
will endorse to retail shift supervisor rn for continuity of care . for possible [facility] to [facility] at 20:30 pm
--- NOTE | 2022-09-05 19:30 | NUR ---
RECEIVED PT IN BED ASLEEP, EASILY AROUSABLE BY VERBAL STIMULI. DENIES PAIN. NO ACUTE RESPIRATORY DISTRESS NOTED. SKIN WARM AND DRY TO TOUCH. SAFETY PRECAUTIONS IN PLACE.
--- NOTE | 2022-09-05 20:55 | NUR ---
REPORT GIVEN TO PARAMEDICS, DISCHARGE PAPERS PROVIDED. REMOVED PICC LINE, ROBLES CATHETER AND RECTAL TUBE ENDORSED BY AM RN. BIBLE AND CELLPHONE GIVEN TO PARAMEDICS PT'S BELONGINGS. PATIENT IN STABLE CONDITION.
== END 2022-09-05 20:55 | DRG 207 ==
LOC: MED 13:20 → MTU 17:42 → MIC 18:31 → MTU 09-01 10:50
PROVIDERS: ADMIT Student in an Organized Health Care Education/Training Program; ATTEND Student in an Organized Health Care Education/Training Program
PROC: 5A1955Z Respiratory Ventilation, Greater than 96 Consecutive Hours (ICD-10-PCS; principal; 2022-08-12)
PROC: 0BH18EZ Insertion of Endotracheal Airway into Trachea, Via Natural or Artificial Opening Endoscopic (ICD-10-PCS; 2022-08-12)
PROC: 5A09357 Assistance with Respiratory Ventilation, Less than 24 Consecutive Hours, Continuous Positive Airway Pressure (ICD-10-PCS; 2022-08-12)
PROC: 0D9670Z Drainage of Stomach with Drainage Device, Via Natural or Artificial Opening (ICD-10-PCS; 2022-08-12)
PROC: 02HV33Z Insertion of Infusion Device into Superior Vena Cava, Percutaneous Approach (ICD-10-PCS; 2022-08-13)
PROC: B548ZZA Ultrasonography of Superior Vena Cava, Guidance (ICD-10-PCS; 2022-08-13)
PROC: 5A09357 Assistance with Respiratory Ventilation, Less than 24 Consecutive Hours, Continuous Positive Airway Pressure (ICD-10-PCS; 2022-08-28)
PROC: 5A09357 Assistance with Respiratory Ventilation, Less than 24 Consecutive Hours, Continuous Positive Airway Pressure (ICD-10-PCS; 2022-08-29)
DX: J96.02 Acute respiratory failure with hypercapnia (principal); J69.0 Pneumonitis due to inhalation of food and vomit; E43 Unspecified severe protein-calorie malnutrition; G93.41 Metabolic encephalopathy; E87.1 Hypo-osmolality and hyponatremia; E87.20 Acidosis, unspecified; Z68.41 Body mass index [BMI] 40.0-44.9, adult; I42.9 Cardiomyopathy, unspecified; N17.9 Acute kidney failure, unspecified; J96.01 Acute respiratory failure with hypoxia; E78.5 Hyperlipidemia, unspecified; G89.29 Other chronic pain; E66.01 Morbid (severe) obesity due to excess calories; E87.6 Hypokalemia; E83.42 Hypomagnesemia; I27.20 Pulmonary hypertension, unspecified; R00.1 Bradycardia, unspecified; E11.65 Type 2 diabetes mellitus with hyperglycemia; Z66 Do not resuscitate; I11.0 Hypertensive heart disease with heart failure; I50.9 Heart failure, unspecified; Z20.822 Contact with and (suspected) exposure to COVID-19; Z88.8 Allergy status to other drugs, medicaments and biological substances; Z79.899 Other long term (current) drug therapy; Z79.891 Long term (current) use of opiate analgesic
CPT/HCPCS: 31500; 36415; 36600; 70450; 71045; 80048; 80053; 80305; 82150; 82803; 82948; 83605; 83690; 83735; 83880; 83935; 84100; 84300; 84443; 84484; 85025; 85610; 85730; 87040; 87045; 87070; 87081; 87086; 87205; 89055; 89220; 94002; 94003; 97110; 97112; 97163-GP; 97530; 99291; C9113; J0171; J0456; J0696; J1265; J1644; J1940; J2060; J2250; J2270; J2310; J2543; J2704; J2997; J3010; J3475; J3490; J7030; J7060; Q0092

== ENCOUNTER 2023-02-24 11:15 | Inpatient (IN) | payer MEDICARE, MEDICAID ==
[~2023-02-24] VITALS: Ht 172.7 cm; Wt 94.8 kg
[2023-02-24] VITALS (11 sets, daily range): BP systolic 64–103; BP diastolic 37–69; PULSE 86–112; RESP 13–22; TEMP 97.5–98.2; O2SAT 89–98
[~2023-02-24 11:15] MED LIST changes: -CEPH500C16 PO; +LISI20TA29 PO; +METF-713 PO
[2023-02-24] MEDS ORDERED: NACL 0.9% 2,000 ML IV SCH (11:25)
[2023-02-24 11:52] LABS: BASOPHILS # (AUTO) 0.1 K/uL (0.00-0.22); EOSINOPHILS # (AUTO) 0.1 K/uL (0-0.4); EOSINOPHILS % (AUTO) 1.1 % (0.0-4.0); HEMOGLOBIN 11.3 g/dL (12.0-16.0); LYMPHOCYTES # (AUTO) 2.8 K/uL (2.5-16.5); LYMPHOCYTES % (AUTO) 22.8 % (20.5-51.1); MEAN CORPUSCULAR HEMOGLOBIN 28 pg (27-31); MEAN CORPUSCULAR HGB CONC 31 g/dL (33-37); MEAN CORPUSCULAR VOLUME 88.9 fL (80-94); MONOCYTES # (AUTO) 1.5 K/uL (0.8-1.0); MONOCYTES % (AUTO) 12.2 % (1.7-9.3); NEUTROPHILS # (AUTO) 7.7 K/uL (1.8-7.7); NEUTROPHILS % (AUTO) 62.9 % (42.2-75.2); PLATELET COUNT (AUTO) 280 K/uL (140-450); RED BLOOD CELL COUNT(AUTO) 4.05 MIL/uL (4.20-5.40); RED CELL DISTRIBUTION WIDTH 14.7 % (11.6-13.7); WHITE BLOOD COUNT (AUTO) 12.2 K/uL (4.8-10.8)
[2023-02-24 12:27] LABS: ALBUMIN 3.2 g/dL (3.4-5.0); CALCIUM 8.8 mg/dL (8.5-10.1); CARBON DIOXIDE 22.2 mmol/L (21-32); INR 1.09 (0.8-1.2); PARTIAL THROMBOPLASTIN TIME 27.9 secs (22-35.6); PROTHROMBIN TIME 11.4 secs (10.8-13.4); TOTAL BILIRUBIN 0.4 mg/dL (0.0-1.0); TOTAL PROTEIN, SERUM 7.4 g/dL (6.4-8.2)
[2023-02-24 12:28] LABS: POTASSIUM 6.2 mmol/L (3.5-5.1)
[2023-02-24 12:30] LABS: LACTIC ACID 1.9 mmol/L (0.4-2.0)
[2023-02-24 12:54] LABS: APPEARANCE,URINE CLEAR (CLEAR); BILIRUBIN,URINE NEGATIVE (NEGATIVE); BLOOD, URINE NEGATIVE (NEGATIVE); COLOR,URINE YELLOW (YELLOW); LEUKOCYTE ESTERASE ,URINE NEGATIVE (NEGATIVE); NITRITE, URINE NEGATIVE (NEGATIVE); PH,URINE 5.5 (5.0-9.0); PROTEIN,URINE TRACE (NEGATIVE); UGLUCOSE NEGATIVE (NEGATIVE); UROBILINOGEN,URINE 0.2 EU/dL (0.2 - 1)
[2023-02-24] MEDS ORDERED: CALCIUM GLUCONATE 10% 1,000 MG in NACL 0.9% 50 ML IV ONE (13:00)
[2023-02-24] MEDS ORDERED: INSULIN REGULAR, HUMAN 100 UNIT/ML VIAL SUBQ ONE (13:00)
[2023-02-24] MEDS ORDERED: ALBUTEROL 0.083% 2.5 MG/3 ML NEBU INH ONE (13:00)
[2023-02-24] MEDS ORDERED: DEXTROSE 50% 50 ML SYR IVP ONE (13:10)
[2023-02-24] MEDS ORDERED: CALCIUM GLUC 1 GM/50 mL NS BAG 50 ML IV ONE (13:14)
[2023-02-24 13:29] LABS: CREATINE KINASE, TOTAL 1189 U/L (26-192)
[2023-02-24] MEDS ORDERED: MAG SULF 2000 MG/WATER PREMIX 50 ML IV PRN (15:15)
[2023-02-24] MEDS ORDERED: ACETAMINOPHEN 325 MG TAB PO PRN (15:15)
[2023-02-24] MEDS ORDERED: KCL 20 MEQ IN 100 mL PREMIX 200 ML IV PRN (15:15)
[2023-02-24] MEDS ORDERED: MAGNESIUM OXIDE 400 MG TAB PO PRN (15:15)
[2023-02-24] MEDS ORDERED: ONDANSETRON 4 MG/2 ML VIAL IVP PRN (15:15)
[2023-02-24] MEDS ORDERED: POTASSIUM CHLORIDE 10 MEQ TABER PO PRN (15:15)
[2023-02-24] MEDS ORDERED: CALCIUM GLUC 1 GM/50 mL NS BAG 50 ML IV SCH (16:36)
[2023-02-24] MEDS: FUROSEMIDE 40 MG/4 ML VIAL IVP SCH (17:00)
[2023-02-24] MEDS ORDERED: NOREPINEPHRINE 4 MG/4 ML VIAL IV ONE (18:07)
[2023-02-24] MEDS: NOREPINEPHRINE 4 MG in DEXTROSE 5% 250 ML IV PRN ×2 (18:19→18:33)
[2023-02-24] MEDS: SODIUM ZIRCONIUM CYCLOSILICATE 10 GM POWD.PACK PO SCH (21:00)
[2023-02-25] VITALS (27 sets, daily range): BP systolic 103–150; BP diastolic 58–87; PULSE 72–110; RESP 14–22; TEMP 97–98.1; O2SAT 90–98
[2023-02-25 05:36] LABS: BASOPHILS # (AUTO) 0.1 K/uL (0.00-0.22); BASOPHILS % (AUTO) 0.7 % (0.0-2.0); EOSINOPHILS # (AUTO) 0.4 K/uL (0-0.4); EOSINOPHILS % (AUTO) 3.6 % (0.0-4.0); HEMOGLOBIN 11.5 g/dL (12.0-16.0); LYMPHOCYTES # (AUTO) 2.6 K/uL (2.5-16.5); MEAN CORPUSCULAR HEMOGLOBIN 28 pg (27-31); MEAN CORPUSCULAR HGB CONC 31 g/dL (33-37); MEAN CORPUSCULAR VOLUME 89.4 fL (80-94); MONOCYTES # (AUTO) 1.4 K/uL (0.8-1.0); MONOCYTES % (AUTO) 11.6 % (1.7-9.3); NEUTROPHILS # (AUTO) 7.9 K/uL (1.8-7.7); NEUTROPHILS % (AUTO) 63.1 % (42.2-75.2); PLATELET COUNT (AUTO) 249 K/uL (140-450); RED BLOOD CELL COUNT(AUTO) 4.13 MIL/uL (4.20-5.40); RED CELL DISTRIBUTION WIDTH 14.8 % (11.6-13.7); WHITE BLOOD COUNT (AUTO) 12.5 K/uL (4.8-10.8)
[2023-02-25 06:02] LABS: ANION GAP 13.6 (8-16); CALCIUM 8.8 mg/dL (8.5-10.1); CARBON DIOXIDE 24.5 mmol/L (21-32); CREATININE 2.9 mg/dL (0.6-1.3)
[2023-02-25 06:04] LABS: MAGNESIUM 1.9 mg/dL (1.8-2.4); PHOSPHORUS 5.2 mg/dL (2.5-4.9)
[2023-02-25 06:06] LABS: POTASSIUM 6.1 mmol/L (3.5-5.1)
[2023-02-25] MEDS: SODIUM ZIRCONIUM CYCLOSILICATE 10 GM POWD.PACK PO SCH (06:17)
[2023-02-25] MEDS: FUROSEMIDE 40 MG/4 ML VIAL IVP SCH ×2 (09:44→17:40)
[2023-02-25 15:52] LABS: ANION GAP 10.1 (8-16); CALCIUM 8.8 mg/dL (8.5-10.1); CREATININE 2.3 mg/dL (0.6-1.3)
[2023-02-25 15:59] LABS: POTASSIUM 6.1 mmol/L (3.5-5.1)
[2023-02-25] MEDS ORDERED: SODIUM POLYSTYRENE 15 GM/60 ML UDBTL PO ONE (16:15)
[2023-02-25] MEDS ORDERED: SODIUM POLYSTYRENE 15 GM/60 ML UDBTL PO SCH (16:48)
[2023-02-25] MEDS: hydrALAZINE 10 MG TAB PO SCH (20:52)
[2023-02-25] MEDS: HYDROcodone/APAP 5/325 MG 1 TAB TAB PO PRN (20:52)
[2023-02-25] MEDS: ISOSORBIDE DINITRATE 10 MG TAB PO SCH (21:57)
[2023-02-26] VITALS (8 sets, daily range): BP systolic 90–145; BP diastolic 48–90; PULSE 91–119; RESP 18; TEMP 97.1–98.1; O2SAT 87–97
[2023-02-26] MEDS: ISOSORBIDE DINITRATE 10 MG TAB PO SCH ×3 (05:00→20:14)
[2023-02-26] MEDS: hydrALAZINE 10 MG TAB PO SCH ×3 (05:12→20:14)
[2023-02-26] MEDS: HYDROcodone/APAP 5/325 MG 1 TAB TAB PO PRN ×4 (05:12→21:19)
[2023-02-26 06:11] LABS: BASOPHILS % (AUTO) 0.3 % (0.0-2.0); EOSINOPHILS # (AUTO) 0.6 K/uL (0-0.4); EOSINOPHILS % (AUTO) 4.6 % (0.0-4.0); HEMATOCRIT 33.5 % (36-48); HEMOGLOBIN 10.7 g/dL (12.0-16.0); LYMPHOCYTES # (AUTO) 3.1 K/uL (2.5-16.5); LYMPHOCYTES % (AUTO) 25.8 % (20.5-51.1); MEAN CORPUSCULAR HEMOGLOBIN 28 pg (27-31); MEAN CORPUSCULAR HGB CONC 32 g/dL (33-37); MONOCYTES # (AUTO) 1.5 K/uL (0.8-1.0); MONOCYTES % (AUTO) 12.7 % (1.7-9.3); NEUTROPHILS # (AUTO) 6.9 K/uL (1.8-7.7); NEUTROPHILS % (AUTO) 56.6 % (42.2-75.2); PLATELET COUNT (AUTO) 261 K/uL (140-450); RED BLOOD CELL COUNT(AUTO) 3.85 MIL/uL (4.20-5.40); RED CELL DISTRIBUTION WIDTH 14.3 % (11.6-13.7); WHITE BLOOD COUNT (AUTO) 12.1 K/uL (4.8-10.8)
[2023-02-26 06:23] LABS: MAGNESIUM 1.5 mg/dL (1.8-2.4); PHOSPHORUS 2.8 mg/dL (2.5-4.9)
[2023-02-26 06:40] LABS: CALCIUM 8.4 mg/dL (8.5-10.1); CARBON DIOXIDE 25.9 mmol/L (21-32); CREATININE 1.8 mg/dL (0.6-1.3); POTASSIUM 4.9 mmol/L (3.5-5.1)
[2023-02-26] MEDS: FUROSEMIDE 40 MG/4 ML VIAL IVP SCH (08:50)
[2023-02-27 04:00] VITALS: BP 103/58; PULSE 89; RESP 16; TEMP 97.6; O2SAT 98
[2023-02-27] MEDS: ISOSORBIDE DINITRATE 10 MG TAB PO SCH ×2 (04:50→13:25)
[2023-02-27] MEDS: hydrALAZINE 10 MG TAB PO SCH ×2 (04:50→13:26)
[2023-02-27 08:00] VITALS: BP 112/53; PULSE 80; PULSE 83; RESP 18; TEMP 97.3; TEMP 97.5; O2SAT 94
[2023-02-27] MEDS ORDERED: FUROSEMIDE 40 MG/4 ML VIAL IVP SCH (09:00)
[2023-02-27 10:42] VITALS: O2SAT 94
[2023-02-27 13:02] LABS: BASOPHILS # (AUTO) 0.1 K/uL (0.00-0.22); BASOPHILS % (AUTO) 0.6 % (0.0-2.0); EOSINOPHILS # (AUTO) 0.4 K/uL (0-0.4); EOSINOPHILS % (AUTO) 4.7 % (0.0-4.0); HEMATOCRIT 36.6 % (36-48); HEMOGLOBIN 11.8 g/dL (12.0-16.0); LYMPHOCYTES # (AUTO) 2.4 K/uL (2.5-16.5); LYMPHOCYTES % (AUTO) 25.3 % (20.5-51.1); MEAN CORPUSCULAR HEMOGLOBIN 28 pg (27-31); MEAN CORPUSCULAR HGB CONC 32 g/dL (33-37); MEAN CORPUSCULAR VOLUME 86.3 fL (80-94); MONOCYTES # (AUTO) 1.2 K/uL (0.8-1.0); MONOCYTES % (AUTO) 12.7 % (1.7-9.3); NEUTROPHILS # (AUTO) 5.3 K/uL (1.8-7.7); NEUTROPHILS % (AUTO) 56.7 % (42.2-75.2); PLATELET COUNT (AUTO) 302 K/uL (140-450); RED BLOOD CELL COUNT(AUTO) 4.25 MIL/uL (4.20-5.40); RED CELL DISTRIBUTION WIDTH 14.3 % (11.6-13.7); WHITE BLOOD COUNT (AUTO) 9.4 K/uL (4.8-10.8)
[2023-02-27 13:11] LABS: ANION GAP 12.3 (8-16); CALCIUM 9.1 mg/dL (8.5-10.1); CARBON DIOXIDE 27.1 mmol/L (21-32); CREATININE 1.4 mg/dL (0.6-1.3); POTASSIUM 4.4 mmol/L (3.5-5.1)
[2023-02-27 13:13] LABS: MAGNESIUM 1.4 mg/dL (1.8-2.4); PHOSPHORUS 2.6 mg/dL (2.5-4.9)
[2023-02-27] MEDS: HYDROcodone/APAP 5/325 MG 1 TAB TAB PO PRN ×2 (13:26→17:57)
[2023-02-27] MEDS ORDERED: FURO40TA9 PO (16:25)
[2023-02-27] MEDS ORDERED: SILD20TA PO (16:25)
[2023-02-27] MEDS ORDERED: CARV3.12 PO (16:25)
[2023-02-27] MEDS ORDERED: SILDENAFIL 20 MG TAB PO SCH (17:00)
[2023-02-27 17:02] VITALS: BP 112/53; PULSE 83; RESP 18; TEMP 97.3
[2023-02-28] MEDS ORDERED: FUROSEMIDE 40 MG TAB PO SCH (09:00)
== END 2023-02-27 19:10 | disposition home health service (06) | DRG 280 ==
LOC: MED 11:15 → MTU 15:15 → MIC 17:58 → MTU 02-25 18:00
PROVIDERS: ADMIT Hospitalist; ATTEND Hospitalist
PROC: 5A09357 Assistance with Respiratory Ventilation, Less than 24 Consecutive Hours, Continuous Positive Airway Pressure (ICD-10-PCS; principal; 2023-02-24)
DX: I13.0 Hypertensive heart and chronic kidney disease with heart failure and stage 1 through stage 4 chronic kidney disease, or unspecified chronic kidney disease (principal); I21.4 Non-ST elevation (NSTEMI) myocardial infarction; I50.23 Acute on chronic systolic (congestive) heart failure; J96.01 Acute respiratory failure with hypoxia; R57.0 Cardiogenic shock; N17.0 Acute kidney failure with tubular necrosis; E66.2 Morbid (severe) obesity with alveolar hypoventilation; J96.12 Chronic respiratory failure with hypercapnia; N18.9 Chronic kidney disease, unspecified; E11.22 Type 2 diabetes mellitus with diabetic chronic kidney disease; E78.5 Hyperlipidemia, unspecified; J44.9 Chronic obstructive pulmonary disease, unspecified; E87.5 Hyperkalemia; Z88.8 Allergy status to other drugs, medicaments and biological substances; Z79.899 Other long term (current) drug therapy
CPT/HCPCS: 36415; 71045; 76770; 80048; 80053; 81003; 82550; 82553; 82803; 82948; 83605; 83735; 83880; 84100; 84484; 85025; 85610; 85730; 87040; 87081; 87086; 93005; 94640; 94660; 94761; 96365; 96372; 96375; 97112; 97116; 97163-GP; 97530; 99291; J0610; J0696; J1644; J1815; J1940; J3475; J3490; J7060; J7613; Q0092

== ENCOUNTER 2023-03-04 11:37 | Inpatient (IN) | payer MEDICARE, MEDICAID ==
[~2023-03-04] VITALS: Ht 165.1 cm; Wt 122.5 kg
[2023-03-04] VITALS (7 sets, daily range): BP systolic 63–139; BP diastolic 36–68; PULSE 86–95; RESP 12–20; TEMP 97.4–98.7; O2SAT 93–99
[~2023-03-04 11:37] MED LIST changes: +CARV3.12 PO; +FURO40TA9 PO; +SILD20TA PO
[2023-03-04] MEDS ORDERED: NACL 0.9% 1,000 ML IV ONE (11:50)
[2023-03-04] MEDS ORDERED: NOREPINEPHRINE 4 MG in DEXTROSE 5% 250 ML IV ONE (12:20)
[2023-03-04] MEDS ORDERED: NOREPINEPHRINE 4 MG/4 ML VIAL IV ONE ×4 (12:23→20:38)
[2023-03-04 12:48] LABS: BASOPHILS # (AUTO) 0.1 K/uL (0.00-0.22); BASOPHILS % (AUTO) 0.6 % (0.0-2.0); EOSINOPHILS # (AUTO) 0.1 K/uL (0-0.4); EOSINOPHILS % (AUTO) 0.7 % (0.0-4.0); HEMATOCRIT 36.3 % (36-48); HEMOGLOBIN 11.1 g/dL (12.0-16.0); LYMPHOCYTES # (AUTO) 2.6 K/uL (2.5-16.5); LYMPHOCYTES % (AUTO) 14.7 % (20.5-51.1); MEAN CORPUSCULAR HEMOGLOBIN 28 pg (27-31); MEAN CORPUSCULAR HGB CONC 31 g/dL (33-37); MEAN CORPUSCULAR VOLUME 89.9 fL (80-94); MONOCYTES # (AUTO) 1.8 K/uL (0.8-1.0); MONOCYTES % (AUTO) 10.1 % (1.7-9.3); NEUTROPHILS # (AUTO) 13.3 K/uL (1.8-7.7); NEUTROPHILS % (AUTO) 73.9 % (42.2-75.2); PLATELET COUNT (AUTO) 304 K/uL (140-450); RED BLOOD CELL COUNT(AUTO) 4.04 MIL/uL (4.20-5.40); RED CELL DISTRIBUTION WIDTH 15.3 % (11.6-13.7)
[2023-03-04 13:12] LABS: INR 1.15 (0.8-1.2); PARTIAL THROMBOPLASTIN TIME 28.6 secs (22-35.6)
[2023-03-04] MEDS ORDERED: PIPERACILLIN/TAZOBACTAM 3.375 GM in DEXTROSE 5% 50 ML IV ONE (13:15)
[2023-03-04 13:21] LABS: LACTIC ACID 2.4 mmol/L (0.4-2.0)
[2023-03-04 13:26] LABS: ALBUMIN 3.2 g/dL (3.4-5.0); ANION GAP 15.3 (8-16); CALCIUM 8.8 mg/dL (8.5-10.1); CARBON DIOXIDE 23.6 mmol/L (21-32); TOTAL BILIRUBIN 0.6 mg/dL (0.0-1.0); TOTAL PROTEIN, SERUM 7.7 g/dL (6.4-8.2)
[2023-03-04 13:29] LABS: POTASSIUM 6.9 mmol/L (3.5-5.1)
[2023-03-04 13:30] LABS: CREATININE 7.5 mg/dL (0.6-1.3)
[2023-03-04] MEDS ORDERED: PIPERACILLIN/TAZOBACTAM 2.25 GM in DEXTROSE 5% 50 ML IV ONE (13:40)
[2023-03-04] MEDS ORDERED: SODIUM ZIRCONIUM CYCLOSILICATE 10 GM POWD.PACK PO ONE (13:45)
[2023-03-04] MEDS ORDERED: DEXTROSE 50% 50 ML SYR IVP ONE (13:45)
[2023-03-04] MEDS ORDERED: CALCIUM GLUC 1 GM/50 mL NS BAG 50 ML IV ONE (13:45)
[2023-03-04] MEDS ORDERED: INSULIN REGULAR, HUMAN 100 UNIT/ML VIAL IV ONE (13:45)
[2023-03-04 14:22] LABS: ALCOHOL, BLOOD < 3 mg/dL (<10)
[2023-03-04 14:42] LABS: BLOOD GAS PH 7.189 (7.35-7.45)
[2023-03-04 14:43] LABS: BLOOD GAS BASE EXCESS -6.7 mmol/L (-2.0-2.0); BLOOD GAS O2 SAT% 93.3 % (92.0-98.5); BLOOD GAS PCO2 59.1 mmHg (35-45)
[2023-03-04] MEDS ORDERED: MAG SULF 2000 MG/WATER PREMIX 50 ML IV PRN (14:50)
[2023-03-04] MEDS ORDERED: MORPHINE SULFATE 4 MG/ML SYR IVP PRN (14:50)
[2023-03-04] MEDS ORDERED: POTASSIUM CHLORIDE 10 MEQ TABER PO PRN (14:50)
[2023-03-04] MEDS ORDERED: KCL 20 MEQ IN 100 mL PREMIX 200 ML IV PRN (14:50)
[2023-03-04] MEDS ORDERED: ONDANSETRON 4 MG/2 ML VIAL IVP PRN (14:50)
[2023-03-04] MEDS ORDERED: MAGNESIUM OXIDE 400 MG TAB PO PRN (14:50)
[2023-03-04] MEDS ORDERED: ACETAMINOPHEN 325 MG TAB PO PRN (14:50)
[2023-03-04] MEDS ORDERED: DEXTROSE 50% 50 ML SYR IVP PRN (14:55)
[2023-03-04 14:58] LABS: CREATINE KINASE, TOTAL 503 U/L (26-192)
[2023-03-04 15:08] LABS: FLU A ANTIGEN negative (NEGATIVE); FLU B ANTIGEN NEGATIVE (NEGATIVE)
[2023-03-04] MEDS: BLOOD GLUCOSE MONITORING 1 DEV DEV FS SCH ×2 (16:30→21:26)
[2023-03-04] MEDS ORDERED: PIPERACILLIN/TAZOBACTAM 2.25 GM VIAL IV ONE (16:49)
[2023-03-04] MEDS ORDERED: AZITHROMYCIN 500 MG INJ VIAL IV ONE ×2 (17:51→18:06)
[2023-03-04] MEDS: AZITHROMYCIN 500 MG in DEXTROSE 5% 250 ML IV SCH (18:18)
[2023-03-04] MEDS ORDERED: cefTRIAXone 1,000 MG VIAL ONE (19:22)
[2023-03-04] MEDS: FUROSEMIDE 40 MG/4 ML VIAL IVP SCH (21:08)
[2023-03-04] MEDS: INSULIN LISPRO SLIDING SCALE 100 UNITS/ML VIAL SUBQ PRN (21:29)
[2023-03-05] VITALS (24 sets, daily range): BP systolic 90–129; BP diastolic 56–72; PULSE 27–92; RESP 14–32; TEMP 96.5–98.7; O2SAT 92–95
[2023-03-05] MEDS: NOREPINEPHRINE 8 MG in DEXTROSE 5% 250 ML IV PRN ×5 (00:21→20:59)
[2023-03-05] MEDS ORDERED: NOREPINEPHRINE 4 MG/4 ML VIAL IV ONE (03:28)
[2023-03-05 05:21] LABS: BASOPHILS # (AUTO) 0.1 K/uL (0.00-0.22); BASOPHILS % (AUTO) 0.5 % (0.0-2.0); EOSINOPHILS # (AUTO) 0.3 K/uL (0-0.4); EOSINOPHILS % (AUTO) 1.6 % (0.0-4.0); HEMOGLOBIN 11.2 g/dL (12.0-16.0); LYMPHOCYTES # (AUTO) 2.8 K/uL (2.5-16.5); LYMPHOCYTES % (AUTO) 15.1 % (20.5-51.1); MEAN CORPUSCULAR HEMOGLOBIN 28 pg (27-31); MEAN CORPUSCULAR HGB CONC 31 g/dL (33-37); MEAN CORPUSCULAR VOLUME 89.5 fL (80-94); MONOCYTES # (AUTO) 1.9 K/uL (0.8-1.0); MONOCYTES % (AUTO) 10.3 % (1.7-9.3); NEUTROPHILS # (AUTO) 13.5 K/uL (1.8-7.7); NEUTROPHILS % (AUTO) 72.5 % (42.2-75.2); PLATELET COUNT (AUTO) 297 K/uL (140-450); RED BLOOD CELL COUNT(AUTO) 4.02 MIL/uL (4.20-5.40); RED CELL DISTRIBUTION WIDTH 15.3 % (11.6-13.7); WHITE BLOOD COUNT (AUTO) 18.6 K/uL (4.8-10.8)
[2023-03-05 06:26] LABS: ALBUMIN 2.9 g/dL (3.4-5.0); ANION GAP 17.6 (8-16); CALCIUM 8.7 mg/dL (8.5-10.1); CARBON DIOXIDE 23.7 mmol/L (21-32); TOTAL BILIRUBIN 0.5 mg/dL (0.0-1.0); TOTAL PROTEIN, SERUM 7.4 g/dL (6.4-8.2)
[2023-03-05 06:35] LABS: POTASSIUM 6.3 mmol/L (3.5-5.1)
[2023-03-05] MEDS ORDERED: SODIUM POLYSTYRENE 15 GM/60 ML UDBTL PR SCH (06:55)
[2023-03-05] MEDS: BLOOD GLUCOSE MONITORING 1 DEV DEV FS SCH ×4 (07:30→20:18)
[2023-03-05] MEDS: FUROSEMIDE 40 MG/4 ML VIAL IVP SCH ×2 (08:37→20:03)
[2023-03-05] MEDS: INSULIN LISPRO SLIDING SCALE 100 UNITS/ML VIAL SUBQ PRN ×2 (08:59→20:22)
[2023-03-05 11:11] LABS: APPEARANCE,URINE CLEAR (CLEAR); BILIRUBIN,URINE NEGATIVE (NEGATIVE); BLOOD, URINE 2+ (NEGATIVE); COLOR,URINE YELLOW (YELLOW); LEUKOCYTE ESTERASE ,URINE NEGATIVE (NEGATIVE); NITRITE, URINE NEGATIVE (NEGATIVE); PH,URINE 5.5 (5.0-9.0); PROTEIN,URINE 1+ (NEGATIVE); UGLUCOSE NEGATIVE (NEGATIVE); UROBILINOGEN,URINE 0.2 EU/dL (0.2 - 1)
[2023-03-05] MEDS: NACL 0.9% 1,000 ML IV SCH (11:20)
[2023-03-05 11:22] LABS: BACTERIA,URINE 1+ /HPF (None Seen); RBC,URINE 11-20 (MOD) /HPF (0-5); SQUAMOUS EPITHELIAL CELL,UR 20-50 /LPF (0-3 (FEW)); WBC,URINE 0-5 /HPF (0-5)
[2023-03-05 11:48] LABS: BLOOD GAS PH 7.198 (7.35-7.45)
[2023-03-05 11:49] LABS: BLOOD GAS BASE EXCESS -6.6 mmol/L (-2.0-2.0); BLOOD GAS HCO3 22.1 mmol/L (22-26); BLOOD GAS PCO2 58.1 mmHg (35-45); BLOOD GAS PO2 73.8 mmHg (75-100)
[2023-03-05 11:50] LABS: BLOOD GAS O2 SAT% 92.9 % (92.0-98.5)
[2023-03-05] MEDS: PIPERACILLIN/TAZOBACTAM 2.25 GM in DEXTROSE 5% 50 ML IV SCH ×2 (12:28→20:32)
[2023-03-05 13:15] LABS: ANION GAP 15.6 (8-16); CALCIUM 8.4 mg/dL (8.5-10.1); CARBON DIOXIDE 25.9 mmol/L (21-32); POTASSIUM 5.5 mmol/L (3.5-5.1)
[2023-03-05 13:23] LABS: CREATININE 6.8 mg/dL (0.6-1.3)
[2023-03-05] MEDS: AZITHROMYCIN 500 MG in DEXTROSE 5% 250 ML IV SCH (14:12)
[2023-03-05 15:03] LABS: BLOOD GAS BASE EXCESS -5.2 mmol/L (-2.0-2.0); BLOOD GAS HCO3 21.6 mmol/L (22-26); BLOOD GAS PCO2 47.4 mmHg (35-45); BLOOD GAS PH 7.277 (7.35-7.45)
[2023-03-06] VITALS (70 sets, daily range): BP systolic 89–157; BP diastolic 46–79; PULSE 27–105; RESP 14–30; TEMP 97.5–99.1; O2SAT 90–98
[2023-03-06] MEDS: NOREPINEPHRINE 8 MG in DEXTROSE 5% 250 ML IV PRN (02:38)
[2023-03-06] MEDS: PIPERACILLIN/TAZOBACTAM 2.25 GM in DEXTROSE 5% 50 ML IV SCH ×3 (04:12→21:06)
[2023-03-06] MEDS: NACL 0.9% 1,000 ML IV SCH ×2 (05:19→23:25)
[2023-03-06 05:53] LABS: BASOPHILS # (AUTO) 0.1 K/uL (0.00-0.22); BASOPHILS % (AUTO) 0.5 % (0.0-2.0); EOSINOPHILS # (AUTO) 0.6 K/uL (0-0.4); EOSINOPHILS % (AUTO) 4.9 % (0.0-4.0); HEMATOCRIT 34.4 % (36-48); HEMOGLOBIN 10.8 g/dL (12.0-16.0); LYMPHOCYTES # (AUTO) 1.8 K/uL (2.5-16.5); LYMPHOCYTES % (AUTO) 13.9 % (20.5-51.1); MEAN CORPUSCULAR HEMOGLOBIN 27 pg (27-31); MEAN CORPUSCULAR HGB CONC 31 g/dL (33-37); MEAN CORPUSCULAR VOLUME 87.5 fL (80-94); MONOCYTES # (AUTO) 1.4 K/uL (0.8-1.0); MONOCYTES % (AUTO) 11.2 % (1.7-9.3); NEUTROPHILS # (AUTO) 8.9 K/uL (1.8-7.7); NEUTROPHILS % (AUTO) 69.5 % (42.2-75.2); PLATELET COUNT (AUTO) 265 K/uL (140-450); RED BLOOD CELL COUNT(AUTO) 3.93 MIL/uL (4.20-5.40); WHITE BLOOD COUNT (AUTO) 12.8 K/uL (4.8-10.8)
[2023-03-06 06:23] LABS: ALBUMIN 2.6 g/dL (3.4-5.0); ANION GAP 14.1 (8-16); CALCIUM 8.5 mg/dL (8.5-10.1); CARBON DIOXIDE 27.2 mmol/L (21-32); MAGNESIUM 1.6 mg/dL (1.8-2.4); POTASSIUM 5.3 mmol/L (3.5-5.1); TOTAL BILIRUBIN 0.7 mg/dL (0.0-1.0); TOTAL PROTEIN, SERUM 6.9 g/dL (6.4-8.2)
[2023-03-06 06:27] LABS: CREATININE 4.5 mg/dL (0.6-1.3)
[2023-03-06] MEDS: BLOOD GLUCOSE MONITORING 1 DEV DEV FS SCH ×4 (07:53→20:33)
[2023-03-06] MEDS: INSULIN LISPRO SLIDING SCALE 100 UNITS/ML VIAL SUBQ PRN (07:55)
[2023-03-06] MEDS: FUROSEMIDE 40 MG/4 ML VIAL IVP SCH ×2 (08:47→21:06)
[2023-03-06] MEDS: AZITHROMYCIN 500 MG in DEXTROSE 5% 250 ML IV SCH (14:49)
[2023-03-06] MEDS: MIDODRINE 5 MG TAB PO SCH (18:30)
[2023-03-07] VITALS (21 sets, daily range): BP systolic 91–123; BP diastolic 55–76; PULSE 83–100; RESP 16–33; TEMP 97.5–99.2; O2SAT 90–97
[2023-03-07] MEDS: PIPERACILLIN/TAZOBACTAM 2.25 GM in DEXTROSE 5% 50 ML IV SCH ×3 (04:04→21:08)
[2023-03-07 05:56] LABS: BASOPHILS # (AUTO) 0.1 K/uL (0.00-0.22); BASOPHILS % (AUTO) 0.7 % (0.0-2.0); EOSINOPHILS # (AUTO) 0.7 K/uL (0-0.4); EOSINOPHILS % (AUTO) 8.5 % (0.0-4.0); HEMATOCRIT 33.8 % (36-48); HEMOGLOBIN 10.8 g/dL (12.0-16.0); LYMPHOCYTES # (AUTO) 1.7 K/uL (2.5-16.5); LYMPHOCYTES % (AUTO) 20.6 % (20.5-51.1); MEAN CORPUSCULAR HEMOGLOBIN 28 pg (27-31); MEAN CORPUSCULAR HGB CONC 32 g/dL (33-37); MEAN CORPUSCULAR VOLUME 87.5 fL (80-94); MONOCYTES # (AUTO) 1.3 K/uL (0.8-1.0); MONOCYTES % (AUTO) 15.4 % (1.7-9.3); NEUTROPHILS # (AUTO) 4.6 K/uL (1.8-7.7); PLATELET COUNT (AUTO) 235 K/uL (140-450); RED BLOOD CELL COUNT(AUTO) 3.87 MIL/uL (4.20-5.40); RED CELL DISTRIBUTION WIDTH 15.2 % (11.6-13.7); WHITE BLOOD COUNT (AUTO) 8.4 K/uL (4.8-10.8)
[2023-03-07 06:34] LABS: NEUTROPHILS % (AUTO) 54.8 % (42.2-75.2)
[2023-03-07 06:40] LABS: ALBUMIN 2.4 g/dL (3.4-5.0); ANION GAP 11.6 (8-16); CALCIUM 8.6 mg/dL (8.5-10.1); CARBON DIOXIDE 30.2 mmol/L (21-32); CREATININE 2.8 mg/dL (0.6-1.3); MAGNESIUM 1.4 mg/dL (1.8-2.4); POTASSIUM 4.8 mmol/L (3.5-5.1); TOTAL BILIRUBIN 0.6 mg/dL (0.0-1.0); TOTAL PROTEIN, SERUM 6.6 g/dL (6.4-8.2)
[2023-03-07] MEDS: MIDODRINE 5 MG TAB PO SCH ×4 (06:47→21:10)
[2023-03-07] MEDS: BLOOD GLUCOSE MONITORING 1 DEV DEV FS SCH ×4 (07:50→21:07)
[2023-03-07] MEDS ORDERED: ALBUMIN HUMAN 25% 100 ML IV PRN (10:10)
[2023-03-07] MEDS: HYDROcodone/APAP 5/325 MG 1 TAB TAB PO PRN (15:14)
[2023-03-07] MEDS: AZITHROMYCIN 500 MG in DEXTROSE 5% 250 ML IV SCH (16:47)
[2023-03-08] VITALS (10 sets, daily range): BP systolic 100–130; BP diastolic 47–76; PULSE 83–97; RESP 16–22; TEMP 97–98.4; O2SAT 90–99
[2023-03-08 05:39] LABS: BASOPHILS # (AUTO) 0.1 K/uL (0.00-0.22); BASOPHILS % (AUTO) 0.8 % (0.0-2.0); EOSINOPHILS # (AUTO) 0.6 K/uL (0-0.4); EOSINOPHILS % (AUTO) 6.2 % (0.0-4.0); LYMPHOCYTES # (AUTO) 2.4 K/uL (2.5-16.5); LYMPHOCYTES % (AUTO) 23.1 % (20.5-51.1); MEAN CORPUSCULAR HEMOGLOBIN 28 pg (27-31); MEAN CORPUSCULAR HGB CONC 32 g/dL (33-37); MEAN CORPUSCULAR VOLUME 87.6 fL (80-94); MONOCYTES # (AUTO) 1.3 K/uL (0.8-1.0); NEUTROPHILS # (AUTO) 5.8 K/uL (1.8-7.7); NEUTROPHILS % (AUTO) 56.9 % (42.2-75.2); PLATELET COUNT (AUTO) 227 K/uL (140-450); RED BLOOD CELL COUNT(AUTO) 4.34 MIL/uL (4.20-5.40); RED CELL DISTRIBUTION WIDTH 15.1 % (11.6-13.7); WHITE BLOOD COUNT (AUTO) 10.2 K/uL (4.8-10.8)
[2023-03-08] MEDS: PIPERACILLIN/TAZOBACTAM 2.25 GM in DEXTROSE 5% 50 ML IV SCH ×3 (05:53→23:39)
[2023-03-08 06:03] LABS: ALBUMIN 2.7 g/dL (3.4-5.0); ANION GAP 12.7 (8-16); CALCIUM 9.6 mg/dL (8.5-10.1); CARBON DIOXIDE 29.1 mmol/L (21-32); CREATININE 1.9 mg/dL (0.6-1.3); MAGNESIUM 1.7 mg/dL (1.8-2.4); POTASSIUM 4.8 mmol/L (3.5-5.1); TOTAL BILIRUBIN 0.7 mg/dL (0.0-1.0); TOTAL PROTEIN, SERUM 7.5 g/dL (6.4-8.2)
[2023-03-08] MEDS: MIDODRINE 5 MG TAB PO SCH ×3 (06:04→23:28)
[2023-03-08] MEDS: BLOOD GLUCOSE MONITORING 1 DEV DEV FS SCH ×4 (07:32→21:00)
[2023-03-08] MEDS: FUROSEMIDE 40 MG/4 ML VIAL IVP SCH (09:00)
[2023-03-08] MEDS: PANTOPRAZOLE 40 MG INJ VIAL IVP SCH (09:55)
[2023-03-08] MEDS ORDERED: MAG SULF 2000 MG/WATER PREMIX 50 ML IV SCH (10:00)
[2023-03-08] MEDS: AZITHROMYCIN 500 MG in DEXTROSE 5% 250 ML IV SCH (15:00)
[2023-03-08] MEDS ORDERED: LORazepam 2 MG/ML VIAL IM/IVP PRN (21:40)
[2023-03-08] MEDS: HYDROcodone/APAP 5/325 MG 1 TAB TAB PO PRN (23:53)
[2023-03-09] VITALS (13 sets, daily range): BP systolic 103–136; BP diastolic 61–78; PULSE 73–96; RESP 18–20; TEMP 97.7–98.6; O2SAT 94–100
[2023-03-09] MEDS: MIDODRINE 5 MG TAB PO SCH ×3 (05:00→21:25)
[2023-03-09 05:33] LABS: BASOPHILS # (AUTO) 0.1 K/uL (0.00-0.22); BASOPHILS % (AUTO) 0.9 % (0.0-2.0); EOSINOPHILS # (AUTO) 0.5 K/uL (0-0.4); EOSINOPHILS % (AUTO) 4.2 % (0.0-4.0); HEMATOCRIT 34.2 % (36-48); HEMOGLOBIN 10.9 g/dL (12.0-16.0); LYMPHOCYTES # (AUTO) 2.3 K/uL (2.5-16.5); LYMPHOCYTES % (AUTO) 20.2 % (20.5-51.1); MEAN CORPUSCULAR HEMOGLOBIN 28 pg (27-31); MEAN CORPUSCULAR HGB CONC 32 g/dL (33-37); MEAN CORPUSCULAR VOLUME 87.5 fL (80-94); MONOCYTES # (AUTO) 1.4 K/uL (0.8-1.0); MONOCYTES % (AUTO) 12.7 % (1.7-9.3); PLATELET COUNT (AUTO) 205 K/uL (140-450); RED BLOOD CELL COUNT(AUTO) 3.91 MIL/uL (4.20-5.40); RED CELL DISTRIBUTION WIDTH 14.8 % (11.6-13.7); WHITE BLOOD COUNT (AUTO) 11.3 K/uL (4.8-10.8)
[2023-03-09] MEDS: PIPERACILLIN/TAZOBACTAM 2.25 GM in DEXTROSE 5% 50 ML IV SCH ×3 (05:45→20:53)
[2023-03-09 05:51] LABS: ALBUMIN 2.8 g/dL (3.4-5.0); ANION GAP 11.1 (8-16); CALCIUM 9.4 mg/dL (8.5-10.1); CARBON DIOXIDE 30.3 mmol/L (21-32); CREATININE 1.3 mg/dL (0.6-1.3); MAGNESIUM 1.9 mg/dL (1.8-2.4); POTASSIUM 4.4 mmol/L (3.5-5.1); TOTAL BILIRUBIN 0.9 mg/dL (0.0-1.0); TOTAL PROTEIN, SERUM 7.3 g/dL (6.4-8.2)
[2023-03-09] MEDS: BLOOD GLUCOSE MONITORING 1 DEV DEV FS SCH ×4 (07:30→21:33)
[2023-03-09] MEDS: FUROSEMIDE 40 MG/4 ML VIAL IVP SCH (09:00)
[2023-03-09] MEDS: PANTOPRAZOLE 40 MG INJ VIAL IVP SCH (09:00)
[2023-03-09] MEDS: HYDROcodone/APAP 5/325 MG 1 TAB TAB PO PRN ×2 (15:46→21:26)
[2023-03-10] VITALS (11 sets, daily range): BP systolic 109–127; BP diastolic 54–68; PULSE 77–88; RESP 17–20; TEMP 36.5; O2SAT 93–99
[2023-03-10] MEDS: PIPERACILLIN/TAZOBACTAM 2.25 GM in DEXTROSE 5% 50 ML IV SCH ×3 (04:10→20:29)
[2023-03-10 05:38] LABS: ANION GAP 10.3 (8-16); CREATININE 1.3 mg/dL (0.6-1.3); POTASSIUM 4.3 mmol/L (3.5-5.1)
[2023-03-10] MEDS: MIDODRINE 5 MG TAB PO SCH ×3 (06:05→20:30)
[2023-03-10] MEDS: HYDROcodone/APAP 5/325 MG 1 TAB TAB PO PRN ×3 (06:10→23:09)
[2023-03-10] MEDS: BLOOD GLUCOSE MONITORING 1 DEV DEV FS SCH (06:35)
[2023-03-10] MEDS: FUROSEMIDE 40 MG/4 ML VIAL IVP SCH (08:51)
[2023-03-10] MEDS: PANTOPRAZOLE 40 MG INJ VIAL IVP SCH (08:52)
[2023-03-11 04:00] VITALS: BP 106/57; PULSE 75; RESP 19; TEMP 97.5; O2SAT 97
[2023-03-11] MEDS: MIDODRINE 5 MG TAB PO SCH ×2 (05:13→13:28)
[2023-03-11] MEDS: PIPERACILLIN/TAZOBACTAM 2.25 GM in DEXTROSE 5% 50 ML IV SCH ×2 (05:14→13:29)
[2023-03-11] MEDS: HYDROcodone/APAP 5/325 MG 1 TAB TAB PO PRN ×2 (05:29→13:32)
[2023-03-11 05:46] LABS: ANION GAP 9.1 (8-16); CALCIUM 9.3 mg/dL (8.5-10.1); CREATININE 1.3 mg/dL (0.6-1.3); POTASSIUM 4.1 mmol/L (3.5-5.1)
[2023-03-11 07:16] VITALS: O2SAT 95
[2023-03-11 08:00] VITALS: PULSE 69; RESP 18; TEMP 97.9; O2SAT 98
[2023-03-11] MEDS: PANTOPRAZOLE 40 MG INJ VIAL IVP SCH (09:28)
[2023-03-11] MEDS: FUROSEMIDE 40 MG/4 ML VIAL IVP SCH (09:29)
[2023-03-11] MEDS ORDERED: AMOX-999 PO (15:51)
[2023-03-11] MEDS ORDERED: ACET-9525 PO (15:51)
[2023-03-11] MEDS ORDERED: PRO5 PO (15:51)
[2023-03-11] MEDS ORDERED: ACET-1182 PO (15:51)
[2023-03-11 16:39] VITALS: BP 107/65
[2023-03-11] MEDS ORDERED: FUROSEMIDE 40 MG TAB PO SCH (17:00)
== END 2023-03-11 17:40 | DRG 871 ==
LOC: MED 11:37 → MTU 17:38 → MIC 18:11 → MTU 03-07 07:15
PROVIDERS: ADMIT Hospitalist; ATTEND Hospitalist
PROC: 02HV33Z Insertion of Infusion Device into Superior Vena Cava, Percutaneous Approach (ICD-10-PCS; principal; 2023-03-04)
PROC: 5A09457 Assistance with Respiratory Ventilation, 24-96 Consecutive Hours, Continuous Positive Airway Pressure (ICD-10-PCS; 2023-03-04)
PROC: B548ZZA Ultrasonography of Superior Vena Cava, Guidance (ICD-10-PCS; 2023-03-04)
DX: A41.9 Sepsis, unspecified organism (principal); I50.23 Acute on chronic systolic (congestive) heart failure; J15.9 Unspecified bacterial pneumonia; J96.01 Acute respiratory failure with hypoxia; J96.02 Acute respiratory failure with hypercapnia; R65.21 Severe sepsis with septic shock; N17.9 Acute kidney failure, unspecified; E87.20 Acidosis, unspecified; E66.2 Morbid (severe) obesity with alveolar hypoventilation; I13.0 Hypertensive heart and chronic kidney disease with heart failure and stage 1 through stage 4 chronic kidney disease, or unspecified chronic kidney disease; Z68.41 Body mass index [BMI] 40.0-44.9, adult; Z66 Do not resuscitate; Z20.822 Contact with and (suspected) exposure to COVID-19; E78.5 Hyperlipidemia, unspecified; E87.5 Hyperkalemia; E11.22 Type 2 diabetes mellitus with diabetic chronic kidney disease; N18.9 Chronic kidney disease, unspecified; E83.42 Hypomagnesemia; Z88.5 Allergy status to narcotic agent
CPT/HCPCS: 36415; 36600; 70450; 71045; 80048; 80053; 81001; 82550; 82553; 82803; 82948; 83605; 83735; 83880; 84484; 85025; 85379; 85610; 85730; 87040; 87081; 87086; 93005; 96361; 96374; 96375; 97110; 97112; 97530; 99291; C9113; G0482; J0456; J0610; J0696; J1644; J1815; J1940; J2060; J2543; J3475; J3490; J7060; Q0092